=== PATIENT | male | born 1960 | race African-American/Black ===

== ENCOUNTER 2017-04-19 23:05 | Emergency (ER) | payer OTHER | END 2017-04-20 00:04 | disposition home or self-care (01) | LOC: ER 23:05 | DX: J02.9 Acute pharyngitis, unspecified (principal); H92.01 Otalgia, right ear; R13.10 Dysphagia, unspecified | CPT/HCPCS: 99283 ==

== ENCOUNTER 2018-11-25 19:57 | Inpatient (IN) | payer OTHER ==
[~2018-11-25] VITALS: Ht 182.9 cm; Wt 108.4 kg
[~2018-11-25 19:57] MED LIST: AMOX500C PO
[2018-11-25] MEDS ORDERED: diphenhydrAMINE 50 MG/ML VIAL ONE (20:01)
[2018-11-25] MEDS ORDERED: EPINEPHrine 1 MG/ML VIAL ONE (20:01)
[2018-11-25] MEDS ORDERED: FAMOTIDINE 20 MG/2 ML VIAL ONE (20:01)
[2018-11-25] MEDS ORDERED: methylPREDNISolone SOD SUCC PF 125 MG/2 ML VIAL. ONE (20:10)
[2018-11-25] MEDS ORDERED: EPINEPHrine 1 MG/ML VIAL IM PRN ×2 (20:10→22:45)
[2018-11-25] MEDS ORDERED: methylPREDNISolone SOD SUCC PF 125 MG/2 ML VIAL. IV ONE (20:11)
[2018-11-25] MEDS ORDERED: FAMOTIDINE 20 MG/2 ML VIAL IVP ONE (20:11)
[2018-11-25] MEDS ORDERED: diphenhydrAMINE 50 MG/ML VIAL IVP ONE (20:11)
[2018-11-25] MEDS ORDERED: ETOMIDATE 20 MG/10 ML VIAL. IV ONE (20:19)
[2018-11-25] MEDS ORDERED: IV NORMAL SALINE 1000ML BAG 1,000 ML IV ONE (20:19)
[2018-11-25] MEDS ORDERED: PROPOFOL 50 ML IV ONE ×2 (20:21→21:13)
[2018-11-25] MEDS ORDERED: MIDAZOLAM HCL/PF 5 MG/5 ML VIAL. IV ONE ×2 (20:24→21:32)
[2018-11-25] MEDS ORDERED: PROPOFOL 10 MG/ML (20ML) VIAL. IV ONE ×2 (20:25→21:12)
[2018-11-25] MEDS: PROPOFOL 100 ML IV PRN ×3 (20:26→23:58)
[2018-11-25] MEDS ORDERED: ROCURONIUM 50 MG/5 ML VIAL. IV ONE (20:29)
[2018-11-25 20:42] LABS: BASO % 1 % (0-3); EOS # 0.2 x10^3/uL (0.0-0.7); EOS % 2 % (0-3); HEMATOCRIT 49.3 % (39.0-53.0); HEMOGLOBIN 16.4 g/dL (13.0-17.5); LYMPH # 2.7 x10^3/uL (1.0-4.8); LYMPH % 35 % (24-48); MEAN CORPUSCULAR HEMOGLOBIN 27 pg (25-35); MEAN CORPUSCULAR HGB CONC 33 g/dL (31-37); MEAN CORPUSCULAR VOLUME 83 fL (79-100); MONO # 0.9 x10^3/uL (0.0-1.1); MONO % 12 % (0-9); NEUT # 3.8 x10^3/uL (1.8-7.7); NEUT % 50 % (31-73); PLATELET COUNT 258 x10^3/uL (140-400); RED BLOOD COUNT 5.98 x10^6/uL (4.30-5.70); WHITE BLOOD COUNT 7.5 x10^3/uL (4.0-11.0)
[2018-11-25] MEDS ORDERED: fentaNYL PF VIAL 100 MCG/2 ML VIAL IV PRN (20:45)
[2018-11-25 20:56] LABS: BASE EXCESS ABG -7 mmol/L (-3-3); HCO3 ABG 21 mmol/L (21-28); PCO2 ABG 49 mmHg (35-46); PO2 ABG 133 mmHg (65-108); SAT O2 ABG 98 % (92-99)
--- NOTE | 2018-11-25 20:56 | PHYS DOC ---
Past Medical History Past Medical History: Hypertension Past Surgical History: Other Additional Past Surgical Histo: RUE Alcohol Use: Occasionally Drug Use: None Intubation Procedure Intub Indication: Respiratory failure Consent: Unable to give consent due to emergent nature. Medications Used: see nursing note Procedure: The patient was placed in the appropriate position. Intubation was performed [CORD VISUALIZATION METHOD] [ET TUBE SIZE] endotracheal tube. [ET SE CURE]. Initial confirmation of placement included bilateral breath sounds, tube fogging, adequate chest rise, adequate pulse oximetry reading. A chest x-ray to verify correct placement of the tube showed appropriate tube position. The patient tolerated the procedure well. Complications: none. Critical Care Time Critical care time was [] minutes exclusive of procedures. Adult General Chief Complaint Chief Complaint: SHORTNESS OF BREATH HPI HPI 58-year-old male presents to the emergency department with complaints of throat swelling, difficulty swallowing. Onset was roughly 2 hours prior to his arrival. Patient states he woke up from a nap and had difficulty swallowing as well as some shortness of breath. Patient states he takes lisinopril. He's never had a reaction like this before. He has no facial swelling however is talking as if he has a hot potato in his mouth. Patient denies any fever, chest pain, nausea, vomiting. Nothing makes his symptoms worse, nothing makes them better. Saturations on arrival, 97% the patient was without acute distress. Review of Systems Review of Systems Constitutional: Denies fever or chills [] HENT: Difficulty swallowing Respiratory: Shortness of breath Cardiovascular: No additional information not addressed in HPI [] GI: Denies abdominal pain, nausea, vomiting, bloody stools or diarrhea [] Musculoskeletal: Denies back pain or joint pain [] Integument: Denies rash or skin lesions [] Neurologic: Denies headache, focal weakness or sensory changes [] All other systems were reviewed and found to be within normal limits, except as documented in this note. Current Medications Current Medications Current Medications Medications (Trade) Dose Ordered Sig/Logan Start Time Stop Time Status Last Admin Dose Admin Diphenhydramine HCl (Benadryl) 50 mg 1X ONCE 11/25/18 20:11 11/25/18 22:30 DC 11/25/18 20:11 50 MG Epinephrine HCl (Adrenalin) 0.3 mg PRN Q5MIN PRN 11/25/18 20:10 11/25/18 23:15 DC 11/25/18 20:10 0.3 MG Etomidate (Amidate) 20 mg 1X ONCE 11/25/18 20:19 11/25/18 22:28 DC 11/25/18 20:19 20 MG Famotidine (Pepcid Vial) 20 mg 1X ONCE 11/25/18 20:11 11/25/18 22:28 DC 11/25/18 20:11 20 MG Fentanyl Citrate (Fentanyl 2ml Vial) 50 mcg PRN Q1HR PRN 11/25/18 20:45 11/25/18 21:15 50 MCG Methylprednisolone Sodium Succinate (SOLU-Medrol 125MG VIAL) 125 mg 1X ONCE 11/25/18 20:11 11/25/18 22:30 DC 11/25/18 20:11 125 MG Midazolam HCl (Versed) 5 mg 1X ONCE 11/25/18 20:24 11/25/18 22:30 DC 11/25/18 20:24 5 MG Propofol (Diprivan) 100 mg 1X ONCE 11/25/18 20:25 11/25/18 22:30 DC 11/25/18 20:25 100 MG Rocuronium [place] (Zemuron) 50 mg 1X ONCE 11/25/18 20:29 11/25/18 22:32 DC 11/25/18 20:29 50 MG Sodium Chloride 1,000 ml @ 1,000 mls/hr 1X ONCE 11/25/18 20:19 11/25/18 22:38 DC 11/25/18 20:19 1,000 MLS/HR Allergies Allergies Allergies Coded Allergies Type Severity Reaction Last Updated Verified No Known Drug Allergies 11/25/18 No Physical Exam Physical Exam Constitutional: Well developed, well nourished, mild distress, non-toxic appearance. [] HENT: Normocephalic, atraumatic, bilateral external ears normal, oropharynx moist, uvula very large size sitting in the back of his throat he has some post erior pharynx swelling as well, no oral exudates, nose normal. [] Eyes: PERRLA, EOMI, conjunctiva normal, no discharge. [] Neck: Normal range of motion, no tenderness, supple, no stridor. [] Cardiovascular:Heart rate regular rhythm, no murmur [] Lungs & Thorax: Bilateral breath sounds clear to auscultation [] Abdomen: Bowel sounds normal, soft, no tenderness, no masses, no pulsatile masses. [] Skin: Warm, dry, no erythema, no rash. [] Extremities: No tenderness, no edema. [] Neurologic: Alert and oriented X 3, no focal deficits noted. [] Psychologic: Affect normal, judgement normal, mood normal. [] Current Patient Data Vital Signs Vital Signs Date Time Temp Pulse Resp B/P (MAP) Pulse Ox O2 Delivery O2 Flow Rate FiO2 11/25/18 20:50 100 185/86 (119) 100 Ventilator 11/25/18 19:57 97.6 20 97.6 Lab Values Laboratory Tests Test 11/25/18 20:03 11/25/18 20:48 White Blood Count 7.5 x10^3/uL (4.0-11.0) Red Blood Count 5.98 x10^6/uL (4.30-5.70) H Hemoglobin 16.4 g/dL (13.0-17.5) Hematocrit 49.3 % (39.0-53.0) Mean Corpuscular Volume 83 fL (79-100) Mean Corpuscular Hemoglobin 27 pg (25-35) Mean Corpuscular Hemoglobin Concent 33 g/dL (31-37) Red Cell Distribution Width 15.0 % (11.5-14.5) H Platelet Count 258 x10^3/uL (140-400) Neutrophils (%) (Auto) 50 % (31-73) Lymphocytes (%) (Auto) 35 % (24-48) Monocytes (%) (Auto) 12 % (0-9) H Eosinophils (%) (Auto) 2 % (0-3) Basophils (%) (Auto) 1 % (0-3) Neutrophils # (Auto) 3.8 x10^3/uL (1.8-7.7) Lymphocytes # (Auto) 2.7 x10^3/uL (1.0-4.8) Monocytes # (Auto) 0.9 x10^3/uL (0.0-1.1) Eosinophils # (Auto) 0.2 x10^3/uL (0.0-0.7) Basophils # (Auto) 0.0 x10^3/uL (0.0-0.2) O2 Saturation 98 % (92-99) Arterial Blood pH 7.24 (7.35-7.45) L Arterial Blood pCO2 at Patient Temp 49 mmHg (35-46) H Arterial Blood pO2 at Patient Temp 133 mmHg (65-108) H Arterial Blood HCO3 21 mmol/L (21-28) Arterial Blood Base Excess -7 mmol/L (-3-3) L FiO2 50 Laboratory Tests 11/25/18 20:03 EKG EKG EKG reviewed normal sinus rhythm appreciated, no evidence of acute ST or T wave change, nonurgently EKG he[] Interpretation Time: Interpretation time 2004 Radiology/Procedures Radiology/Procedures [facility] [address] [place] [address] IMAGING REPORT Signed PATIENT: JANKI SANDRA AACCOUNT: [id number] : 1960 LOCATION: [address] [place] [address] AGE: 58 SEX: M EXAM STATUS: ADM IN ORD. PHYSICIAN: PAULINE PICKERING MD REASON: post intubation PROCEDURE: PORTABLE CHEST 1V AP chest x-ray HISTORY: Status post intubation. FINDINGS: Nasogastric tube extends to the abdomen. Endotracheal tube tip 6 m above the dia. Borderline cardiomegaly. Elevation of the right diaphragm versus a large eventration with mild passive atelectasis of the right middle and lower lobes. There are bilateral perihilar and lower lobe opacities which could be atelectasis versus pulmonary edema given mild fissural thickening present which could indicate edema. IMPRESSION: Lines and tubes as described above. Borderline cardiomegaly. Perihilar and lower lobe opacities could represent atelectasis or mild pulmonary edema. AP abdomen x-ray HISTORY: Orogastric tube verification after intubation. FINDINGS: The left lateral abdomen and flank are outside the [id number]. Heterogeneous opacities lung bases. Nasogastric tube tip left upper quadrant general radiographic region gastric body. No dilated bowel loops. Mild volume of stool within the right-sided colon. Bones unremarkable. IMPRESSION: Orogastric intubation. Electronically signed by: Waqar Salinas MD (11/25/2018 11:22 PM) [facility] DICTATED and SIGNED BY: WAQAR SALINAS MD DATE: 11/25/18 2266 [] Course & Med Decision Making Course & Med Decision Making Pertinent Labs and Imaging studies reviewed. (See chart for details) []58-year-old male presents to the emergency department with complaints of throa t swelling, difficulty swallowing. Onset was roughly 2 hours prior to his arrival. Patient states he woke up from a nap and had difficulty swallowing as well as some shortness of breath. Patient states he takes lisinopril. He's never had a reaction like this before. He has no facial swelling however is talking as if he has a hot potato in his mouth. Patient denies any fever, chest pain, nausea, vomiting. Nothing makes his symptoms worse, nothing makes them better. Saturations on arrival, 97% the patient was without acute distress. Patient was evaluated in the emergency department with concerns for posterior edema, uvula swelling, compromise. Patient was provided with Solu-Medrol, 125 mg, Pepcid, 20 mg, Benadryl, 50 mg. As well, patient received 0.3 mg epinephrine IM. Given continued concern of swelling and airway compromise, patient was electively intubated. Please see intubation procedure note. Tube was secured 24th the teeth. Chest x-ray was obtained revealing evidence of pulmonary edema, placement of tube appropriate. Orogastric tube in place. Lasix 40mg IV x 1 Propofol/Versed used for sedation Discussed findings with patient's significant other at bedside and plans for admission to the ICU. Discussed admission with Dr. Lopez. Pulmonary consultation from ER. Patient stable after airway protected Dragon Disclaimer Dragon Disclaimer This electronic medical record was generated, in whole or in part, using a voice recognition dictation system. Intubation Procedure Intub Indication: Respiratory failure Consent: Verbal consent, discussed with patient prior to intubation Medications Used: see nursing note Procedure: The patient was placed in the appropriate position. Intubation was performed endotracheal tube 7.5, use of glidescope. Initial confirmation of placement included bilateral breath sounds, tube fogging, adequate chest rise, adequate pulse oximetry reading. A chest x-ray to verify correct placement of the tube showed appropriate tube position. The patient tolerated the procedure well. Complications: none. Critical Care Time Critical care time was 40 minutes exclusive of procedures. Departure Departure Impression: Primary Impression: Angio-edema Additional Impressions: Uvular edema Pulmonary edema Disposition: ADMITTED INPATIENT Admitting Physician: Mayela Lopez Condition: GUARDED Referrals: MAYELA LOPEZ MD (PCP) Problem Qualifiers Primary Impression: Angio-edema Encounter type: initial encounter Qualified Codes: T78.3XXA - Angioneurotic edema, initial encounter Additional Impressions: Pulmonary edema Chronicity: acute Qualified Codes: J81.0 - Acute pulmonary edema PAULINE PICKERING MD Nov 25, 2018 20:56
[2018-11-25] MEDS ORDERED: CHLORHEXIDINE 0.12% 15 ML MOUTHWASH. MM SCH (21:00)
[2018-11-25] MEDS ORDERED: FUROSEMIDE 40 MG/4 ML VIAL. IVP ONE (21:00)
[2018-11-25] MEDS ORDERED: ONDANSETRON PF 4 MG/2 ML VIAL. IV PRN (21:15)
[2018-11-25] MEDS ORDERED: MIDAZOLAM 100mg/100ml NS BAG 100 ML IV PRN (21:15)
[2018-11-25] MEDS: fentaNYL PF VIAL 100 MCG/2 ML VIAL IV PRN (21:15)
[2018-11-25 21:36] LABS: CALCIUM 8.3 mg/dL (8.5-10.1); GFR 92.5; POTASSIUM 3.5 mmol/L (3.5-5.1)
[2018-11-25 21:43] LABS: ALBUMIN 3.4 g/dL (3.4-5.0); TOTAL BILIRUBIN 0.4 mg/dL (0.2-1.0); TOTAL PROTEIN 6.7 g/dL (6.4-8.2)
[2018-11-25 21:45] VITALS: BP 170/85
[2018-11-25 22:00] VITALS: BP 160/79
--- NOTE | 2018-11-25 22:00 | NUR ---
Pt arrived on unit at 2150 accompanied by ED RN, RT, and medic student. Pt intubated and being ventilated via BVM while en route to ICU, ventilator initiated after arrival on unit. CHG bath completed on admission, report received from ED RN, drip rates and plan of care verified. Pt accompanied by several family members and friends who were oriented to ICU policies. Dr. Lopez contacted and orders received. Will continue to monitor.
[2018-11-25 22:15] VITALS: BP 148/76
[2018-11-25 22:26] LABS: FIO2 ABG 50
[2018-11-25 22:30] VITALS: BP 136/70
[2018-11-25] MEDS ORDERED: SUCCINYLCHOLINE 200 MG/10 ML VIAL. IV ONE (22:30)
[2018-11-25 22:45] VITALS: BP 146/74
[2018-11-25] MEDS ORDERED: ACETAMINOPHEN 325 MG TABLET. PO PRN (22:45)
[2018-11-25 23:00] VITALS: BP 138/73
--- NOTE | 2018-11-25 23:24 | RAD ---
AP chest x-ray HISTORY: Status post intubation. FINDINGS: Nasogastric tube extends to the abdomen. Endotracheal tube tip 6 m above the dia. Borderline cardiomegaly. Elevation of the right diaphragm versus a large eventration with mild passive atelectasis of the right middle and lower lobes. There are bilateral perihilar and lower lobe opacities which could be atelectasis versus pulmonary edema given mild fissural thickening present which could indicate edema. IMPRESSION: Lines and tubes as described above. Borderline cardiomegaly. Perihilar and lower lobe opacities could represent atelectasis or mild pulmonary edema. AP abdomen x-ray HISTORY: Orogastric tube verification after intubation. FINDINGS: The left lateral abdomen and flank are outside the [id number]. Heterogeneous opacities lung bases. Nasogastric tube tip left upper quadrant general radiographic region gastric body. No dilated bowel loops. Mild volume of stool within the right-sided colon. Bones unremarkable. IMPRESSION: Orogastric intubation. Electronically signed by: Abdulaziz Salinas MD (11/25/2018 11:22 PM) [facility]
--- NOTE | 2018-11-25 23:24 | RAD ---
AP chest x-ray HISTORY: Status post intubation. FINDINGS: Nasogastric tube extends to the abdomen. Endotracheal tube tip 6 m above the dia. Borderline cardiomegaly. Elevation of the right diaphragm versus a large eventration with mild passive atelectasis of the right middle and lower lobes. There are bilateral perihilar and lower lobe opacities which could be atelectasis versus pulmonary edema given mild fissural thickening present which could indicate edema. IMPRESSION: Lines and tubes as described above. Borderline cardiomegaly. Perihilar and lower lobe opacities could represent atelectasis or mild pulmonary edema. AP abdomen x-ray HISTORY: Orogastric tube verification after intubation. FINDINGS: The left lateral abdomen and flank are outside the [id number]. Heterogeneous opacities lung bases. Nasogastric tube tip left upper quadrant general radiographic region gastric body. No dilated bowel loops. Mild volume of stool within the right-sided colon. Bones unremarkable. IMPRESSION: Orogastric intubation. Electronically signed by: Abdulaziz Salinas MD (11/25/2018 11:22 PM) [facility]
[2018-11-25] MEDS: diphenhydrAMINE 50 MG/ML VIAL IV SCH (23:54)
[2018-11-26] VITALS (24 sets, daily range): BP systolic 108–184; BP diastolic 48–89
[2018-11-26] MEDS: PROPOFOL 100 ML IV PRN ×8 (02:28→21:52)
[2018-11-26] MEDS: diphenhydrAMINE 50 MG/ML VIAL IV SCH ×5 (03:52→19:52)
[2018-11-26] MEDS ORDERED: methylPREDNISolone SOD SUCC PF 125 MG/2 ML VIAL. IV SCH (06:00)
[2018-11-26] MEDS: HEPARIN for SUB-Q USE 5,000 UNIT/ML VIAL. SQ SCH ×3 (06:12→21:50)
[2018-11-26] MEDS: IPRATRPIUM/ALBUTEROL 0.5/2.5MG 3 ML NEBU. NEB SCH ×4 (07:08→19:42)
[2018-11-26 07:12] LABS: BASO % 0 % (0-3); EOS % 0 % (0-3); HEMATOCRIT 48.1 % (39.0-53.0); HEMOGLOBIN 16.1 g/dL (13.0-17.5); LYMPH # 0.9 x10^3/uL (1.0-4.8); LYMPH % 11 % (24-48); MEAN CORPUSCULAR HEMOGLOBIN 28 pg (25-35); MEAN CORPUSCULAR HGB CONC 34 g/dL (31-37); MEAN CORPUSCULAR VOLUME 83 fL (79-100); MONO # 0.1 x10^3/uL (0.0-1.1); MONO % 1 % (0-9); NEUT # 6.8 x10^3/uL (1.8-7.7); NEUT % 87 % (31-73); PLATELET COUNT 248 x10^3/uL (140-400); RED BLOOD COUNT 5.83 x10^6/uL (4.30-5.70); RED CELL DISTRIBUTION WIDTH 14.7 % (11.5-14.5); WHITE BLOOD COUNT 7.8 x10^3/uL (4.0-11.0)
[2018-11-26 07:29] LABS: BASE EXCESS ABG -1 mmol/L (-3-3); HCO3 ABG 24 mmol/L (21-28); PCO2 ABG 43 mmHg (35-46); PO2 ABG 85 mmHg (65-108); SAT O2 ABG 96 % (92-99)
[2018-11-26 07:39] LABS: ALBUMIN 3.8 g/dL (3.4-5.0); CALCIUM 9.1 mg/dL (8.5-10.1); CREATININE 1.2 mg/dL (0.7-1.3); TOTAL BILIRUBIN 0.4 mg/dL (0.2-1.0); TOTAL PROTEIN 7.6 g/dL (6.4-8.2)
[2018-11-26 07:40] LABS: FIO2 ABG 40
--- NOTE | 2018-11-26 07:41 | EKG ---
[facility] [address] [place] [address] Test Date: 2018-11-25 Test Time: 20:05:04 Pat Name: JANKI SANDRA Department: Room: 104 1 Gender: M [employer] Rep[employer]r: : 1960 Requested By: MAYELA ALLRED Order Number: [id number] Reading MD: Joesph Dior MD Measurements Intervals [place] Rate: 85 P: 46 MA: 162 QRS: 12 QRSD: 88 T: 44 QT: 372 QTc: 448 Interpretive Statements SINUS RHYTHM NON-SPECIFIC ST/T CHANGES Electronically Signed On 12-01-2018 15:40:52 CDT by Joesph Dior MD
[2018-11-26] MEDS ORDERED: methylPREDNISolone SOD SUCC PF 125 MG/2 ML VIAL. IV ONE (07:45)
[2018-11-26 08:07] LABS: % ATYL 1 % (0-0); % BANDS 7 % (0-9); % LYMPHS 10 % (24-48); % MONOS 2 % (0-10); % SEGS 80 % (35-66); PLT ESTIMATE ADEQUATE (ADEQUATE)
[2018-11-26] MEDS ORDERED: CHLORHEXIDINE 0.12% 15 ML MOUTHWASH. MM SCH (09:00)
[2018-11-26] MEDS ORDERED: IV DEXTROSE 5 %-0.45 % NACL 1,000 ML IV SCH (11:00)
--- NOTE | 2018-11-26 11:07 | PDOC ---
Provider Note Provider Note H&P dictated #[id number] MAYELA ALLRED MD Nov 26, 2018 11:07
[2018-11-26] MEDS: INSULIN LISPRO 300 UNITS/3 ML VIAL. SQ SCH ×2 (11:15→17:04)
--- NOTE | 2018-11-26 11:39 | PDOC ---
PULMONARY PROGRESS NOTES Vitals Vital Signs Date Time Temp Pulse Resp B/P (MAP) Pulse Ox O2 Delivery O2 Flow Rate FiO2 11/26/18 11:10 96 Ventilator 11/26/18 11:09 102 18 155/89 (111) 11/26/18 07:43 98.8 98.8 Labs Laboratory Tests Test 11/25/18 20:03 11/25/18 20:48 11/25/18 21:05 11/26/18 04:19 White Blood Count 7.5 x10^3/uL (4.0-11.0) 7.8 x10^3/uL (4.0-11.0) Red Blood Count 5.98 x10^6/uL (4.30-5.70) 5.83 x10^6/uL (4.30-5.70) Hemoglobin 16.4 g/dL (13.0-17.5) 16.1 g/dL (13.0-17.5) Hematocrit 49.3 % (39.0-53.0) 48.1 % (39.0-53.0) Mean Corpuscular Volume 83 fL (79-100) 83 fL (79-100) Mean Corpuscular Hemoglobin 27 pg (25-35) 28 pg (25-35) Mean Corpuscular Hemoglobin Concent 33 g/dL (31-37) 34 g/dL (31-37) Red Cell Distribution Width 15.0 % (11.5-14.5) 14.7 % (11.5-14.5) Platelet Count 258 x10^3/uL (140-400) 248 x10^3/uL (140-400) Neutrophils (%) (Auto) 50 % (31-73) 87 % (31-73) Lymphocytes (%) (Auto) 35 % (24-48) 11 % (24-48) Monocytes (%) (Auto) 12 % (0-9) 1 % (0-9) Eosinophils (%) (Auto) 2 % (0-3) 0 % (0-3) Basophils (%) (Auto) 1 % (0-3) 0 % (0-3) Neutrophils # (Auto) 3.8 x10^3/uL (1.8-7.7) 6.8 x10^3/uL (1.8-7.7) Lymphocytes # (Auto) 2.7 x10^3/uL (1.0-4.8) 0.9 x10^3/uL (1.0-4.8) Monocytes # (Auto) 0.9 x10^3/uL (0.0-1.1) 0.1 x10^3/uL (0.0-1.1) Eosinophils # (Auto) 0.2 x10^3/uL (0.0-0.7) 0.0 x10^3/uL (0.0-0.7) Basophils # (Auto) 0.0 x10^3/uL (0.0-0.2) 0.0 x10^3/uL (0.0-0.2) O2 Saturation 98 % (92-99) Arterial Blood pH 7.24 (7.35-7.45) Arterial Blood pCO2 at Patient Temp 49 mmHg (35-46) Arterial Blood pO2 at Patient Temp 133 mmHg (65-108) Arterial Blood HCO3 21 mmol/L (21-28) Arterial Blood Base Excess -7 mmol/L (-3-3) FiO2 50 Sodium Level 141 mmol/L (136-145) 139 mmol/L (136-145) Potassium Level 3.5 mmol/L (3.5-5.1) 4.0 mmol/L (3.5-5.1) Chloride Level 105 mmol/L (98-107) 102 mmol/L (98-107) Carbon Dioxide Level 25 mmol/L (21-32) 24 mmol/L (21-32) Anion Gap 11 (6-14) 13 (6-14) Blood Urea Nitrogen 17 mg/dL (8-26) 17 mg/dL (8-26) Creatinine 1.0 mg/dL (0.7-1.3) 1.2 mg/dL (0.7-1.3) Estimated GFR (Cockcroft-Gault) 92.5 75.0 BUN/Creatinine Ratio 17 (6-20) 14 (6-20) Glucose Level 175 mg/dL (70-99) 198 mg/dL (70-99) Calcium Level 8.3 mg/dL (8.5-10.1) 9.1 mg/dL (8.5-10.1) Total Bilirubin 0.4 mg/dL (0.2-1.0) 0.4 mg/dL (0.2-1.0) Aspartate Amino Transf (AST/SGOT) 68 U/L (15-37) 54 U/L (15-37) Alanine Aminotransferase (ALT/SGPT) 68 U/L (16-63) 80 U/L (16-63) Alkaline Phosphatase 71 U/L (46-116) 75 U/L (46-116) Total Protein 6.7 g/dL (6.4-8.2) 7.6 g/dL (6.4-8.2) Albumin 3.4 g/dL (3.4-5.0) 3.8 g/dL (3.4-5.0) Albumin/Globulin Ratio 1.0 (1.0-1.7) 1.0 (1.0-1.7) Segmented Neutrophils % 80 % (35-66) Band Neutrophils % 7 % (0-9) Lymphocytes % 10 % (24-48) Atypical Lymphocytes % (Manual) 1 % (0-0) Monocytes % 2 % (0-10) Platelet Estimate Adequate (ADEQUATE) Test 11/26/18 07:20 O2 Saturation 96 % (92-99) Arterial Blood pH 7.37 (7.35-7.45) Arterial Blood pCO2 at Patient Temp 43 mmHg (35-46) Arterial Blood pO2 at Patient Temp 85 mmHg (65-108) Arterial Blood HCO3 24 mmol/L (21-28) Arterial Blood Base Excess -1 mmol/L (-3-3) FiO2 40 Laboratory Tests Test 11/25/18 20:03 11/25/18 20:48 11/25/18 21:05 11/26/18 04:19 White Blood Count 7.5 x10^3/uL (4.0-11.0) 7.8 x10^3/uL (4.0-11.0) Red Blood Count 5.98 x10^6/uL (4.30-5.70) 5.83 x10^6/uL (4.30-5.70) Hemoglobin 16.4 g/dL (13.0-17.5) 16.1 g/dL (13.0-17.5) Hematocrit 49.3 % (39.0-53.0) 48.1 % (39.0-53.0) Mean Corpuscular Volume 83 fL (79-100) 83 fL (79-100) Mean Corpuscular Hemoglobin 27 pg (25-35) 28 pg (25-35) Mean Corpuscular Hemoglobin Concent 33 g/dL (31-37) 34 g/dL (31-37) Red Cell Distribution Width 15.0 % (11.5-14.5) 14.7 % (11.5-14.5) Platelet Count 258 x10^3/uL (140-400) 248 x10^3/uL (140-400) Neutrophils (%) (Auto) 50 % (31-73) 87 % (31-73) Lymphocytes (%) (Auto) 35 % (24-48) 11 % (24-48) Monocytes (%) (Auto) 12 % (0-9) 1 % (0-9) Eosinophils (%) (Auto) 2 % (0-3) 0 % (0-3) Basophils (%) (Auto) 1 % (0-3) 0 % (0-3) Neutrophils # (Auto) 3.8 x10^3/uL (1.8-7.7) 6.8 x10^3/uL (1.8-7.7) Lymphocytes # (Auto) 2.7 x10^3/uL (1.0-4.8) 0.9 x10^3/uL (1.0-4.8) Monocytes # (Auto) 0.9 x10^3/uL (0.0-1.1) 0.1 x10^3/uL (0.0-1.1) Eosinophils # (Auto) 0.2 x10^3/uL (0.0-0.7) 0.0 x10^3/uL (0.0-0.7) Basophils # (Auto) 0.0 x10^3/uL (0.0-0.2) 0.0 x10^3/uL (0.0-0.2) O2 Saturation 98 % (92-99) Arterial Blood pH 7.24 (7.35-7.45) Arterial Blood pCO2 at Patient Temp 49 mmHg (35-46) Arterial Blood pO2 at Patient Temp 133 mmHg (65-108) Arterial Blood HCO3 21 mmol/L (21-28) Arterial Blood Base Excess -7 mmol/L (-3-3) FiO2 50 Sodium Level 141 mmol/L (136-145) 139 mmol/L (136-145) Potassium Level 3.5 mmol/L (3.5-5.1) 4.0 mmol/L (3.5-5.1) Chloride Level 105 mmol/L (98-107) 102 mmol/L (98-107) Carbon Dioxide Level 25 mmol/L (21-32) 24 mmol/L (21-32) Anion Gap 11 (6-14) 13 (6-14) Blood Urea Nitrogen 17 mg/dL (8-26) 17 mg/dL (8-26) Creatinine 1.0 mg/dL (0.7-1.3) 1.2 mg/dL (0.7-1.3) Estimated GFR (Cockcroft-Gault) 92.5 75.0 BUN/Creatinine Ratio 17 (6-20) 14 (6-20) Glucose Level 175 mg/dL (70-99) 198 mg/dL (70-99) Calcium Level 8.3 mg/dL (8.5-10.1) 9.1 mg/dL (8.5-10.1) Total Bilirubin 0.4 mg/dL (0.2-1.0) 0.4 mg/dL (0.2-1.0) Aspartate Amino Transf (AST/SGOT) 68 U/L (15-37) 54 U/L (15-37) Alanine Aminotransferase (ALT/SGPT) 68 U/L (16-63) 80 U/L (16-63) Alkaline Phosphatase 71 U/L (46-116) 75 U/L (46-116) Total Protein 6.7 g/dL (6.4-8.2) 7.6 g/dL (6.4-8.2) Albumin 3.4 g/dL (3.4-5.0) 3.8 g/dL (3.4-5.0) Albumin/Globulin Ratio 1.0 (1.0-1.7) 1.0 (1.0-1.7) Segmented Neutrophils % 80 % (35-66) Band Neutrophils % 7 % (0-9) Lymphocytes % 10 % (24-48) Atypical Lymphocytes % (Manual) 1 % (0-0) Monocytes % 2 % (0-10) Platelet Estimate Adequate (ADEQUATE) Test 11/26/18 07:20 O2 Saturation 96 % (92-99) Arterial Blood pH 7.37 (7.35-7.45) Arterial Blood pCO2 at Patient Temp 43 mmHg (35-46) Arterial Blood pO2 at Patient Temp 85 mmHg (65-108) Arterial Blood HCO3 24 mmol/L (21-28) Arterial Blood Base Excess -1 mmol/L (-3-3) FiO2 40 Medications Active Scripts Medications Dose Route/Sig Max Daily Dose Days Date Category Amoxicillin 500 Mg Capsule 2 Cap PO BID 04/19/17 Rx Impression . NOTE DICTATED RESP FAILURE SEC TO ANGIOEDEMA POSSIBLE EXTUBATION WITHIN 23-48 HOURS THANKS GAVIN CASTRO MD Nov 26, 2018 11:39
--- NOTE | 2018-11-26 11:46 | HP ---
ADMIT DATE: 11/25/2018 HISTORY OF PRESENT ILLNESS: This 58-year-old male who has a history of hypertension and hyperlipidemia, who woke up from a nap yesterday and became quite short of breath and had difficulty swallowing as well as he had some shortness of breath. The patient takes lisinopril and he is also on Lipitor 20 mg daily, he is on lisinopril 10 mg daily. In the Emergency Room, the patient was noted to have angioedema and his breathing got worse emergently and was intubated and was given IV steroids and admitted to the Intensive Care Unit. REVIEW OF SYSTEMS: At present time, the patient is sedated and unable to do systems review. The patient was also given IV Lasix in the Emergency Room. I have discussed with the family and I looked at his medication bottles. They do not have any Lipitor at this time. Even the lisinopril bottle that the family has brought is from 05/2017 and still has most of the tablets in the bottle. I am not sure what he took the night before yesterday. Family does not have that information. Unable to obtain any information from the patient, unable to do systems review. PAST MEDICAL HISTORY: The patient has history of hypertension and hyperlipidemia. He has a history of diverticulosis and internal hemorrhoids diagnosed in a colonoscopy in 11/2010. He also has allergic rhinitis. PAST SURGICAL HISTORY: He had a muscle tear in 2010 and was repaired and also had lipoma removal. FAMILY HISTORY: Father had pancreatic cancer. Maternal aunt had cancer of the breast. Maternal uncle had carcinoma of lung. Paternal aunt had coronary artery disease. Mother had diabetes mellitus. SOCIAL HISTORY: The patient is a former smoker. No history of alcoholism or drug abuse. MEDICATIONS: Reviewed, not sure what he is actually taking. OBJECTIVE: VITAL SIGNS: Stable. On admission, his blood pressure was 214/105, temperature 97.6, pulse 85 per minute, and respirations 20 per minute. Currently, the blood pressure is 134/62 mmHg. GENERAL: The patient is sedated on mechanical ventilation, eyes closed. HEENT: Partial exam unremarkable. SKIN: Warm and dry. There is no cyanosis. The patient is orally intubated. NECK: Supple. JVP normal. No thyromegaly. Trachea midline. Swelling of the tongue and lips is improving. No redness noted. CARDIOVASCULAR: S1, S2 regular. LUNGS: Decreased breath sounds at bases, clear. ABDOMEN: Soft, nontender, no guarding, no rigidity. Bowel sounds present. EXTREMITIES: No edema. CENTRAL NERVOUS SYSTEM: Sedated. LABORATORY FINDINGS: Sodium was 141, potassium 3.5 yesterday. Sodium is 139, potassium 4 today, glucose 175, 198, AST 68, and ALT 54. ABG was pH 7.24, pCO2 of 49 and pO2 of 133 and follow up ABGs: pH 7.37, pCO2 of 43 and pO2 of 85. WBC count 7.5, hemoglobin 16.4, polys 50, eosinophils are 2, monocytes 12 on admission. BUN is 17 and creatinine 1.2 today. IMPRESSION: 1. Acute respiratory failure. The patient is intubated. 2. Acute angioedema, etiology not clear. The patient is supposed to be on lisinopril 10 mg daily and Lipitor 20 mg daily at bedtime and he has also been prescribed Singulair and Flonase previously for allergies. I am not sure what he has taken or currently taking. 3. Hypertension. 4. Hyperlipidemia. 5. Noncompliance. 6. History of diverticulosis. PLAN: Condition and treatment were extensively discussed with the patient and the patient's family. The patient is sedated at this time. Consultation has been obtained with Dr. Winchester and we will see when he can be taken off the sedation and when he can be extubated. We will continue Solu-Medrol 100 mg IV q. 6 hours for now. Check labs in a.m. The patient will need an EpiPen on discharge and likely follow up with the rail setter. For details, please refer to the orders. The patient has been admitted to Intensive Care Unit. MAYELA ALLRED MD DR: BENJI/barbara JOB#: [id number] / [id number]
[2018-11-26] MEDS: CETIRIZINE HCL 10 MG TABLET. PO SCH (12:00)
[2018-11-26] MEDS ORDERED: methylPREDNISolone SOD SUCC PF 40 MG/ML VIAL. IV SCH (12:00)
[2018-11-26] MEDS ORDERED: methylPREDNISolone SOD SUCC PF 125 MG/2 ML VIAL. ONE (12:10)
--- NOTE | 2018-11-26 12:14 | CONS ---
DATE OF CONSULTATION: 11/26/2018 ATTENDING PHYSICIAN: Dr. Lopez. REASON FOR CONSULTATION: The patient is seen in pulmonary consultation at the request of Dr. Lopez for acute respiratory failure requiring mechanical ventilation. HISTORY OF PRESENT ILLNESS: The patient is a 58-year-old that presented to the Emergency Room with a sudden onset of throat swelling, difficulty swallowing. Two hours prior to his arrival, the patient started to experience some difficulty with the tongue swelling and swallowing. Apparently, he takes lisinopril for hypertension. He has not had a reaction like that in the past. He presented to the Emergency Room, was intubated. He is currently in the intensive care unit on mechanical ventilation. His arterial blood gas revealed a pH of 7.37, PaCO2 of 43, pO2 of 85. White count was normal. Electrolytes were noted. BUN and creatinine were normal. Chest x-ray was reviewed. There is borderline cardiomegaly with perihilar infiltrates suggestive of atelectasis and mild edema. PAST MEDICAL HISTORY: Otherwise remarkable for hyperlipidemia, hypertension. He does not smoke. PAST SURGICAL HISTORY: No recent major surgeries. ALLERGIES: LISINOPRIL AND ALICIA INHIBITORS. FAMILY HISTORY: Diabetes and cancer. REVIEW OF SYSTEMS: Unobtainable secondary to the patient's condition. CURRENT MEDICATIONS: List was reviewed. PHYSICAL EXAMINATION: GENERAL: The patient was supported with mechanical ventilation, sedated. VITAL SIGNS: Stable. O2 saturation was greater than 92%. HEENT: Eyes, the sclerae were nonicteric. NECK: Jugular venous distention was not elevated. No lymphadenopathy. CHEST: Full expansion. LUNGS: Clear. No wheezes. CARDIOVASCULAR: Regular rate and rhythm with S1, S2. No S3. ABDOMEN: Soft, nontender, nondistended. EXTREMITIES: No clubbing, cyanosis or edema. NEUROLOGIC: The patient was sedated. LABORATORY DATA: Reviewed. White count was normal. Hemoglobin and hematocrit were noted. Electrolytes were noted. Arterial blood gas, as indicated above. IMPRESSION: 1. Acute respiratory failure secondary to angioedema. 2. ALICIA inhibitor related angioedema. 3. Abnormal x-ray revealing acute pulmonary edema. 4. Hypertension. PLAN: 1. We will continue current support. The patient's tongue continues to be swollen. 2. Possible spontaneous trial in the a.m. with subsequent extubation. 3. Continue current meds. 4. DVT and GI prophylaxis. The above was discussed with sister and a friend at the bedside. GAVIN CASTRO MD DR: Carolee JOB#: [id number] / [id number]
[2018-11-26] MEDS: methylPREDNISolone SOD SUCC PF 125 MG/2 ML VIAL. IV SCH ×2 (13:16→17:55)
[2018-11-26] MEDS: hydrALAZINE 20 MG/ML VIAL. IVP PRN (13:18)
[2018-11-26] MEDS: fentaNYL PF VIAL 100 MCG/2 ML VIAL IV PRN ×2 (14:51→17:55)
[2018-11-26] MEDS ORDERED: MIDAZOLAM HCL/PF 5 MG/5 ML VIAL. ONE (16:00)
--- NOTE | 2018-11-26 16:05 | NUR ---
SS following for discharge planning. SS reviewed pt chart. Pt is from home and is currently on the vent. SS will continue to follow for discharge planning.
--- NOTE | 2018-11-26 18:35 | NUR ---
Patient resting comfortably on vent , RASS +2,RASS+3 with propofol for sedation. Fentanyl IVP administered for pain management. Tongue swollen, VSS. Family at bedside. Will continue to monitor patient.
[2018-11-26] MEDS: IV NORMAL SALINE 1000ML BAG 1,000 ML IV SCH (19:52)
[2018-11-26] MEDS: MONTELUKAST SODIUM 10 MG TABLET. PO SCH (20:29)
[2018-11-26] MEDS: FAMOTIDINE 20 MG/2 ML VIAL IVP SCH (20:56)
[2018-11-27] VITALS (24 sets, daily range): BP systolic 119–184; BP diastolic 47–77
[2018-11-27] MEDS: diphenhydrAMINE 50 MG/ML VIAL IV SCH ×7 (00:34→23:40)
[2018-11-27] MEDS: methylPREDNISolone SOD SUCC PF 125 MG/2 ML VIAL. IV SCH ×5 (00:36→23:39)
[2018-11-27] MEDS: PROPOFOL 100 ML IV PRN ×10 (00:37→23:40)
[2018-11-27 05:04] LABS: BASO % 0 % (0-3); EOS % 0 % (0-3); HEMATOCRIT 47.8 % (39.0-53.0); HEMOGLOBIN 15.7 g/dL (13.0-17.5); LYMPH # 1.4 x10^3/uL (1.0-4.8); LYMPH % 7 % (24-48); MEAN CORPUSCULAR HEMOGLOBIN 27 pg (25-35); MEAN CORPUSCULAR HGB CONC 33 g/dL (31-37); MEAN CORPUSCULAR VOLUME 83 fL (79-100); MONO # 0.7 x10^3/uL (0.0-1.1); MONO % 4 % (0-9); NEUT # 16.9 x10^3/uL (1.8-7.7); NEUT % 89 % (31-73); PLATELET COUNT 248 x10^3/uL (140-400); RED BLOOD COUNT 5.77 x10^6/uL (4.30-5.70); RED CELL DISTRIBUTION WIDTH 14.6 % (11.5-14.5)
[2018-11-27] MEDS: HEPARIN for SUB-Q USE 5,000 UNIT/ML VIAL. SQ SCH ×3 (06:02→21:50)
[2018-11-27 06:17] LABS: ALBUMIN 3.4 g/dL (3.4-5.0); ALBUMIN/GLOBULIN RATIO 0.9 (1.0-1.7); CALCIUM 8.4 mg/dL (8.5-10.1); CREATININE 1.2 mg/dL (0.7-1.3); POTASSIUM 3.8 mmol/L (3.5-5.1); TOTAL BILIRUBIN 0.3 mg/dL (0.2-1.0)
[2018-11-27] MEDS: CETIRIZINE HCL 10 MG TABLET. PO SCH (08:16)
[2018-11-27] MEDS: FAMOTIDINE 20 MG/2 ML VIAL IVP SCH ×2 (08:17→20:37)
[2018-11-27] MEDS: INSULIN LISPRO 300 UNITS/3 ML VIAL. SQ SCH ×3 (08:19→16:56)
[2018-11-27] MEDS: IV NORMAL SALINE 1000ML BAG 1,000 ML IV SCH (08:19)
--- NOTE | 2018-11-27 08:42 | RAD ---
Examination: PORTABLE CHEST 1V History: Respiratory failure Comparison/Correlation: 11/25/2018 chest x-ray exam Findings: Portable semiupright frontal view of the chest was obtained. Enteric tube is identified. Endotracheal tube terminates 5.5 cm from the dia. Heart size is normal. Left basilar atelectasis is evident. No pneumothorax. Right lung field is unremarkable. Elevation right hemidiaphragm is noted. Impression: Left basilar atelectasis. Decreased left basilar retrocardiac aeration in the interval. Electronically signed by: Александр Stratton MD (11/27/2018 8:40 AM) [facility]
--- NOTE | 2018-11-27 09:34 | PDOC ---
IM PROGRESS NOTES- Subjective Subjective Patient is more responsive but he is on mechanical ventilation and unable to respond well. Unable to do full systems review. He will be sedated again until he is extubated. Objective Vitals/I&O Vital Signs Date Time Temp Pulse Resp B/P (MAP) Pulse Ox O2 Delivery O2 Flow Rate FiO2 11/27/18 08:00 95 Ventilator 11/27/18 07:00 98.9 97 18 145/54 (84) 98.9 I & O 11/26/18 11/26/18 11/27/18 15:00 23:00 07:00 Intake Total 55 ml 988 ml 1263 ml Output Total 770 ml 480 ml 875 ml Balance -715 ml 508 ml 388 ml Physical Exam Physical Exam General appearance - sleepy,well appearing, and in no distress and opens eyes. Mental Status - sleepy Head - normal He has some swelling of the lips and tongue. Chest -) sounds at bases Heart - S1 and S2 normal Abdomen - soft, non tender, non distended, Neurological -sleepy. Extremities - no pedal edema Skin - warm and dry Labs Laboratory Tests Test 11/26/18 16:51 11/26/18 21:02 11/27/18 04:30 11/27/18 08:10 Glucose (Fingerstick) 234 mg/dL (70-99) H 208 mg/dL (70-99) H 213 mg/dL (70-99) H White Blood Count 19.0 x10^3/uL (4.0-11.0) H Red Blood Count 5.77 x10^6/uL (4.30-5.70) H Hemoglobin 15.7 g/dL (13.0-17.5) Hematocrit 47.8 % (39.0-53.0) Mean Corpuscular Volume 83 fL (79-100) Mean Corpuscular Hemoglobin 27 pg (25-35) Mean Corpuscular Hemoglobin Concent 33 g/dL (31-37) Red Cell Distribution Width 14.6 % (11.5-14.5) H Platelet Count 248 x10^3/uL (140-400) Neutrophils (%) (Auto) 89 % (31-73) H Lymphocytes (%) (Auto) 7 % (24-48) L Monocytes (%) (Auto) 4 % (0-9) Eosinophils (%) (Auto) 0 % (0-3) Basophils (%) (Auto) 0 % (0-3) Neutrophils # (Auto) 16.9 x10^3/uL (1.8-7.7) H Lymphocytes # (Auto) 1.4 x10^3/uL (1.0-4.8) Monocytes # (Auto) 0.7 x10^3/uL (0.0-1.1) Eosinophils # (Auto) 0.0 x10^3/uL (0.0-0.7) Basophils # (Auto) 0.0 x10^3/uL (0.0-0.2) Sodium Level 138 mmol/L (136-145) Potassium Level 3.8 mmol/L (3.5-5.1) Chloride Level 103 mmol/L (98-107) Carbon Dioxide Level 23 mmol/L (21-32) Anion Gap 12 (6-14) Blood Urea Nitrogen 24 mg/dL (8-26) Creatinine 1.2 mg/dL (0.7-1.3) Estimated GFR (Cockcroft-Gault) 75.0 BUN/Creatinine Ratio 20 (6-20) Glucose Level 239 mg/dL (70-99) H Calcium Level 8.4 mg/dL (8.5-10.1) L Total Bilirubin 0.3 mg/dL (0.2-1.0) Aspartate Amino Transferase (AST) 17 U/L (15-37) Alanine Aminotransferase (ALT) 51 U/L (16-63) Alkaline Phosphatase 66 U/L (46-116) Total Protein 7.0 g/dL (6.4-8.2) Albumin 3.4 g/dL (3.4-5.0) Albumin/Globulin Ratio 0.9 (1.0-1.7) L Laboratory Tests 11/27/18 04:30 Laboratory Tests 11/27/18 04:30 Meds Current Medications Medications (Trade) Dose Ordered Sig/Logan Route PRN Reason Start Time Stop Time Status Last Admin Dose Admin Cetirizine HCl (ZyrTEC) 10 mg DAILY PO 11/26/18 12:00 11/27/18 08:16 Dextrose/Sodium Chloride 1,000 ml @ 75 mls/hr [id number] IV 11/26/18 11:00 11/26/18 19:34 DC 11/26/18 11:15 Insulin Human Lispro (HumaLOG) 0-8 UNITS BIDBFRMEAL SQ 11/26/18 11:30 11/27/18 09:04 DC 11/27/18 08:19 Methylprednisolone Sodium Succinate (SOLU-Medrol 125MG VIAL) 100 mg Q6HRS IV 11/26/18 12:15 11/27/18 06:01 Famotidine (Pepcid Vial) 20 mg BID IVP 11/26/18 21:00 11/27/18 08:17 Sodium Chloride 1,000 ml @ 75 mls/hr [id number] IV 11/26/18 21:00 11/27/18 09:24 DC 11/27/18 08:19 Assessment Assessment 1. Acute respiratory failure. The patient is intubated. 2. Acute angioedema, etiology not clear. The patient is supposed to be on lisinopril 10 mg daily and Lipitor 20 mg daily at bedtime and he has also been prescribed Singulair and Flonase previously for allergies. I am not sure what he has taken or currently taking. 3. Hypertension. 4. Hyperlipidemia. 5. Noncompliance. 6. History of diverticulosis. 7. Prediabetes PLAN: Condition and treatment were extensively discussed with the patient and the patient's family. The patient is sedated at this time. Consultation has been obtained with Dr. Winchester and we will see when he can be taken off the sedation and when he can be extubated. We will continue Solu-Medrol 100 mg IV q. 6 hours for now. Check labs in a.m. The patient will need an EpiPen on discharge and likely follow up with the seafood packer. For details, please refer to the orders. The patient has been admitted to Intensive Care Unit. Angioedema- patient still has some swelling. Continue IV Solu-Medrol. Add potassium chloride to the IV fluids. Hyperglycemia- increase sliding scale to 3 times a day. Patient also has prediabetes. Add metformin. Acute respiratory failure- and tinea mechanical ventilation. Continue to keep him nothing by mouth except for meds. Extubate today or tomorrow when it is okay with Dr. Winchester. Condition treatment options discussed with the family. Plan Plan For more details regarding further plans, please refer to the orders. MAYELA ALLRED MD Nov 27, 2018 09:34
[2018-11-27 09:50] LABS: BASE EXCESS ABG 0 mmol/L (-3-3); HCO3 ABG 25 mmol/L (21-28); PCO2 ABG 44 mmHg (35-46); PO2 ABG 83 mmHg (65-108); SAT O2 ABG 97 % (92-99)
[2018-11-27 09:52] LABS: FIO2 ABG 40
--- NOTE | 2018-11-27 10:53 | PDOC ---
PULMONARY PROGRESS NOTES Subjective PT SEDATED ON VENT Vitals Vital Signs Date Time Temp Pulse Resp B/P (MAP) Pulse Ox O2 Delivery O2 Flow Rate FiO2 11/27/18 08:00 95 Ventilator 11/27/18 07:00 98.9 97 18 145/54 (84) 98.9 Lungs: Clear Cardiovascular: S1, S2 Abdomen: Soft Skin: Warm Labs Laboratory Tests Test 11/25/18 20:03 11/25/18 20:48 11/25/18 21:05 11/26/18 04:19 White Blood Count 7.5 x10^3/uL (4.0-11.0) 7.8 x10^3/uL (4.0-11.0) Red Blood Count 5.98 x10^6/uL (4.30-5.70) 5.83 x10^6/uL (4.30-5.70) Hemoglobin 16.4 g/dL (13.0-17.5) 16.1 g/dL (13.0-17.5) Hematocrit 49.3 % (39.0-53.0) 48.1 % (39.0-53.0) Mean Corpuscular Volume 83 fL (79-100) 83 fL (79-100) Mean Corpuscular Hemoglobin 27 pg (25-35) 28 pg (25-35) Mean Corpuscular Hemoglobin Concent 33 g/dL (31-37) 34 g/dL (31-37) Red Cell Distribution Width 15.0 % (11.5-14.5) 14.7 % (11.5-14.5) Platelet Count 258 x10^3/uL (140-400) 248 x10^3/uL (140-400) Neutrophils (%) (Auto) 50 % (31-73) 87 % (31-73) Lymphocytes (%) (Auto) 35 % (24-48) 11 % (24-48) Monocytes (%) (Auto) 12 % (0-9) 1 % (0-9) Eosinophils (%) (Auto) 2 % (0-3) 0 % (0-3) Basophils (%) (Auto) 1 % (0-3) 0 % (0-3) Neutrophils # (Auto) 3.8 x10^3/uL (1.8-7.7) 6.8 x10^3/uL (1.8-7.7) Lymphocytes # (Auto) 2.7 x10^3/uL (1.0-4.8) 0.9 x10^3/uL (1.0-4.8) Monocytes # (Auto) 0.9 x10^3/uL (0.0-1.1) 0.1 x10^3/uL (0.0-1.1) Eosinophils # (Auto) 0.2 x10^3/uL (0.0-0.7) 0.0 x10^3/uL (0.0-0.7) Basophils # (Auto) 0.0 x10^3/uL (0.0-0.2) 0.0 x10^3/uL (0.0-0.2) O2 Saturation 98 % (92-99) Arterial Blood pH 7.24 (7.35-7.45) Arterial Blood pCO2 at Patient Temp 49 mmHg (35-46) Arterial Blood pO2 at Patient Temp 133 mmHg (65-108) Arterial Blood HCO3 21 mmol/L (21-28) Arterial Blood Base Excess -7 mmol/L (-3-3) FiO2 50 Sodium Level 141 mmol/L (136-145) 139 mmol/L (136-145) Potassium Level 3.5 mmol/L (3.5-5.1) 4.0 mmol/L (3.5-5.1) Chloride Level 105 mmol/L (98-107) 102 mmol/L (98-107) Carbon Dioxide Level 25 mmol/L (21-32) 24 mmol/L (21-32) Anion Gap 11 (6-14) 13 (6-14) Blood Urea Nitrogen 17 mg/dL (8-26) 17 mg/dL (8-26) Creatinine 1.0 mg/dL (0.7-1.3) 1.2 mg/dL (0.7-1.3) Estimated GFR (Cockcroft-Gault) 92.5 75.0 BUN/Creatinine Ratio 17 (6-20) 14 (6-20) Glucose Level 175 mg/dL (70-99) 198 mg/dL (70-99) Calcium Level 8.3 mg/dL (8.5-10.1) 9.1 mg/dL (8.5-10.1) Total Bilirubin 0.4 mg/dL (0.2-1.0) 0.4 mg/dL (0.2-1.0) Aspartate Amino Transf (AST/SGOT) 68 U/L (15-37) 54 U/L (15-37) Alanine Aminotransferase (ALT/SGPT) 68 U/L (16-63) 80 U/L (16-63) Alkaline Phosphatase 71 U/L (46-116) 75 U/L (46-116) Total Protein 6.7 g/dL (6.4-8.2) 7.6 g/dL (6.4-8.2) Albumin 3.4 g/dL (3.4-5.0) 3.8 g/dL (3.4-5.0) Albumin/Globulin Ratio 1.0 (1.0-1.7) 1.0 (1.0-1.7) Segmented Neutrophils % 80 % (35-66) Band Neutrophils % 7 % (0-9) Lymphocytes % 10 % (24-48) Atypical Lymphocytes % (Manual) 1 % (0-0) Monocytes % 2 % (0-10) Platelet Estimate Adequate (ADEQUATE) Hepatitis A IgM Antibody Nonreactive (Nonreactive) Hepatitis B Surface Antigen Nonreactive (Nonreactive) Hepatitis B Core IgM Antibody Nonreactive (Nonreactive) Hepatitis C IgG Antibody Nonreactive (Nonreactive) Test 11/26/18 07:20 11/26/18 16:51 11/26/18 21:02 11/27/18 04:30 O2 Saturation 96 % (92-99) Arterial Blood pH 7.37 (7.35-7.45) Arterial Blood pCO2 at Patient Temp 43 mmHg (35-46) Arterial Blood pO2 at Patient Temp 85 mmHg (65-108) Arterial Blood HCO3 24 mmol/L (21-28) Arterial Blood Base Excess -1 mmol/L (-3-3) FiO2 40 Glucose (Fingerstick) 234 mg/dL (70-99) 208 mg/dL (70-99) White Blood Count 19.0 x10^3/uL (4.0-11.0) Red Blood Count 5.77 x10^6/uL (4.30-5.70) Hemoglobin 15.7 g/dL (13.0-17.5) Hematocrit 47.8 % (39.0-53.0) Mean Corpuscular Volume 83 fL (79-100) Mean Corpuscular Hemoglobin 27 pg (25-35) Mean Corpuscular Hemoglobin Concent 33 g/dL (31-37) Red Cell Distribution Width 14.6 % (11.5-14.5) Platelet Count 248 x10^3/uL (140-400) Neutrophils (%) (Auto) 89 % (31-73) Lymphocytes (%) (Auto) 7 % (24-48) Monocytes (%) (Auto) 4 % (0-9) Eosinophils (%) (Auto) 0 % (0-3) Basophils (%) (Auto) 0 % (0-3) Neutrophils # (Auto) 16.9 x10^3/uL (1.8-7.7) Lymphocytes # (Auto) 1.4 x10^3/uL (1.0-4.8) Monocytes # (Auto) 0.7 x10^3/uL (0.0-1.1) Eosinophils # (Auto) 0.0 x10^3/uL (0.0-0.7) Basophils # (Auto) 0.0 x10^3/uL (0.0-0.2) Sodium Level 138 mmol/L (136-145) Potassium Level 3.8 mmol/L (3.5-5.1) Chloride Level 103 mmol/L (98-107) Carbon Dioxide Level 23 mmol/L (21-32) Anion Gap 12 (6-14) Blood Urea Nitrogen 24 mg/dL (8-26) Creatinine 1.2 mg/dL (0.7-1.3) Estimated GFR (Cockcroft-Gault) 75.0 BUN/Creatinine Ratio 20 (6-20) Glucose Level 239 mg/dL (70-99) Calcium Level 8.4 mg/dL (8.5-10.1) Total Bilirubin 0.3 mg/dL (0.2-1.0) Aspartate Amino Transf (AST/SGOT) 17 U/L (15-37) Alanine Aminotransferase (ALT/SGPT) 51 U/L (16-63) Alkaline Phosphatase 66 U/L (46-116) Total Protein 7.0 g/dL (6.4-8.2) Albumin 3.4 g/dL (3.4-5.0) Albumin/Globulin Ratio 0.9 (1.0-1.7) Test 11/27/18 08:10 11/27/18 09:45 Glucose (Fingerstick) 213 mg/dL (70-99) O2 Saturation 97 % (92-99) Arterial Blood pH 7.38 (7.35-7.45) Arterial Blood pCO2 at Patient Temp 44 mmHg (35-46) Arterial Blood pO2 at Patient Temp 83 mmHg (65-108) Arterial Blood HCO3 25 mmol/L (21-28) Arterial Blood Base Excess 0 mmol/L (-3-3) FiO2 40 Laboratory Tests Test 11/26/18 16:51 11/26/18 21:02 11/27/18 04:30 11/27/18 08:10 Glucose (Fingerstick) 234 mg/dL (70-99) 208 mg/dL (70-99) 213 mg/dL (70-99) White Blood Count 19.0 x10^3/uL (4.0-11.0) Red Blood Count 5.77 x10^6/uL (4.30-5.70) Hemoglobin 15.7 g/dL (13.0-17.5) Hematocrit 47.8 % (39.0-53.0) Mean Corpuscular Volume 83 fL (79-100) Mean Corpuscular Hemoglobin 27 pg (25-35) Mean Corpuscular Hemoglobin Concent 33 g/dL (31-37) Red Cell Distribution Width 14.6 % (11.5-14.5) Platelet Count 248 x10^3/uL (140-400) Neutrophils (%) (Auto) 89 % (31-73) Lymphocytes (%) (Auto) 7 % (24-48) Monocytes (%) (Auto) 4 % (0-9) Eosinophils (%) (Auto) 0 % (0-3) Basophils (%) (Auto) 0 % (0-3) Neutrophils # (Auto) 16.9 x10^3/uL (1.8-7.7) Lymphocytes # (Auto) 1.4 x10^3/uL (1.0-4.8) Monocytes # (Auto) 0.7 x10^3/uL (0.0-1.1) Eosinophils # (Auto) 0.0 x10^3/uL (0.0-0.7) Basophils # (Auto) 0.0 x10^3/uL (0.0-0.2) Sodium Level 138 mmol/L (136-145) Potassium Level 3.8 mmol/L (3.5-5.1) Chloride Level 103 mmol/L (98-107) Carbon Dioxide Level 23 mmol/L (21-32) Anion Gap 12 (6-14) Blood Urea Nitrogen 24 mg/dL (8-26) Creatinine 1.2 mg/dL (0.7-1.3) Estimated GFR (Cockcroft-Gault) 75.0 BUN/Creatinine Ratio 20 (6-20) Glucose Level 239 mg/dL (70-99) Calcium Level 8.4 mg/dL (8.5-10.1) Total Bilirubin 0.3 mg/dL (0.2-1.0) Aspartate Amino Transf (AST/SGOT) 17 U/L (15-37) Alanine Aminotransferase (ALT/SGPT) 51 U/L (16-63) Alkaline Phosphatase 66 U/L (46-116) Total Protein 7.0 g/dL (6.4-8.2) Albumin 3.4 g/dL (3.4-5.0) Albumin/Globulin Ratio 0.9 (1.0-1.7) Test 11/27/18 09:45 O2 Saturation 97 % (92-99) Arterial Blood pH 7.38 (7.35-7.45) Arterial Blood pCO2 at Patient Temp 44 mmHg (35-46) Arterial Blood pO2 at Patient Temp 83 mmHg (65-108) Arterial Blood HCO3 25 mmol/L (21-28) Arterial Blood Base Excess 0 mmol/L (-3-3) FiO2 40 Medications Active Scripts Medications Dose Route/Sig Max Daily Dose Days Date Category Amoxicillin 500 Mg Capsule 2 Cap PO BID 04/19/17 Rx Impression . IMPRESSION: 1. Acute respiratory failure secondary to angioedema. 2. ALICIA inhibitor related angioedema. 3. Abnormal x-ray revealing acute pulmonary edema. 4. Hypertension. Impression: Left basilar atelectasis. Decreased left basilar retrocardiac aeration in the interval. Plan . DEFLATED CUFF NOT MUCH LEAKGE WILL NEED TO REMAIN INTUBATED 1. We will continue current support. The patient's tongue continues to be swollen. 2. D/W FAMILY 3. Continue current meds. 4. DVT and GI prophylaxis. GAVIN CASTRO MD Nov 27, 2018 10:53
[2018-11-27] MEDS: metFORMIN 500 MG TABLET PO SCH ×2 (12:18→18:00)
[2018-11-27] MEDS: IPRATRPIUM/ALBUTEROL 0.5/2.5MG 3 ML NEBU. NEB SCH ×2 (16:11→19:28)
[2018-11-27] MEDS: hydrALAZINE 20 MG/ML VIAL. IVP PRN (18:05)
[2018-11-27] MEDS: MONTELUKAST SODIUM 10 MG TABLET. PO SCH (20:37)
[2018-11-28] VITALS (24 sets, daily range): BP systolic 128–185; BP diastolic 51–102
[2018-11-28 00:07] LABS: HEMOGLOBIN A1C 6.4 % (4.8-5.6)
[2018-11-28] MEDS: PROPOFOL 100 ML IV PRN ×7 (03:24→21:08)
[2018-11-28] MEDS: diphenhydrAMINE 50 MG/ML VIAL IV SCH ×5 (03:33→21:07)
[2018-11-28 04:38] LABS: BASO % 0 % (0-3); EOS % 0 % (0-3); HEMATOCRIT 44.9 % (39.0-53.0); HEMOGLOBIN 14.8 g/dL (13.0-17.5); LYMPH # 1.3 x10^3/uL (1.0-4.8); LYMPH % 7 % (24-48); MEAN CORPUSCULAR HEMOGLOBIN 27 pg (25-35); MEAN CORPUSCULAR HGB CONC 33 g/dL (31-37); MEAN CORPUSCULAR VOLUME 83 fL (79-100); MONO # 0.7 x10^3/uL (0.0-1.1); MONO % 4 % (0-9); NEUT # 15.8 x10^3/uL (1.8-7.7); NEUT % 89 % (31-73); PLATELET COUNT 231 x10^3/uL (140-400); WHITE BLOOD COUNT 17.8 x10^3/uL (4.0-11.0)
[2018-11-28 05:07] LABS: ALBUMIN/GLOBULIN RATIO 0.9 (1.0-1.7); GFR 92.5; POTASSIUM 4.3 mmol/L (3.5-5.1); TOTAL BILIRUBIN 0.4 mg/dL (0.2-1.0); TOTAL PROTEIN 6.5 g/dL (6.4-8.2)
[2018-11-28] MEDS: methylPREDNISolone SOD SUCC PF 125 MG/2 ML VIAL. IV SCH ×3 (06:25→17:29)
[2018-11-28] MEDS: HEPARIN for SUB-Q USE 5,000 UNIT/ML VIAL. SQ SCH ×3 (06:25→21:13)
--- NOTE | 2018-11-28 06:41 | PDOC ---
PULMONARY PROGRESS NOTES Subjective PT SEDATED ON VENT, on propofol, minimal ett secretion Vitals Vital Signs Date Time Temp Pulse Resp B/P (MAP) Pulse Ox O2 Delivery O2 Flow Rate FiO2 11/28/18 06:00 88 18 165/74 (104) 97 Ventilator 11/28/18 04:00 98.9 98.9 Comments ros as mentioned as above discussed w rn, other sys otherwise neg sedated on vent HEENT: Other (nc at perrl nose clear orally intubated neck no lad no thyromegaly) Lungs: Clear Cardiovascular: S1, S2 Abdomen: Soft, Non-tender, Other (no mass) Extremities: No Edema Skin: Warm Labs Laboratory Tests Test 11/26/18 07:20 11/26/18 16:51 11/26/18 21:02 11/27/18 04:30 O2 Saturation 96 % (92-99) Arterial Blood pH 7.37 (7.35-7.45) Arterial Blood pCO2 at Patient Temp 43 mmHg (35-46) Arterial Blood pO2 at Patient Temp 85 mmHg (65-108) Arterial Blood HCO3 24 mmol/L (21-28) Arterial Blood Base Excess -1 mmol/L (-3-3) FiO2 40 Glucose (Fingerstick) 234 mg/dL (70-99) 208 mg/dL (70-99) White Blood Count 19.0 x10^3/uL (4.0-11.0) Red Blood Count 5.77 x10^6/uL (4.30-5.70) Hemoglobin 15.7 g/dL (13.0-17.5) Hematocrit 47.8 % (39.0-53.0) Mean Corpuscular Volume 83 fL (79-100) Mean Corpuscular Hemoglobin 27 pg (25-35) Mean Corpuscular Hemoglobin Concent 33 g/dL (31-37) Red Cell Distribution Width 14.6 % (11.5-14.5) Platelet Count 248 x10^3/uL (140-400) Neutrophils (%) (Auto) 89 % (31-73) Lymphocytes (%) (Auto) 7 % (24-48) Monocytes (%) (Auto) 4 % (0-9) Eosinophils (%) (Auto) 0 % (0-3) Basophils (%) (Auto) 0 % (0-3) Neutrophils # (Auto) 16.9 x10^3/uL (1.8-7.7) Lymphocytes # (Auto) 1.4 x10^3/uL (1.0-4.8) Monocytes # (Auto) 0.7 x10^3/uL (0.0-1.1) Eosinophils # (Auto) 0.0 x10^3/uL (0.0-0.7) Basophils # (Auto) 0.0 x10^3/uL (0.0-0.2) Sodium Level 138 mmol/L (136-145) Potassium Level 3.8 mmol/L (3.5-5.1) Chloride Level 103 mmol/L (98-107) Carbon Dioxide Level 23 mmol/L (21-32) Anion Gap 12 (6-14) Blood Urea Nitrogen 24 mg/dL (8-26) Creatinine 1.2 mg/dL (0.7-1.3) Estimated GFR (Cockcroft-Gault) 75.0 BUN/Creatinine Ratio 20 (6-20) Glucose Level 239 mg/dL (70-99) Hemoglobin A1c 6.4 % (4.8-5.6) Calcium Level 8.4 mg/dL (8.5-10.1) Total Bilirubin 0.3 mg/dL (0.2-1.0) Aspartate Amino Transf (AST/SGOT) 17 U/L (15-37) Alanine Aminotransferase (ALT/SGPT) 51 U/L (16-63) Alkaline Phosphatase 66 U/L (46-116) Total Protein 7.0 g/dL (6.4-8.2) Albumin 3.4 g/dL (3.4-5.0) Albumin/Globulin Ratio 0.9 (1.0-1.7) Test 11/27/18 08:10 11/27/18 09:45 11/27/18 12:20 11/27/18 16:39 Glucose (Fingerstick) 213 mg/dL (70-99) 239 mg/dL (70-99) 215 mg/dL (70-99) O2 Saturation 97 % (92-99) Arterial Blood pH 7.38 (7.35-7.45) Arterial Blood pCO2 at Patient Temp 44 mmHg (35-46) Arterial Blood pO2 at Patient Temp 83 mmHg (65-108) Arterial Blood HCO3 25 mmol/L (21-28) Arterial Blood Base Excess 0 mmol/L (-3-3) FiO2 40 Test 11/28/18 04:00 White Blood Count 17.8 x10^3/uL (4.0-11.0) Red Blood Count 5.40 x10^6/uL (4.30-5.70) Hemoglobin 14.8 g/dL (13.0-17.5) Hematocrit 44.9 % (39.0-53.0) Mean Corpuscular Volume 83 fL (79-100) Mean Corpuscular Hemoglobin 27 pg (25-35) Mean Corpuscular Hemoglobin Concent 33 g/dL (31-37) Red Cell Distribution Width 15.0 % (11.5-14.5) Platelet Count 231 x10^3/uL (140-400) Neutrophils (%) (Auto) 89 % (31-73) Lymphocytes (%) (Auto) 7 % (24-48) Monocytes (%) (Auto) 4 % (0-9) Eosinophils (%) (Auto) 0 % (0-3) Basophils (%) (Auto) 0 % (0-3) Neutrophils # (Auto) 15.8 x10^3/uL (1.8-7.7) Lymphocytes # (Auto) 1.3 x10^3/uL (1.0-4.8) Monocytes # (Auto) 0.7 x10^3/uL (0.0-1.1) Eosinophils # (Auto) 0.0 x10^3/uL (0.0-0.7) Basophils # (Auto) 0.0 x10^3/uL (0.0-0.2) Sodium Level 140 mmol/L (136-145) Potassium Level 4.3 mmol/L (3.5-5.1) Chloride Level 105 mmol/L (98-107) Carbon Dioxide Level 25 mmol/L (21-32) Anion Gap 10 (6-14) Blood Urea Nitrogen 21 mg/dL (8-26) Creatinine 1.0 mg/dL (0.7-1.3) Estimated GFR (Cockcroft-Gault) 92.5 BUN/Creatinine Ratio 21 (6-20) Glucose Level 266 mg/dL (70-99) Calcium Level 8.0 mg/dL (8.5-10.1) Total Bilirubin 0.4 mg/dL (0.2-1.0) Aspartate Amino Transf (AST/SGOT) 19 U/L (15-37) Alanine Aminotransferase (ALT/SGPT) 39 U/L (16-63) Alkaline Phosphatase 59 U/L (46-116) Total Protein 6.5 g/dL (6.4-8.2) Albumin 3.0 g/dL (3.4-5.0) Albumin/Globulin Ratio 0.9 (1.0-1.7) Laboratory Tests Test 11/27/18 08:10 11/27/18 09:45 11/27/18 12:20 11/27/18 16:39 Glucose (Fingerstick) 213 mg/dL (70-99) 239 mg/dL (70-99) 215 mg/dL (70-99) O2 Saturation 97 % (92-99) Arterial Blood pH 7.38 (7.35-7.45) Arterial Blood pCO2 at Patient Temp 44 mmHg (35-46) Arterial Blood pO2 at Patient Temp 83 mmHg (65-108) Arterial Blood HCO3 25 mmol/L (21-28) Arterial Blood Base Excess 0 mmol/L (-3-3) FiO2 40 Test 11/28/18 04:00 White Blood Count 17.8 x10^3/uL (4.0-11.0) Red Blood Count 5.40 x10^6/uL (4.30-5.70) Hemoglobin 14.8 g/dL (13.0-17.5) Hematocrit 44.9 % (39.0-53.0) Mean Corpuscular Volume 83 fL (79-100) Mean Corpuscular Hemoglobin 27 pg (25-35) Mean Corpuscular Hemoglobin Concent 33 g/dL (31-37) Red Cell Distribution Width 15.0 % (11.5-14.5) Platelet Count 231 x10^3/uL (140-400) Neutrophils (%) (Auto) 89 % (31-73) Lymphocytes (%) (Auto) 7 % (24-48) Monocytes (%) (Auto) 4 % (0-9) Eosinophils (%) (Auto) 0 % (0-3) Basophils (%) (Auto) 0 % (0-3) Neutrophils # (Auto) 15.8 x10^3/uL (1.8-7.7) Lymphocytes # (Auto) 1.3 x10^3/uL (1.0-4.8) Monocytes # (Auto) 0.7 x10^3/uL (0.0-1.1) Eosinophils # (Auto) 0.0 x10^3/uL (0.0-0.7) Basophils # (Auto) 0.0 x10^3/uL (0.0-0.2) Sodium Level 140 mmol/L (136-145) Potassium Level 4.3 mmol/L (3.5-5.1) Chloride Level 105 mmol/L (98-107) Carbon Dioxide Level 25 mmol/L (21-32) Anion Gap 10 (6-14) Blood Urea Nitrogen 21 mg/dL (8-26) Creatinine 1.0 mg/dL (0.7-1.3) Estimated GFR (Cockcroft-Gault) 92.5 BUN/Creatinine Ratio 21 (6-20) Glucose Level 266 mg/dL (70-99) Calcium Level 8.0 mg/dL (8.5-10.1) Total Bilirubin 0.4 mg/dL (0.2-1.0) Aspartate Amino Transf (AST/SGOT) 19 U/L (15-37) Alanine Aminotransferase (ALT/SGPT) 39 U/L (16-63) Alkaline Phosphatase 59 U/L (46-116) Total Protein 6.5 g/dL (6.4-8.2) Albumin 3.0 g/dL (3.4-5.0) Albumin/Globulin Ratio 0.9 (1.0-1.7) Medications Active Scripts Medications Dose Route/Sig Max Daily Dose Days Date Category Amoxicillin 500 Mg Capsule 2 Cap PO BID 04/19/17 Rx Comments cxr reviewed l atelectasis ett ok Impression . IMPRESSION: 1. Acute respiratory failure secondary to angioedema. 2. ALICIA inhibitor related angioedema. 3. Abnormal x-ray revealing acute pulmonary edema. 4. Hypertension. Plan . 1. cont vent support, setting reviewed, will do upper airway test, if ok, will do sbt 2. elevate hob 3. Continue current meds. 4. DVT and GI prophylaxis. discussed w HALLEY Blackwell MD Nov 28, 2018 06:41
[2018-11-28] MEDS: IPRATRPIUM/ALBUTEROL 0.5/2.5MG 3 ML NEBU. NEB SCH ×4 (07:30→20:35)
[2018-11-28 07:47] LABS: BASE EXCESS ABG 1 mmol/L (-3-3); HCO3 ABG 26 mmol/L (21-28); PCO2 ABG 44 mmHg (35-46); PO2 ABG 105 mmHg (65-108); SAT O2 ABG 98 % (92-99)
[2018-11-28 07:49] LABS: FIO2 ABG 40
[2018-11-28] MEDS: CETIRIZINE HCL 10 MG TABLET. PO SCH (08:30)
[2018-11-28] MEDS: metFORMIN 500 MG TABLET PO SCH ×2 (08:30→17:29)
[2018-11-28] MEDS: FAMOTIDINE 20 MG/2 ML VIAL IVP SCH ×2 (08:30→21:07)
[2018-11-28] MEDS: INSULIN LISPRO 300 UNITS/3 ML VIAL. SQ SCH ×3 (08:36→17:28)
[2018-11-28] MEDS: hydrALAZINE 20 MG/ML VIAL. IVP PRN (08:40)
--- NOTE | 2018-11-28 10:38 | RAD ---
Exam performed: One view chest HISTORY: Respiratory failure. DATE OF SERVICE: 11/28/2018. COMPARISON: Single view chest from 11/27/2018. Single AP upright portable view chest findings: Endotracheal tube and feeding tube are unchanged. Heart size and mediastinal silhouette is stable. Ongoing linear opacity medial right lung base. No pleural effusion or pneumothorax seen IMPRESSION: No interval change. Electronically signed by: Vivienne Mccallum MD (11/28/2018 10:35 AM) [facility]
[2018-11-28] MEDS: fentaNYL PF VIAL 100 MCG/2 ML VIAL IV PRN (12:03)
--- NOTE | 2018-11-28 12:30 | NUR ---
Upper airway test completed by Ruben BARBOSA, no airleak heard around deflated cuff.
--- NOTE | 2018-11-28 12:46 | PDOC ---
PROGRESS NOTES Subjective Subjective seen in ICU ,pt on vent ,awake Objective Objective Vital Signs Date Time Temp Pulse Resp B/P (MAP) Pulse Ox O2 Delivery O2 Flow Rate FiO2 11/28/18 12:03 19 97 11/28/18 11:06 Ventilator 11/28/18 08:40 92 173/71 11/28/18 04:00 98.9 98.9 Intake and Output 11/28/18 07:00 Intake Total 3300 ml Output Total 2135 ml Balance 1165 ml Intake IV Total 2668 ml Tube Feeding 232 ml Other 400 ml Output Urine Total 2135 ml Physical Exam Abdomen: Soft Heart: Regular rate, Normal S1, Normal S2 Extremities: No clubbing General: Alert HEENT: Atraumatic Lungs: Clear to auscultation Neck: Supple Skin: No breakdown Diagnosis Problem List Problems Medical Problems: (1) Angio-edema Status: Acute (2) Dyspnea Status: Acute (3) Pulmonary edema Status: Acute (4) Trouble swallowing Status: Acute (5) Uvular edema Status: Acute Assessment Assessment 1. Acute respiratory failure. The patient is intubated. 2. Acute angioedema, may be drug related ,Lisinopril 3. Hypertension. 4. Hyperlipidemia. 5. Noncompliance. 6. History of diverticulosis. 7. Prediabetes PLAN: went weaning today ? may be extubated later today iv solumedrol. labs reviewed. spoke with family at bed side. wbc 17 due to steroids . Plan Plan of Care Problems Medical Problems: (1) Angio-edema Status: Acute (2) Dyspnea Status: Acute (3) Pulmonary edema Status: Acute (4) Trouble swallowing Status: Acute (5) Uvular edema Status: Acute Comment Review of Relevant I have reviewed the following items lenora (where applicable) has been applied. Labs Laboratory Tests Test 11/27/18 16:39 11/28/18 04:00 11/28/18 07:40 11/28/18 08:34 Glucose (Fingerstick) 215 mg/dL (70-99) 256 mg/dL (70-99) White Blood Count 17.8 x10^3/uL (4.0-11.0) Red Blood Count 5.40 x10^6/uL (4.30-5.70) Hemoglobin 14.8 g/dL (13.0-17.5) Hematocrit 44.9 % (39.0-53.0) Mean Corpuscular Volume 83 fL (79-100) Mean Corpuscular Hemoglobin 27 pg (25-35) Mean Corpuscular Hemoglobin Concent 33 g/dL (31-37) Red Cell Distribution Width 15.0 % (11.5-14.5) Platelet Count 231 x10^3/uL (140-400) Neutrophils (%) (Auto) 89 % (31-73) Lymphocytes (%) (Auto) 7 % (24-48) Monocytes (%) (Auto) 4 % (0-9) Eosinophils (%) (Auto) 0 % (0-3) Basophils (%) (Auto) 0 % (0-3) Neutrophils # (Auto) 15.8 x10^3/uL (1.8-7.7) Lymphocytes # (Auto) 1.3 x10^3/uL (1.0-4.8) Monocytes # (Auto) 0.7 x10^3/uL (0.0-1.1) Eosinophils # (Auto) 0.0 x10^3/uL (0.0-0.7) Basophils # (Auto) 0.0 x10^3/uL (0.0-0.2) Sodium Level 140 mmol/L (136-145) Potassium Level 4.3 mmol/L (3.5-5.1) Chloride Level 105 mmol/L (98-107) Carbon Dioxide Level 25 mmol/L (21-32) Anion Gap 10 (6-14) Blood Urea Nitrogen 21 mg/dL (8-26) Creatinine 1.0 mg/dL (0.7-1.3) Estimated GFR (Cockcroft-Gault) 92.5 BUN/Creatinine Ratio 21 (6-20) Glucose Level 266 mg/dL (70-99) Calcium Level 8.0 mg/dL (8.5-10.1) Total Bilirubin 0.4 mg/dL (0.2-1.0) Aspartate Amino Transf (AST/SGOT) 19 U/L (15-37) Alanine Aminotransferase (ALT/SGPT) 39 U/L (16-63) Alkaline Phosphatase 59 U/L (46-116) Total Protein 6.5 g/dL (6.4-8.2) Albumin 3.0 g/dL (3.4-5.0) Albumin/Globulin Ratio 0.9 (1.0-1.7) O2 Saturation 98 % (92-99) Arterial Blood pH 7.40 (7.35-7.45) Arterial Blood pCO2 at Patient Temp 44 mmHg (35-46) Arterial Blood pO2 at Patient Temp 105 mmHg (65-108) Arterial Blood HCO3 26 mmol/L (21-28) Arterial Blood Base Excess 1 mmol/L (-3-3) FiO2 40 Test 11/28/18 11:58 Glucose (Fingerstick) 219 mg/dL (70-99) Medications Current Medications Albuterol/ Ipratropium (Duoneb) 3 ml RTQID NEB Last administered on 11/28/18at 11:06; Start 11/27/18 at 16:00 Vitals/I & O Vital Sign - Last 24 Hours 11/27/18 11/27/18 11/27/18 11/27/18 13:00 13:10 14:00 15:00 Pulse 108 110 110 Resp 19 22 20 B/P (MAP) 155/58 (90) 165/77 (106) 155/62 (93) Pulse Ox 96 96 96 96 O2 Delivery Ventilator Ventilator Ventilator Ventilator 11/27/18 11/27/18 11/27/18 11/27/18 16:00 16:00 16:12 17:00 Temp 99.6 99.6 Pulse 112 115 Resp 20 22 B/P (MAP) 156/61 (92) 146/62 (90) Pulse Ox 96 95 97 O2 Delivery Mechanical Ventilator Ventilator Ventilator Ventilator 11/27/18 11/27/18 11/27/18 11/27/18 18:00 18:05 18:06 19:00 Pulse 116 113 114 Resp 22 22 B/P (MAP) 184/67 (106) 184/67 175/61 (99) Pulse Ox 96 95 96 O2 Delivery Ventilator Ventilator Ventilator 11/27/18 11/27/18 11/27/18 11/27/18 19:28 20:00 20:00 20:43 Temp 100.0 100.0 Pulse 121 Resp 22 B/P (MAP) 176/77 (110) Pulse Ox 96 96 96 O2 Delivery Ventilator Mechanical Ventilator Ventilator Ventilator 11/27/18 11/27/18 11/27/18 11/27/18 21:00 22:00 23:00 23:35 Pulse 115 107 106 Resp 23 23 20 B/P (MAP) 183/77 (112) 158/69 (98) 161/64 (96) Pulse Ox 96 96 96 96 O2 Delivery Ventilator Ventilator Ventilator Ventilator 11/28/18 11/28/18 11/28/18 11/28/18 00:00 00:00 01:00 02:00 Temp 99.4 99.4 Pulse 102 96 96 Resp 18 18 18 B/P (MAP) 166/69 (101) 149/51 (83) 143/65 (91) Pulse Ox 96 96 96 O2 Delivery Mechanical Ventilator Ventilator Ventilator Ventilator 11/28/18 11/28/18 11/28/18 11/28/18 02:40 03:00 04:00 04:00 Temp 98.9 98.9 Pulse 94 93 Resp 18 18 B/P (MAP) 156/71 (99) 150/66 (94) Pulse Ox 97 96 97 O2 Delivery Ventilator Ventilator Mechanical Ventilator Ventilator 11/28/18 11/28/18 11/28/18 11/28/18 05:00 05:20 06:00 07:31 Pulse 90 88 Resp 18 18 B/P (MAP) 149/64 (92) 165/74 (104) Pulse Ox 97 97 97 97 O2 Delivery Ventilator Ventilator Ventilator Ventilator 11/28/18 11/28/18 11/28/18 08:40 11:06 12:03 Pulse 92 Resp 19 B/P (MAP) 173/71 Pulse Ox 97 97 O2 Delivery Ventilator Intake and Output 11/27/18 11/27/18 11/28/18 15:00 23:00 07:00 Intake Total 613 ml 813 ml 1874 ml Output Total 635 ml 815 ml 685 ml Balance -22 ml -2 ml 1189 ml IGLESIA HENDRIX MD Nov 28, 2018 12:46
[2018-11-28] MEDS ORDERED: SODIUM BICARBONATE VIAL 150 MEQ in IV DEXTROSE 5% 1,000 ML IV SCH (15:00)
[2018-11-28] MEDS: MONTELUKAST SODIUM 10 MG TABLET. PO SCH (21:08)
[2018-11-29] VITALS (24 sets, daily range): BP systolic 132–189; BP diastolic 60–93
[2018-11-29] MEDS: PROPOFOL 100 ML IV PRN ×8 (00:14→21:54)
[2018-11-29] MEDS: methylPREDNISolone SOD SUCC PF 125 MG/2 ML VIAL. IV SCH ×4 (00:14→20:32)
[2018-11-29] MEDS: diphenhydrAMINE 50 MG/ML VIAL IV SCH ×6 (00:15→20:32)
--- NOTE | 2018-11-29 06:07 | PDOC ---
PULMONARY PROGRESS NOTES Subjective PT SEDATED ON VENT, on propofol, minimal ett secretion, didnt pass upper airway test yesterday Vitals Vital Signs Date Time Temp Pulse Resp B/P (MAP) Pulse Ox O2 Delivery O2 Flow Rate FiO2 11/29/18 05:00 71 18 148/68 (94) 97 Ventilator 11/29/18 04:00 98.6 98.6 Comments ros as mentioned as above discussed w rn, other sys otherwise neg sedated on vent HEENT: Other (nc at perrl nose clear orally intubated neck no lad no thyromegaly) Lungs: Clear Cardiovascular: S1, S2 Abdomen: Soft, Non-tender, Other (no mass) Extremities: No Edema Skin: Warm Labs Laboratory Tests Test 11/27/18 08:10 11/27/18 09:45 11/27/18 12:20 11/27/18 16:39 Glucose (Fingerstick) 213 mg/dL (70-99) 239 mg/dL (70-99) 215 mg/dL (70-99) O2 Saturation 97 % (92-99) Arterial Blood pH 7.38 (7.35-7.45) Arterial Blood pCO2 at Patient Temp 44 mmHg (35-46) Arterial Blood pO2 at Patient Temp 83 mmHg (65-108) Arterial Blood HCO3 25 mmol/L (21-28) Arterial Blood Base Excess 0 mmol/L (-3-3) FiO2 40 Test 11/28/18 04:00 11/28/18 07:40 11/28/18 08:34 11/28/18 11:58 White Blood Count 17.8 x10^3/uL (4.0-11.0) Red Blood Count 5.40 x10^6/uL (4.30-5.70) Hemoglobin 14.8 g/dL (13.0-17.5) Hematocrit 44.9 % (39.0-53.0) Mean Corpuscular Volume 83 fL (79-100) Mean Corpuscular Hemoglobin 27 pg (25-35) Mean Corpuscular Hemoglobin Concent 33 g/dL (31-37) Red Cell Distribution Width 15.0 % (11.5-14.5) Platelet Count 231 x10^3/uL (140-400) Neutrophils (%) (Auto) 89 % (31-73) Lymphocytes (%) (Auto) 7 % (24-48) Monocytes (%) (Auto) 4 % (0-9) Eosinophils (%) (Auto) 0 % (0-3) Basophils (%) (Auto) 0 % (0-3) Neutrophils # (Auto) 15.8 x10^3/uL (1.8-7.7) Lymphocytes # (Auto) 1.3 x10^3/uL (1.0-4.8) Monocytes # (Auto) 0.7 x10^3/uL (0.0-1.1) Eosinophils # (Auto) 0.0 x10^3/uL (0.0-0.7) Basophils # (Auto) 0.0 x10^3/uL (0.0-0.2) Sodium Level 140 mmol/L (136-145) Potassium Level 4.3 mmol/L (3.5-5.1) Chloride Level 105 mmol/L (98-107) Carbon Dioxide Level 25 mmol/L (21-32) Anion Gap 10 (6-14) Blood Urea Nitrogen 21 mg/dL (8-26) Creatinine 1.0 mg/dL (0.7-1.3) Estimated GFR (Cockcroft-Gault) 92.5 BUN/Creatinine Ratio 21 (6-20) Glucose Level 266 mg/dL (70-99) Calcium Level 8.0 mg/dL (8.5-10.1) Total Bilirubin 0.4 mg/dL (0.2-1.0) Aspartate Amino Transf (AST/SGOT) 19 U/L (15-37) Alanine Aminotransferase (ALT/SGPT) 39 U/L (16-63) Alkaline Phosphatase 59 U/L (46-116) Total Protein 6.5 g/dL (6.4-8.2) Albumin 3.0 g/dL (3.4-5.0) Albumin/Globulin Ratio 0.9 (1.0-1.7) O2 Saturation 98 % (92-99) Arterial Blood pH 7.40 (7.35-7.45) Arterial Blood pCO2 at Patient Temp 44 mmHg (35-46) Arterial Blood pO2 at Patient Temp 105 mmHg (65-108) Arterial Blood HCO3 26 mmol/L (21-28) Arterial Blood Base Excess 1 mmol/L (-3-3) FiO2 40 Glucose (Fingerstick) 256 mg/dL (70-99) 219 mg/dL (70-99) Test 11/28/18 17:27 Glucose (Fingerstick) 198 mg/dL (70-99) Laboratory Tests Test 11/28/18 07:40 11/28/18 08:34 11/28/18 11:58 11/28/18 17:27 O2 Saturation 98 % (92-99) Arterial Blood pH 7.40 (7.35-7.45) Arterial Blood pCO2 at Patient Temp 44 mmHg (35-46) Arterial Blood pO2 at Patient Temp 105 mmHg (65-108) Arterial Blood HCO3 26 mmol/L (21-28) Arterial Blood Base Excess 1 mmol/L (-3-3) FiO2 40 Glucose (Fingerstick) 256 mg/dL (70-99) 219 mg/dL (70-99) 198 mg/dL (70-99) Medications Active Scripts Medications Dose Route/Sig Max Daily Dose Days Date Category Amoxicillin 500 Mg Capsule 2 Cap PO BID 04/19/17 Rx Comments cxr reviewed inter opacities ett ok Impression . IMPRESSION: 1. Acute respiratory failure secondary to angioedema. 2. ALICIA inhibitor related angioedema. 3. Abnormal x-ray 4. Hypertension. Plan . 1. cont vent support, setting reviewed, will do upper airway test, if ok, will do sbt, I>>>O, will dc iv fluid, lasix 20 mg iv now 2. elevate hob 3. Continue current meds. 4. DVT and GI prophylaxis. 5. on propofol, check TG discussed w HALLEY Blackwell MD Nov 29, 2018 06:07
[2018-11-29] MEDS: HEPARIN for SUB-Q USE 5,000 UNIT/ML VIAL. SQ SCH ×3 (06:14→20:33)
[2018-11-29] MEDS ORDERED: FUROSEMIDE 20 MG/2 ML VIAL. IVP ONE (06:30)
--- NOTE | 2018-11-29 07:00 | RAD ---
Indication:Respiratory failure. TECHNIQUE:Portable AP chest X-ray COMPARISON: 11/28/2018 FINDINGS: Stable position of ET tube and NG tube. Heart is normal in size. Mild interstitial opacities. No focal consolidation. No pneumothorax or pleural effusion. Visualized bony thorax within normal limits. IMPRESSION: Mild interstitial opacities bilaterally may be secondary to atypical/viral infection or interstitial pulmonary edema. Electronically signed by: Jv Lopez DO (11/29/2018 6:57 AM) [id number]
[2018-11-29] MEDS: IPRATRPIUM/ALBUTEROL 0.5/2.5MG 3 ML NEBU. NEB SCH ×4 (07:31→20:19)
[2018-11-29 08:17] LABS: BASE EXCESS ABG 5 mmol/L (-3-3); HCO3 ABG 30 mmol/L (21-28); PCO2 ABG 44 mmHg (35-46); PO2 ABG 86 mmHg (65-108); SAT O2 ABG 97 % (92-99)
[2018-11-29] MEDS: CETIRIZINE HCL 10 MG TABLET. PO SCH (09:00)
[2018-11-29] MEDS: INSULIN LISPRO 300 UNITS/3 ML VIAL. SQ SCH ×3 (11:30→19:36)
[2018-11-29 12:07] LABS: FIO2 ABG 40
--- NOTE | 2018-11-29 12:31 | PDOC ---
PROGRESS NOTES Subjective Subjective seen in icu ,on vent Objective Objective Vital Signs Date Time Temp Pulse Resp B/P (MAP) Pulse Ox O2 Delivery O2 Flow Rate FiO2 11/29/18 10:00 74 18 161/76 (104) 96 Ventilator 11/29/18 08:00 98.7 98.7 Intake and Output 11/29/18 06:59 Intake Total 7088.7 ml Output Total 2750 ml Balance 4338.7 ml Intake Oral 0 ml IV Total 4068.7 ml Tube Feeding 1595 ml Other 1425 ml Output Urine Total 2750 ml Gastric Drainage Total 0 ml Physical Exam Physical Exam inyubated orally Abdomen: Soft Heart: Regular rate, Normal S1, Normal S2 Extremities: No clubbing General: Alert HEENT: Atraumatic Lungs: Clear to auscultation Neck: Supple Skin: No breakdown Diagnosis Problem List Problems Medical Problems: (1) Angio-edema Status: Acute (2) Dyspnea Status: Acute (3) Pulmonary edema Status: Acute (4) Trouble swallowing Status: Acute (5) Uvular edema Status: Acute Assessment Assessment 1. Acute respiratory failure. The patient is intubated. 2. Acute angio edema, may be drug related ,Lisinopril 3. Hypertension. 4. Hyperlipidemia. 5. Noncompliance. 6. History of diverticulosis. 7. Prediabetes PLAN: sliding scale went weaning today ? may be extubated later today or tomorrow iv solumedrol. labs reviewed. spoke with family at bed side. wbc 17 due to steroids GI and DVt prevention . Plan Plan of Care Problems Medical Problems: (1) Angio-edema Status: Acute (2) Dyspnea Status: Acute (3) Pulmonary edema Status: Acute (4) Trouble swallowing Status: Acute (5) Uvular edema Status: Acute Comment Review of Relevant I have reviewed the following items lenora (where applicable) has been applied. Labs Laboratory Tests Test 11/28/18 17:27 11/29/18 06:55 11/29/18 07:30 Glucose (Fingerstick) 198 mg/dL (70-99) Triglycerides Level 913 mg/dL (0-150) O2 Saturation 97 % (92-99) Arterial Blood pH 7.45 (7.35-7.45) Arterial Blood pCO2 at Patient Temp 44 mmHg (35-46) Arterial Blood pO2 at Patient Temp 86 mmHg (65-108) Arterial Blood HCO3 30 mmol/L (21-28) Arterial Blood Base Excess 5 mmol/L (-3-3) FiO2 40 Medications Current Medications Furosemide (Lasix) 20 mg 1X ONCE IVP Last administered on 11/29/18at 06:52; Start 11/29/18 at 06:30; Stop 11/29/18 at 06:31; Status DC Sodium Bicarbonate 150 meq/Dextrose 1,150 ml @ 125 mls/hr Q9H12M IV ; Start 11/28/18 at 15:00; Status Cancel Vitals/I & O Vital Sign - Last 24 Hours 11/28/18 11/28/18 11/28/18 11/28/18 12:33 13:00 13:53 14:00 Pulse 96 98 Resp 18 18 19 B/P (MAP) 144/70 (94) 141/66 (91) Pulse Ox 96 97 96 97 O2 Delivery Ventilator Ventilator Ventilator Ventilator 11/28/18 11/28/18 11/28/18 11/28/18 15:00 15:24 16:00 16:00 Temp 99.1 99.1 Pulse 100 92 Resp 21 17 B/P (MAP) 171/84 (113) 134/61 (85) Pulse Ox 96 98 97 O2 Delivery Ventilator Ventilator Mechanical Ventilator Ventilator 11/28/18 11/28/18 11/28/18 11/28/18 17:00 17:42 18:00 19:00 Pulse 89 97 91 Resp 18 21 18 B/P (MAP) 128/60 (82) 154/64 (94) 147/67 (93) Pulse Ox 96 96 98 96 O2 Delivery Ventilator Ventilator Ventilator Ventilator 11/28/18 11/28/18 11/28/18 11/28/18 20:00 20:00 20:35 21:00 Temp 99.2 99.2 Pulse 91 87 Resp 18 18 B/P (MAP) 158/69 (98) 147/62 (90) Pulse Ox 96 96 96 O2 Delivery Mechanical Ventilator Ventilator Ventilator Ventilator 11/28/18 11/28/18 11/28/18 11/29/18 21:42 22:00 23:00 00:00 Temp 98.8 98.8 Pulse 81 80 80 Resp 18 18 18 B/P (MAP) 145/66 (92) 151/69 (96) 157/75 (102) Pulse Ox 96 97 97 97 O2 Delivery Ventilator Ventilator Ventilator Ventilator 11/29/18 11/29/18 11/29/18 11/29/18 00:00 00:04 01:00 02:00 Pulse 73 73 Resp 18 18 B/P (MAP) 153/67 (95) 153/64 (93) Pulse Ox 96 97 97 O2 Delivery Mechanical Ventilator Ventilator Ventilator Ventilator 11/29/18 11/29/18 11/29/18 11/29/18 02:12 03:00 04:00 04:00 Temp 98.6 98.6 Pulse 71 70 Resp 18 18 B/P (MAP) 156/70 (98) 162/86 (111) Pulse Ox 97 97 96 O2 Delivery Ventilator Ventilator Ventilator Mechanical Ventilator 11/29/18 11/29/18 11/29/18 11/29/18 04:19 05:00 06:00 06:55 Pulse 71 75 Resp 18 18 18 B/P (MAP) 148/68 (94) 164/73 (103) Pulse Ox 97 97 97 97 O2 Delivery Ventilator Ventilator Ventilator Ventilator 11/29/18 11/29/18 11/29/18 11/29/18 07:00 07:32 08:00 08:00 Temp 98.7 98.7 Pulse 70 86 Resp 18 18 B/P (MAP) 159/74 (102) 185/93 (123) Pulse Ox 99 96 96 O2 Delivery Ventilator Ventilator Ventilator Mechanical Ventilator 11/29/18 11/29/18 09:00 10:00 Pulse 80 74 Resp 18 18 B/P (MAP) 189/80 (116) 161/76 (104) Pulse Ox 95 96 O2 Delivery Ventilator Ventilator Intake and Output 11/28/18 11/28/18 11/29/18 14:59 22:59 06:59 Intake Total 200 ml 4377 ml 2511.7 ml Output Total 1050 ml 850 ml 850 ml Balance -850 ml 3527 ml 1661.7 ml IGLESIA HENDRIX MD Nov 29, 2018 12:31
[2018-11-29] MEDS ORDERED: hydrALAZINE 20 MG/ML VIAL. IVP PRN (12:45)
[2018-11-29] MEDS: FAMOTIDINE 20 MG/2 ML VIAL IVP SCH ×2 (14:53→20:32)
[2018-11-29] MEDS: metFORMIN 500 MG TABLET PO SCH ×2 (14:54→19:19)
[2018-11-29] MEDS: MONTELUKAST SODIUM 10 MG TABLET. PO SCH (20:32)
[2018-11-30] VITALS (24 sets, daily range): BP systolic 119–180; BP diastolic 57–87
[2018-11-30] MEDS: diphenhydrAMINE 50 MG/ML VIAL IV SCH ×7 (00:02→23:50)
[2018-11-30] MEDS: PROPOFOL 100 ML IV PRN ×8 (00:02→23:50)
[2018-11-30 04:39] LABS: BASO % 0 % (0-3); EOS % 0 % (0-3); HEMOGLOBIN 14.6 g/dL (13.0-17.5); LYMPH # 1.4 x10^3/uL (1.0-4.8); LYMPH % 11 % (24-48); MEAN CORPUSCULAR HEMOGLOBIN 27 pg (25-35); MEAN CORPUSCULAR HGB CONC 33 g/dL (31-37); MEAN CORPUSCULAR VOLUME 82 fL (79-100); MONO % 8 % (0-9); NEUT # 10.6 x10^3/uL (1.8-7.7); NEUT % 81 % (31-73); PLATELET COUNT 221 x10^3/uL (140-400); RED BLOOD COUNT 5.34 x10^6/uL (4.30-5.70); RED CELL DISTRIBUTION WIDTH 14.5 % (11.5-14.5); WHITE BLOOD COUNT 13.1 x10^3/uL (4.0-11.0)
[2018-11-30 05:03] LABS: ALBUMIN 2.7 g/dL (3.4-5.0); ALBUMIN/GLOBULIN RATIO 0.8 (1.0-1.7); CALCIUM 7.9 mg/dL (8.5-10.1); GFR 92.5; POTASSIUM 4.3 mmol/L (3.5-5.1); TOTAL BILIRUBIN 0.5 mg/dL (0.2-1.0); TOTAL PROTEIN 6.1 g/dL (6.4-8.2)
[2018-11-30] MEDS: HEPARIN for SUB-Q USE 5,000 UNIT/ML VIAL. SQ SCH ×3 (05:34→22:10)
[2018-11-30] MEDS: methylPREDNISolone SOD SUCC PF 125 MG/2 ML VIAL. IV SCH ×3 (05:35→22:09)
[2018-11-30] MEDS: IPRATRPIUM/ALBUTEROL 0.5/2.5MG 3 ML NEBU. NEB SCH ×4 (07:22→19:15)
[2018-11-30 07:40] LABS: BASE EXCESS ABG 7 mmol/L (-3-3); HCO3 ABG 32 mmol/L (21-28); PCO2 ABG 50 mmHg (35-46); PO2 ABG 81 mmHg (65-108); SAT O2 ABG 96 % (92-99)
[2018-11-30 07:43] LABS: FIO2 ABG 40
--- NOTE | 2018-11-30 09:04 | PDOC ---
IM PROGRESS NOTES- Subjective Subjective Patient is more responsive but he is on mechanical ventilation and unable to respond well. Unable to do full systems review. He will be sedated again until he is extubated. Objective Vitals/I&O Vital Signs Date Time Temp Pulse Resp B/P (MAP) Pulse Ox O2 Delivery O2 Flow Rate FiO2 11/30/18 08:00 Mechanical Ventilator 11/30/18 08:00 71 18 142/70 (94) 96 11/30/18 07:00 98.2 98.2 I & O 11/29/18 11/29/18 11/30/18 15:00 23:00 07:00 Intake Total 0 ml 960 ml 2050 ml Output Total 2750 ml 1050 ml 1085 ml Balance -2750 ml -90 ml 965 ml Physical Exam Physical Exam General appearance - alert,and in no distress and opens eyes. Mental Status - alert Head - normal He has some swelling of the lower lip and tongue. Chest -sounds at bases Heart - S1 and S2 normal Abdomen - soft, non tender, non distended, Neurological -sleepy. Extremities - no pedal edema Skin - warm and dry Labs Laboratory Tests Test 11/29/18 12:39 11/29/18 19:28 11/30/18 04:15 11/30/18 07:20 Glucose (Fingerstick) 260 mg/dL (70-99) H 279 mg/dL (70-99) H White Blood Count 13.1 x10^3/uL (4.0-11.0) H Red Blood Count 5.34 x10^6/uL (4.30-5.70) Hemoglobin 14.6 g/dL (13.0-17.5) Hematocrit 44.0 % (39.0-53.0) Mean Corpuscular Volume 82 fL (79-100) Mean Corpuscular Hemoglobin 27 pg (25-35) Mean Corpuscular Hemoglobin Concent 33 g/dL (31-37) Red Cell Distribution Width 14.5 % (11.5-14.5) Platelet Count 221 x10^3/uL (140-400) Neutrophils (%) (Auto) 81 % (31-73) H Lymphocytes (%) (Auto) 11 % (24-48) L Monocytes (%) (Auto) 8 % (0-9) Eosinophils (%) (Auto) 0 % (0-3) Basophils (%) (Auto) 0 % (0-3) Neutrophils # (Auto) 10.6 x10^3/uL (1.8-7.7) H Lymphocytes # (Auto) 1.4 x10^3/uL (1.0-4.8) Monocytes # (Auto) 1.0 x10^3/uL (0.0-1.1) Eosinophils # (Auto) 0.0 x10^3/uL (0.0-0.7) Basophils # (Auto) 0.0 x10^3/uL (0.0-0.2) Sodium Level 141 mmol/L (136-145) Potassium Level 4.3 mmol/L (3.5-5.1) Chloride Level 103 mmol/L (98-107) Carbon Dioxide Level 26 mmol/L (21-32) Anion Gap 12 (6-14) Blood Urea Nitrogen 28 mg/dL (8-26) H Creatinine 1.0 mg/dL (0.7-1.3) Estimated GFR (Cockcroft-Gault) 92.5 BUN/Creatinine Ratio 28 (6-20) H Glucose Level 297 mg/dL (70-99) H Calcium Level 7.9 mg/dL (8.5-10.1) L Total Bilirubin 0.5 mg/dL (0.2-1.0) Aspartate Amino Transferase (AST) 76 U/L (15-37) H Alanine Aminotransferase (ALT) 125 U/L (16-63) H Alkaline Phosphatase 55 U/L (46-116) Total Protein 6.1 g/dL (6.4-8.2) L Albumin 2.7 g/dL (3.4-5.0) L Albumin/Globulin Ratio 0.8 (1.0-1.7) L O2 Saturation 96 % (92-99) Arterial Blood pH 7.43 (7.35-7.45) Arterial Blood pCO2 at Patient Temp 50 mmHg (35-46) H Arterial Blood pO2 at Patient Temp 81 mmHg (65-108) Arterial Blood HCO3 32 mmol/L (21-28) H Arterial Blood Base Excess 7 mmol/L (-3-3) H FiO2 40 Laboratory Tests 11/30/18 04:15 Laboratory Tests 11/30/18 04:15 Meds Current Medications Medications (Trade) Dose Ordered Sig/Logan Route PRN Reason Start Time Stop Time Status Last Admin Dose Admin Methylprednisolone Sodium Succinate (SOLU-Medrol 125MG VIAL) 100 mg Q8HRS IV 11/29/18 12:30 11/30/18 05:35 Assessment Assessment 1. Acute respiratory failure. The patient is intubated. 2. Acute angioedema, etiology not clear. The patient is supposed to be on lisinopril 10 mg daily and Lipitor 20 mg daily at bedtime and he has also been prescribed Singulair and Flonase previously for allergies. I am not sure what he has taken or currently taking. 3. Hypertension. 4. Hyperlipidemia. 5. Noncompliance. 6. History of diverticulosis. 7. Prediabetes PLAN: Condition and treatment were extensively discussed with the patient and the patient's family. The patient is sedated at this time. Consultation has been obtained with Dr. Winchester and we will see when he can be taken off the sedation and when he can be extubated. We will continue Solu-Medrol 100 mg IV q. 6 hours for now. Check labs in a.m. The patient will need an EpiPen on discharge and likely follow up with the job press feeder. For details, please refer to the orders. The patient has been admitted to Intensive Care Unit. Angioedema- patient still has some swelling. Solu-Medrol decreased to 100 mg IV every 8 hours. Add potassium chloride to the IV fluids. Hyperglycemia- On sliding scale 4 times a day. Patient also has prediabetes. Add metformin. Hemoglobin A1c 6.4. Blood sugars are not controlled. Add Lantus 10 units subcutaneous daily. Acute respiratory failure- On mechanical ventilation. Continue to keep him nothing by mouth except for meds. Extubate today or tomorrow when it is okay with Dr. Winchester. Condition treatment options discussed with the family and patient. Plan Plan For more details regarding further plans, please refer to the orders. MAYELA ALLRED MD Nov 30, 2018 09:04
--- NOTE | 2018-11-30 09:11 | PDOC ---
PULMONARY PROGRESS NOTES Subjective PT SEDATED ON VENT, Vitals Vital Signs Date Time Temp Pulse Resp B/P (MAP) Pulse Ox O2 Delivery O2 Flow Rate FiO2 11/30/18 08:00 Mechanical Ventilator 11/30/18 08:00 71 18 142/70 (94) 96 11/30/18 07:00 98.2 98.2 HEENT: Other (not much airflow with cuff down) Lungs: Clear Cardiovascular: S1, S2 Abdomen: Soft, Non-tender, Other (no mass) Extremities: No Edema Skin: Warm Labs Laboratory Tests Test 11/28/18 11:58 11/28/18 17:27 11/29/18 06:55 11/29/18 07:30 Glucose (Fingerstick) 219 mg/dL (70-99) 198 mg/dL (70-99) Triglycerides Level 913 mg/dL (0-150) O2 Saturation 97 % (92-99) Arterial Blood pH 7.45 (7.35-7.45) Arterial Blood pCO2 at Patient Temp 44 mmHg (35-46) Arterial Blood pO2 at Patient Temp 86 mmHg (65-108) Arterial Blood HCO3 30 mmol/L (21-28) Arterial Blood Base Excess 5 mmol/L (-3-3) FiO2 40 Test 11/29/18 12:39 11/29/18 19:28 11/30/18 04:15 11/30/18 07:20 Glucose (Fingerstick) 260 mg/dL (70-99) 279 mg/dL (70-99) White Blood Count 13.1 x10^3/uL (4.0-11.0) Red Blood Count 5.34 x10^6/uL (4.30-5.70) Hemoglobin 14.6 g/dL (13.0-17.5) Hematocrit 44.0 % (39.0-53.0) Mean Corpuscular Volume 82 fL (79-100) Mean Corpuscular Hemoglobin 27 pg (25-35) Mean Corpuscular Hemoglobin Concent 33 g/dL (31-37) Red Cell Distribution Width 14.5 % (11.5-14.5) Platelet Count 221 x10^3/uL (140-400) Neutrophils (%) (Auto) 81 % (31-73) Lymphocytes (%) (Auto) 11 % (24-48) Monocytes (%) (Auto) 8 % (0-9) Eosinophils (%) (Auto) 0 % (0-3) Basophils (%) (Auto) 0 % (0-3) Neutrophils # (Auto) 10.6 x10^3/uL (1.8-7.7) Lymphocytes # (Auto) 1.4 x10^3/uL (1.0-4.8) Monocytes # (Auto) 1.0 x10^3/uL (0.0-1.1) Eosinophils # (Auto) 0.0 x10^3/uL (0.0-0.7) Basophils # (Auto) 0.0 x10^3/uL (0.0-0.2) Sodium Level 141 mmol/L (136-145) Potassium Level 4.3 mmol/L (3.5-5.1) Chloride Level 103 mmol/L (98-107) Carbon Dioxide Level 26 mmol/L (21-32) Anion Gap 12 (6-14) Blood Urea Nitrogen 28 mg/dL (8-26) Creatinine 1.0 mg/dL (0.7-1.3) Estimated GFR (Cockcroft-Gault) 92.5 BUN/Creatinine Ratio 28 (6-20) Glucose Level 297 mg/dL (70-99) Calcium Level 7.9 mg/dL (8.5-10.1) Total Bilirubin 0.5 mg/dL (0.2-1.0) Aspartate Amino Transf (AST/SGOT) 76 U/L (15-37) Alanine Aminotransferase (ALT/SGPT) 125 U/L (16-63) Alkaline Phosphatase 55 U/L (46-116) Total Protein 6.1 g/dL (6.4-8.2) Albumin 2.7 g/dL (3.4-5.0) Albumin/Globulin Ratio 0.8 (1.0-1.7) O2 Saturation 96 % (92-99) Arterial Blood pH 7.43 (7.35-7.45) Arterial Blood pCO2 at Patient Temp 50 mmHg (35-46) Arterial Blood pO2 at Patient Temp 81 mmHg (65-108) Arterial Blood HCO3 32 mmol/L (21-28) Arterial Blood Base Excess 7 mmol/L (-3-3) FiO2 40 Laboratory Tests Test 11/29/18 12:39 11/29/18 19:28 11/30/18 04:15 11/30/18 07:20 Glucose (Fingerstick) 260 mg/dL (70-99) 279 mg/dL (70-99) White Blood Count 13.1 x10^3/uL (4.0-11.0) Red Blood Count 5.34 x10^6/uL (4.30-5.70) Hemoglobin 14.6 g/dL (13.0-17.5) Hematocrit 44.0 % (39.0-53.0) Mean Corpuscular Volume 82 fL (79-100) Mean Corpuscular Hemoglobin 27 pg (25-35) Mean Corpuscular Hemoglobin Concent 33 g/dL (31-37) Red Cell Distribution Width 14.5 % (11.5-14.5) Platelet Count 221 x10^3/uL (140-400) Neutrophils (%) (Auto) 81 % (31-73) Lymphocytes (%) (Auto) 11 % (24-48) Monocytes (%) (Auto) 8 % (0-9) Eosinophils (%) (Auto) 0 % (0-3) Basophils (%) (Auto) 0 % (0-3) Neutrophils # (Auto) 10.6 x10^3/uL (1.8-7.7) Lymphocytes # (Auto) 1.4 x10^3/uL (1.0-4.8) Monocytes # (Auto) 1.0 x10^3/uL (0.0-1.1) Eosinophils # (Auto) 0.0 x10^3/uL (0.0-0.7) Basophils # (Auto) 0.0 x10^3/uL (0.0-0.2) Sodium Level 141 mmol/L (136-145) Potassium Level 4.3 mmol/L (3.5-5.1) Chloride Level 103 mmol/L (98-107) Carbon Dioxide Level 26 mmol/L (21-32) Anion Gap 12 (6-14) Blood Urea Nitrogen 28 mg/dL (8-26) Creatinine 1.0 mg/dL (0.7-1.3) Estimated GFR (Cockcroft-Gault) 92.5 BUN/Creatinine Ratio 28 (6-20) Glucose Level 297 mg/dL (70-99) Calcium Level 7.9 mg/dL (8.5-10.1) Total Bilirubin 0.5 mg/dL (0.2-1.0) Aspartate Amino Transf (AST/SGOT) 76 U/L (15-37) Alanine Aminotransferase (ALT/SGPT) 125 U/L (16-63) Alkaline Phosphatase 55 U/L (46-116) Total Protein 6.1 g/dL (6.4-8.2) Albumin 2.7 g/dL (3.4-5.0) Albumin/Globulin Ratio 0.8 (1.0-1.7) O2 Saturation 96 % (92-99) Arterial Blood pH 7.43 (7.35-7.45) Arterial Blood pCO2 at Patient Temp 50 mmHg (35-46) Arterial Blood pO2 at Patient Temp 81 mmHg (65-108) Arterial Blood HCO3 32 mmol/L (21-28) Arterial Blood Base Excess 7 mmol/L (-3-3) FiO2 40 Medications Active Scripts Medications Dose Route/Sig Max Daily Dose Days Date Category Amoxicillin 500 Mg Capsule 2 Cap PO BID 04/19/17 Rx Impression . IMPRESSION: 1. Acute respiratory failure secondary to angioedema. 2. ALICIA inhibitor related angioedema. 3. Abnormal x-ray 4. Hypertension. cxr FINDINGS: Stable position of ET tube and NG tube. Heart is normal in size. Mild interstitial opacities. No focal consolidation. No pneumothorax or pleural effusion. Visualized bony thorax within normal limits. IMPRESSION: Mild interstitial opacities bilaterally may be secondary to atypical/viral infection or interstitial pulmonary edema. Plan . not ready for trial not much airlfow with cuff down d/w family at bedside will continue support tube feeding steroids luluate GAVIN CASTRO MD Nov 30, 2018 09:11
[2018-11-30] MEDS: metFORMIN 500 MG TABLET PO SCH ×2 (09:16→18:33)
[2018-11-30] MEDS: FAMOTIDINE 20 MG/2 ML VIAL IVP SCH ×2 (09:16→19:46)
[2018-11-30] MEDS: CETIRIZINE HCL 10 MG TABLET. PO SCH (09:16)
[2018-11-30] MEDS ORDERED: INSULIN GLARGINE SYRINGE. SQ SCH (10:00)
[2018-11-30] MEDS: INSULIN LISPRO 300 UNITS/3 ML VIAL. SQ SCH ×3 (13:49→23:49)
--- NOTE | 2018-11-30 16:10 | NUR ---
SS following up with discharge planning. Pt is currently on the vent. SS faxed demographics to [facility] for benefit check. SS was informed that for pt's [facility] plan there is a 30/08 rule. SS was notified that pt will need to be on the vent for 21 days and fail weaning trial and have a trach for 7 days prior to meeting LTAC requirements. Case management and pt's RN notified.
[2018-11-30] MEDS: MONTELUKAST SODIUM 10 MG TABLET. PO SCH (19:46)
[2018-11-30] MEDS: hydrALAZINE 20 MG/ML VIAL. IVP PRN (19:49)
[2018-12-01] VITALS (24 sets, daily range): BP systolic 111–208; BP diastolic 55–102
[2018-12-01] MEDS: PROPOFOL 100 ML IV PRN ×4 (02:32→10:53)
[2018-12-01] MEDS: diphenhydrAMINE 50 MG/ML VIAL IV SCH ×2 (03:31→08:05)
[2018-12-01 04:59] LABS: CALCIUM 7.9 mg/dL (8.5-10.1); CREATININE 1.1 mg/dL (0.7-1.3); GFR 82.9; POTASSIUM 4.5 mmol/L (3.5-5.1)
[2018-12-01] MEDS: metFORMIN 500 MG TABLET PO SCH ×2 (06:16→17:33)
[2018-12-01] MEDS: HEPARIN for SUB-Q USE 5,000 UNIT/ML VIAL. SQ SCH ×3 (06:16→21:24)
[2018-12-01] MEDS: methylPREDNISolone SOD SUCC PF 125 MG/2 ML VIAL. IV SCH ×2 (06:16→21:21)
[2018-12-01] MEDS: INSULIN LISPRO 300 UNITS/3 ML VIAL. SQ SCH ×3 (06:21→18:00)
[2018-12-01] MEDS: IPRATRPIUM/ALBUTEROL 0.5/2.5MG 3 ML NEBU. NEB SCH ×4 (07:22→19:47)
[2018-12-01 07:39] LABS: BASE EXCESS ABG 5 mmol/L (-3-3); HCO3 ABG 31 mmol/L (21-28); PCO2 ABG 49 mmHg (35-46); PO2 ABG 93 mmHg (65-108); SAT O2 ABG 97 % (92-99)
[2018-12-01 07:44] LABS: FIO2 ABG 40
--- NOTE | 2018-12-01 09:19 | PDOC ---
IM PROGRESS NOTES- Subjective Subjective Patient is more responsive but he is on mechanical ventilation and unable to respond well. Unable to do full systems review. He will be sedated again until he is extubated. Objective Vitals/I&O Vital Signs Date Time Temp Pulse Resp B/P (MAP) Pulse Ox O2 Delivery O2 Flow Rate FiO2 12/01/18 08:00 Mechanical Ventilator 12/01/18 08:00 99.5 80 18 122/69 (86) 95 99.5 I & O 11/30/18 11/30/18 12/01/18 15:00 23:00 07:00 Intake Total 400 ml 912 ml 3342 ml Output Total 1200 ml 1150 ml 1025 ml Balance -800 ml -238 ml 2317 ml Physical Exam Physical Exam General appearance - alert,and in no distress and opens eyes. Mental Status - alert Head - normal He has some swelling of the lower lip and tongue. Chest -sounds at bases Heart - S1 and S2 normal Abdomen - soft, non tender, non distended, Neurological -sleepy. Extremities - no pedal edema Skin - warm and dry Labs Laboratory Tests Test 11/30/18 13:47 11/30/18 18:37 11/30/18 23:48 12/01/18 04:20 Glucose (Fingerstick) 276 mg/dL (70-99) H 302 mg/dL (70-99) H 227 mg/dL (70-99) H Sodium Level 141 mmol/L (136-145) Potassium Level 4.5 mmol/L (3.5-5.1) Chloride Level 102 mmol/L (98-107) Carbon Dioxide Level 26 mmol/L (21-32) Anion Gap 13 (6-14) Blood Urea Nitrogen 32 mg/dL (8-26) H Creatinine 1.1 mg/dL (0.7-1.3) Estimated GFR (Cockcroft-Gault) 82.9 Glucose Level 292 mg/dL (70-99) H Calcium Level 7.9 mg/dL (8.5-10.1) L Test 12/01/18 06:18 12/01/18 07:00 Glucose (Fingerstick) 243 mg/dL (70-99) H O2 Saturation 97 % (92-99) Arterial Blood pH 7.41 (7.35-7.45) Arterial Blood pCO2 at Patient Temp 49 mmHg (35-46) H Arterial Blood pO2 at Patient Temp 93 mmHg (65-108) Arterial Blood HCO3 31 mmol/L (21-28) H Arterial Blood Base Excess 5 mmol/L (-3-3) H FiO2 40 Laboratory Tests 12/01/18 04:20 Meds Current Medications Medications (Trade) Dose Ordered Sig/Logan Route PRN Reason Start Time Stop Time Status Last Admin Dose Admin Insulin Human Lispro (HumaLOG) 0-10 UNITS Q6HRS SQ 11/30/18 12:00 12/01/18 06:21 Insulin Glargine (Lantus Syringe) 10 unit DAILY10 SQ 11/30/18 10:00 11/30/18 10:33 Assessment Assessment 1. Acute respiratory failure. The patient is intubated. 2. Acute angioedema, etiology not clear. The patient is supposed to be on lisinopril 10 mg daily and Lipitor 20 mg daily at bedtime and he has also been prescribed Singulair and Flonase previously for allergies. I am not sure what he has taken or currently taking. 3. Hypertension. 4. Hyperlipidemia. 5. Noncompliance. 6. History of diverticulosis. 7. Prediabetes PLAN: Condition and treatment were extensively discussed with the patient and the patient's family. The patient is sedated at this time. Consultation has been obtained with Dr. Winchester and we will see when he can be taken off the sedation and when he can be extubated. We will continue Solu-Medrol 100 mg IV q. 6 hours for now. Check labs in a.m. The patient will need an EpiPen on discharge and likely follow up with the manager laboratory. For details, please refer to the orders. The patient has been admitted to Intensive Care Unit. Angioedema- patient still has some swelling. Solu-Medrol decreased to 100 mg IV every 8 hours. Add potassium chloride to the IV fluids. Hyperglycemia- On sliding scale 4 times a day. Patient also has prediabetes. Add metformin. Hemoglobin A1c 6.4. Blood sugars are not controlled. Increase Lantus to 20 units subcutaneous daily. Acute respiratory failure- On mechanical ventilation. Continue to keep him nothing by mouth except for meds. Extubate today or tomorrow when it is okay with Dr. Winchester. Low grade fever- consult . Condition treatment options discussed with the family and patient. Plan Plan For more details regarding further plans, please refer to the orders. MAYELA ALLRED MD Dec 01, 2018 09:19
--- NOTE | 2018-12-01 09:33 | PDOC ---
PULMONARY PROGRESS NOTES Subjective PT SEDATED ON AC MODE Vitals Vital Signs Date Time Temp Pulse Resp B/P (MAP) Pulse Ox O2 Delivery O2 Flow Rate FiO2 12/01/18 08:00 Mechanical Ventilator 12/01/18 08:00 99.5 80 18 122/69 (86) 95 99.5 HEENT: Other (not much airflow with cuff down) Lungs: Clear Cardiovascular: S1, S2 Abdomen: Soft, Non-tender, Other (no mass) Extremities: No Edema Skin: Warm Labs Laboratory Tests Test 11/29/18 12:39 11/29/18 19:28 11/30/18 04:15 11/30/18 07:20 Glucose (Fingerstick) 260 mg/dL (70-99) 279 mg/dL (70-99) White Blood Count 13.1 x10^3/uL (4.0-11.0) Red Blood Count 5.34 x10^6/uL (4.30-5.70) Hemoglobin 14.6 g/dL (13.0-17.5) Hematocrit 44.0 % (39.0-53.0) Mean Corpuscular Volume 82 fL (79-100) Mean Corpuscular Hemoglobin 27 pg (25-35) Mean Corpuscular Hemoglobin Concent 33 g/dL (31-37) Red Cell Distribution Width 14.5 % (11.5-14.5) Platelet Count 221 x10^3/uL (140-400) Neutrophils (%) (Auto) 81 % (31-73) Lymphocytes (%) (Auto) 11 % (24-48) Monocytes (%) (Auto) 8 % (0-9) Eosinophils (%) (Auto) 0 % (0-3) Basophils (%) (Auto) 0 % (0-3) Neutrophils # (Auto) 10.6 x10^3/uL (1.8-7.7) Lymphocytes # (Auto) 1.4 x10^3/uL (1.0-4.8) Monocytes # (Auto) 1.0 x10^3/uL (0.0-1.1) Eosinophils # (Auto) 0.0 x10^3/uL (0.0-0.7) Basophils # (Auto) 0.0 x10^3/uL (0.0-0.2) Sodium Level 141 mmol/L (136-145) Potassium Level 4.3 mmol/L (3.5-5.1) Chloride Level 103 mmol/L (98-107) Carbon Dioxide Level 26 mmol/L (21-32) Anion Gap 12 (6-14) Blood Urea Nitrogen 28 mg/dL (8-26) Creatinine 1.0 mg/dL (0.7-1.3) Estimated GFR (Cockcroft-Gault) 92.5 BUN/Creatinine Ratio 28 (6-20) Glucose Level 297 mg/dL (70-99) Calcium Level 7.9 mg/dL (8.5-10.1) Total Bilirubin 0.5 mg/dL (0.2-1.0) Aspartate Amino Transf (AST/SGOT) 76 U/L (15-37) Alanine Aminotransferase (ALT/SGPT) 125 U/L (16-63) Alkaline Phosphatase 55 U/L (46-116) Total Protein 6.1 g/dL (6.4-8.2) Albumin 2.7 g/dL (3.4-5.0) Albumin/Globulin Ratio 0.8 (1.0-1.7) O2 Saturation 96 % (92-99) Arterial Blood pH 7.43 (7.35-7.45) Arterial Blood pCO2 at Patient Temp 50 mmHg (35-46) Arterial Blood pO2 at Patient Temp 81 mmHg (65-108) Arterial Blood HCO3 32 mmol/L (21-28) Arterial Blood Base Excess 7 mmol/L (-3-3) FiO2 40 Test 11/30/18 13:47 11/30/18 18:37 11/30/18 23:48 12/01/18 04:20 Glucose (Fingerstick) 276 mg/dL (70-99) 302 mg/dL (70-99) 227 mg/dL (70-99) Sodium Level 141 mmol/L (136-145) Potassium Level 4.5 mmol/L (3.5-5.1) Chloride Level 102 mmol/L (98-107) Carbon Dioxide Level 26 mmol/L (21-32) Anion Gap 13 (6-14) Blood Urea Nitrogen 32 mg/dL (8-26) Creatinine 1.1 mg/dL (0.7-1.3) Estimated GFR (Cockcroft-Gault) 82.9 Glucose Level 292 mg/dL (70-99) Calcium Level 7.9 mg/dL (8.5-10.1) Test 12/01/18 06:18 12/01/18 07:00 Glucose (Fingerstick) 243 mg/dL (70-99) O2 Saturation 97 % (92-99) Arterial Blood pH 7.41 (7.35-7.45) Arterial Blood pCO2 at Patient Temp 49 mmHg (35-46) Arterial Blood pO2 at Patient Temp 93 mmHg (65-108) Arterial Blood HCO3 31 mmol/L (21-28) Arterial Blood Base Excess 5 mmol/L (-3-3) FiO2 40 Laboratory Tests Test 11/30/18 13:47 11/30/18 18:37 11/30/18 23:48 12/01/18 04:20 Glucose (Fingerstick) 276 mg/dL (70-99) 302 mg/dL (70-99) 227 mg/dL (70-99) Sodium Level 141 mmol/L (136-145) Potassium Level 4.5 mmol/L (3.5-5.1) Chloride Level 102 mmol/L (98-107) Carbon Dioxide Level 26 mmol/L (21-32) Anion Gap 13 (6-14) Blood Urea Nitrogen 32 mg/dL (8-26) Creatinine 1.1 mg/dL (0.7-1.3) Estimated GFR (Cockcroft-Gault) 82.9 Glucose Level 292 mg/dL (70-99) Calcium Level 7.9 mg/dL (8.5-10.1) Test 12/01/18 06:18 12/01/18 07:00 Glucose (Fingerstick) 243 mg/dL (70-99) O2 Saturation 97 % (92-99) Arterial Blood pH 7.41 (7.35-7.45) Arterial Blood pCO2 at Patient Temp 49 mmHg (35-46) Arterial Blood pO2 at Patient Temp 93 mmHg (65-108) Arterial Blood HCO3 31 mmol/L (21-28) Arterial Blood Base Excess 5 mmol/L (-3-3) FiO2 40 Medications Active Scripts Medications Dose Route/Sig Max Daily Dose Days Date Category Amoxicillin 500 Mg Capsule 2 Cap PO BID 04/19/17 Rx Impression . IMPRESSION: 1. Acute respiratory failure secondary to angioedema. 2. ALICIA inhibitor related angioedema. 3. Abnormal x-ray SUSPECT ATELECTASIS DIFFICULT TO RULE OUT PNEUMONIA 4. Hypertension. CXR IMPRESSION: 1. Life support devices as above. 2. Unchanged low lung volumes and bibasilar atelectasis or infiltrates. Plan . DEFLATTED CUFF NOW AIR AROUND TUBE WILL TRIAL AND POSSIBLE D/C TUBE DECREASE STEROIDS D/C ANTIHISTAMINE d/w family at bedside D/W DR RUTHERFORD FROM ID CCT [id number] MIN FORMULATING A PLAN, REVIEWING DATA/CXRAYS/AND LABS GAVIN CASTRO MD Dec 01, 2018 09:33
--- NOTE | 2018-12-01 09:50 | RAD ---
Examination: KUB History: OG tube placement Comparison/Correlation: 11/25/2018 KUB exam Findings: Portal supine frontal view of the upper abdomen was obtained. Enteric tube terminates a few centimeters past the gastroesophageal junction. Bowel gas pattern is unremarkable. Impression: Enteric tube at the level just past the expected site of the gastroesophageal junction. Electronically signed by: Александр Stratton MD (12/01/2018 9:47 AM) [facility]
--- NOTE | 2018-12-01 09:53 | RAD ---
Examination: KUB History: OG tube advancement Comparison/Correlation: KUB exam performed earlier on the same day Findings: Frontal view of the upper abdomen was obtained. Enteric tube terminates at the lateral left mid abdomen within the expected site of the body of the stomach. Bowel gas pattern is unchanged with no significant distention of a small bowel loop suspected. Impression: Interval advancement of the OG tube. Electronically signed by: Александр Stratton MD (12/01/2018 9:50 AM) [facility]
[2018-12-01] MEDS: FAMOTIDINE 20 MG/2 ML VIAL IVP SCH ×2 (10:17→21:21)
[2018-12-01] MEDS: CETIRIZINE HCL 10 MG TABLET. PO SCH (10:18)
[2018-12-01] MEDS: INSULIN GLARGINE SYRINGE. SQ SCH (10:29)
--- NOTE | 2018-12-01 10:37 | RAD ---
CHEST AP ONLY Clinical Indication: Endotracheal tube placement. Comparison: AP chest, 2 days ago. Findings: Endotracheal tube tip is 6.1 cm superior to the dia. Enteric tube tip is in the proximal stomach. The cardiomediastinal silhouette is stable. Low lung volumes. Bibasilar airspace opacities are unchanged. Pulmonary vasculature is upper limits of normal. There is no pneumothorax. No pleural effusion is appreciated. No acute bone abnormality. IMPRESSION: 1. Life support devices as above. 2. Unchanged low lung volumes and bibasilar atelectasis or infiltrates. Electronically signed by: Ravi Sidhu MD (12/01/2018 10:34 AM) [id number]
--- NOTE | 2018-12-01 12:17 | PDOC ---
Infectious Disease Note Subjective: Subjective Vital Signs: Vital Signs Vital Signs Date Time Temp Pulse Resp B/P (MAP) Pulse Ox O2 Delivery O2 Flow Rate FiO2 12/01/18 11:11 97 Ventilator 12/01/18 10:00 70 18 125/64 (84) 12/01/18 08:00 99.5 99.5 Medications: Inpatient Meds: Current Medications Medications (Trade) Dose Ordered Sig/Logan Start Time Stop Time Status Last Admin Dose Admin Acetaminophen (Tylenol) 650 mg PRN Q4HRS PRN 11/25/18 22:45 Albuterol/ Ipratropium (Duoneb) 3 ml RTQID 11/27/18 16:00 12/01/18 11:15 3 ML Cetirizine HCl (ZyrTEC) 10 mg DAILY 11/26/18 12:00 12/01/18 10:18 10 MG Chlorhexidine Gluconate (Peridex) 15 ml BID 11/26/18 09:00 11/26/18 10:21 DC Dextrose/Sodium Chloride 1,000 ml @ 75 mls/hr [id number] 11/26/18 11:00 11/26/18 19:34 DC 11/26/18 11:15 75 MLS/HR Diphenhydramine HCl (Benadryl) 25 mg Q4HRS 11/26/18 00:00 12/01/18 08:05 25 MG Epinephrine HCl (Adrenalin) 0.3 mg PRN Q5MIN PRN 11/25/18 22:45 Etomidate (Amidate) 20 mg 1X ONCE 11/25/18 20:19 11/25/18 22:28 DC 11/25/18 20:19 20 MG Famotidine (Pepcid Vial) 20 mg BID 11/26/18 21:00 12/01/18 10:17 20 MG Fentanyl Citrate 30 ml @ 0 mls/hr CONT PRN 11/25/18 22:45 12/01/18 03:54 2.5 MLS/HR Fentanyl Citrate (Fentanyl 2ml Vial) 50 mcg PRN Q1HR PRN 11/25/18 20:45 11/28/18 12:03 50 MCG Furosemide (Lasix) 20 mg 1X ONCE 11/29/18 06:30 11/29/18 06:31 DC 11/29/18 06:52 20 MG Heparin Sodium (Porcine) (Heparin Sodium) 5,000 unit Q8HRS 11/26/18 06:00 12/01/18 06:16 5,000 UNIT Hydralazine HCl (Apresoline Inj) 10 mg PRN Q4HRS PRN 11/29/18 12:45 UNV Insulin Glargine (Lantus Syringe) 20 unit [id number] 12/01/18 10:00 12/01/18 10:29 20 UNIT Insulin Human Lispro (HumaLOG) 0-10 UNITS Q6HRS 11/30/18 12:00 12/01/18 06:21 4 UNITS Metformin HCl (Glucophage) 500 mg [id number] 11/27/18 10:00 12/01/18 06:16 500 MG Methylprednisolone Sodium Succinate (SOLU-Medrol 40MG VIAL) 100 mg Q6HRS 11/26/18 12:00 11/26/18 12:14 DC Methylprednisolone Sodium Succinate (SOLU-Medrol 125MG VIAL) 100 mg Q8HRS 11/29/18 12:30 12/01/18 06:16 100 MG Midazolam HCl (Versed) 5 mg STK-MED ONCE 11/26/18 16:00 11/27/18 09:06 DC Montelukast Sodium (Singulair) 10 mg QHS 11/26/18 21:00 11/30/18 19:46 10 MG Ondansetron HCl (Zofran) 4 mg PRN Q8HRS PRN 11/25/18 21:15 11/26/18 21:14 DC Potassium Chloride/Sodium Chloride 1,000 ml @ 75 mls/hr [id number] 11/27/18 09:30 11/29/18 06:09 DC 11/29/18 03:40 75 MLS/HR Propofol (Diprivan) 100 mg 1X ONCE 11/25/18 21:12 11/25/18 22:32 DC 11/25/18 21:12 100 MG Rocuronium [place] (Zemuron) 50 mg 1X ONCE 11/25/18 20:29 11/25/18 22:32 DC 11/25/18 20:29 50 MG Sodium Bicarbonate 150 meq/Dextrose 1,150 ml @ 125 mls/hr [id number] 11/28/18 15:00 Cancel Sodium Chloride 1,000 ml @ 75 mls/hr [id number] 11/26/18 21:00 11/27/18 09:24 DC 11/27/18 08:19 75 MLS/HR Succinylcholine Chloride (Anectine) 100 mg 1X ONCE 11/25/18 22:30 11/25/18 22:32 DC 11/25/18 20:20 100 MG Labs: Lab Laboratory Tests Test 11/30/18 13:47 11/30/18 18:37 11/30/18 23:48 12/01/18 04:20 Glucose (Fingerstick) 276 mg/dL (70-99) 302 mg/dL (70-99) 227 mg/dL (70-99) Sodium Level 141 mmol/L (136-145) Potassium Level 4.5 mmol/L (3.5-5.1) Chloride Level 102 mmol/L (98-107) Carbon Dioxide Level 26 mmol/L (21-32) Anion Gap 13 (6-14) Blood Urea Nitrogen 32 mg/dL (8-26) Creatinine 1.1 mg/dL (0.7-1.3) Estimated GFR (Cockcroft-Gault) 82.9 Glucose Level 292 mg/dL (70-99) Calcium Level 7.9 mg/dL (8.5-10.1) Test 12/01/18 06:18 12/01/18 07:00 12/01/18 10:25 Glucose (Fingerstick) 243 mg/dL (70-99) 234 mg/dL (70-99) O2 Saturation 97 % (92-99) Arterial Blood pH 7.41 (7.35-7.45) Arterial Blood pCO2 at Patient Temp 49 mmHg (35-46) Arterial Blood pO2 at Patient Temp 93 mmHg (65-108) Arterial Blood HCO3 31 mmol/L (21-28) Arterial Blood Base Excess 5 mmol/L (-3-3) FiO2 40 Objective: Assessment: pt seen and examined ID consult dictated Imp Leucocytosis multifactorial on steroids Low grade fever likely atelectasis Acute resp failure angioedema acute Pulm infiltrates improving on todays x ray Plan: Plan of Care monitor off antibiotics for now f/u labs and cults awaiting weaning trial Thank you KAJAL RUTHERFORD MD Dec 01, 2018 12:17
--- NOTE | 2018-12-01 12:33 | CONS ---
DATE OF CONSULTATION: 12/01/2018 REFERRING PHYSICIAN: Dr. Lopez. REASON FOR CONSULTATION: Low-grade fever, possible infection. HISTORY OF PRESENT ILLNESS: A 58-year-old male presented to the ER with sudden onset of throat swelling, difficulty swallowing when he woke up from sleep. The patient presented to the ER. He was noted to have angioedema with tongue and uvula swelling. His breathing got worse and he was emergently intubated requiring admission to ICU and IV steroids. The patient's white count was normal. Chest x-ray on admission showed heterogeneous opacities in the lung bases with a right hemidiaphragm elevation with passive atelectasis of right middle and lower lobes. Nasogastric tube. No dilated bowel loops. The patient has not been on any antibiotics. Yesterday, he had a fever of 99.6. This morning, he had 99.95. The patient is more alert. He is responding. He is awaiting a weaning trial with possible extubation. The patient had an NG tube, which was pulled out a little bit, which was readjusted. KUB showed interval advancement of the OG tube. Chest x-ray showed unchanged low lung volumes and bibasilar atelectasis or infiltrates. Per my evaluation, it shows improvement. The patient denies any fever prior to admission. Denied any oral sores, shortness of breath, or cough. Denies any sick contact prior to admission. PAST MEDICAL HISTORY: Hypertension, hyperlipidemia, diverticulosis, internal hemorrhoids, and allergic rhinitis. PAST SURGICAL HISTORY: Muscle tear in 2010 and lipoma removal. FAMILY HISTORY: As per HPI. SOCIAL HISTORY: Former smoker, no alcohol, no drug abuse. CURRENT MEDICATIONS: IV antibiotics: None. PO antibiotics: None. Other medications reviewed in medication list. PHYSICAL EXAMINATION: VITAL SIGNS: Temperature 99.5, T-max 99.6, pulse 70, respiratory rate 18, blood pressure 125/64, and oxygen saturation 97% on 40% FiO2. GENERAL: The patient is sedated on mechanical ventilation, opens eyes, answers a few questions. HEENT: Anicteric. OG tube in place. ETT in place. NECK: Supple. Trachea midline. LUNGS: Decreased breath sounds at the bases, otherwise clear. HEART: S1, S2 regular. ABDOMEN: Soft, nontender, nondistended. GENITOURINARY: Chow in place. EXTREMITIES: No edema. DERMATOLOGIC: Warm, dry. No generalized rash. NEUROLOGIC: Sleepy, but arousable. LABORATORY DATA: WBC 13.1, hemoglobin 14.6, hematocrit 44, platelets 221. Sodium 141, potassium 4.5, chloride 102, bicarb 26, BUN 32, creatinine 1.1, and glucose 292. Hepatitis profile negative. IMAGING: Chest x-ray shows slight improvement in bibasilar atelectasis per my review, unchanged low lung volume and ETT in place. OG tube in place. IMPRESSION: 1. Acute respiratory failure, status post intubation, awaiting weaning trial for extubation. 2. Acute angioedema, etiology unclear, supposed to be on lisinopril. 3. Low-grade fever, likely from atelectasis. Chest x-ray improved from yesterday. 4. Hypertension. 5. Hyperlipidemia. 6. History of diverticulosis. 7. Leukocytosis, the patient is on steroids. RECOMMENDATIONS: 1. Continue observation off antibiotics. 2. Maintain aspiration precaution. 3. The patient is awaiting weaning trial for extubation later today. 4. Discontinue Chow whenever possible. Thank you, Dr. Lopez, for consulting Infectious Disease to participate in this patient's care. We will follow along with you. Discussed with nursing staff. KAJAL RUTHERFORD MD DR: CURTIS/nts JOB#: [id number] / [id number]
[2018-12-01] MEDS: hydrALAZINE 20 MG/ML VIAL. IVP PRN (13:02)
--- NOTE | 2018-12-01 13:40 | NUR ---
Patient extubated at 1255 to 3L NC.
[2018-12-01] MEDS: MONTELUKAST SODIUM 10 MG TABLET. PO SCH (21:00)
[2018-12-02] VITALS (14 sets, daily range): BP systolic 150–184; BP diastolic 71–91
[2018-12-02] MEDS: INSULIN LISPRO 300 UNITS/3 ML VIAL. SQ SCH ×4 (00:20→17:09)
[2018-12-02] MEDS: hydrALAZINE 20 MG/ML VIAL. IVP PRN (04:25)
[2018-12-02 04:59] LABS: BASO % 0 % (0-3); EOS % 0 % (0-3); HEMOGLOBIN 15.4 g/dL (13.0-17.5); LYMPH # 1.7 x10^3/uL (1.0-4.8); LYMPH % 12 % (24-48); MEAN CORPUSCULAR HEMOGLOBIN 27 pg (25-35); MEAN CORPUSCULAR HGB CONC 33 g/dL (31-37); MEAN CORPUSCULAR VOLUME 83 fL (79-100); MONO # 1.1 x10^3/uL (0.0-1.1); MONO % 7 % (0-9); NEUT # 11.7 x10^3/uL (1.8-7.7); NEUT % 81 % (31-73); PLATELET COUNT 211 x10^3/uL (140-400); RED BLOOD COUNT 5.65 x10^6/uL (4.30-5.70); RED CELL DISTRIBUTION WIDTH 15.1 % (11.5-14.5); WHITE BLOOD COUNT 14.5 x10^3/uL (4.0-11.0)
[2018-12-02 05:13] LABS: ALBUMIN 2.9 g/dL (3.4-5.0); ALBUMIN/GLOBULIN RATIO 0.8 (1.0-1.7); CALCIUM 8.3 mg/dL (8.5-10.1); CREATININE 1.1 mg/dL (0.7-1.3); GFR 82.9; POTASSIUM 4.6 mmol/L (3.5-5.1); TOTAL BILIRUBIN 0.8 mg/dL (0.2-1.0); TOTAL PROTEIN 6.6 g/dL (6.4-8.2)
[2018-12-02] MEDS: HEPARIN for SUB-Q USE 5,000 UNIT/ML VIAL. SQ SCH ×3 (06:24→21:32)
--- NOTE | 2018-12-02 07:39 | PDOC ---
Infectious Disease Note Subjective: Subjective pt extubated yesterday no complaints no tongue swelling or soreness in the mouth no f/c/n/v/d/sob or cough somewhat weak awaiting swallow eval this am d/w rn ROS: ROS Negative otherwise. Vital Signs: Vital Signs Vital Signs Date Time Temp Pulse Resp B/P (MAP) Pulse Ox O2 Delivery O2 Flow Rate FiO2 12/02/18 06:00 84 26 158/71 (100) 93 Nasal Cannula 2.0 12/02/18 04:00 98.0 98.0 Physical Exam: PHYSICAL EXAM GENERAL: axoxo3 male in nad sitting in chair HEENT: Anicteric. no oral lesions,dentition good, tongue no swelling NECK: Supple. no jvd, no lad LUNGS: Decreased breath sounds at the bases mainly on RT, otherwise clear. HEART: S1, S2 regular. ABDOMEN: Soft, nontender, nondistended. GENITOURINARY: Chow in place. EXTREMITIES: No edema. DERMATOLOGIC: Warm, dry. No generalized rash. NEUROLOGIC: nonfocal grossly Medications: Inpatient Meds: Current Medications Medications (Trade) Dose Ordered Sig/Logan Start Time Stop Time Status Last Admin Dose Admin Acetaminophen (Tylenol) 650 mg PRN Q4HRS PRN 11/25/18 22:45 Albuterol/ Ipratropium (Duoneb) 3 ml RTQID 11/27/18 16:00 12/01/18 19:47 3 ML Cetirizine HCl (ZyrTEC) 10 mg DAILY 11/26/18 12:00 12/01/18 10:18 10 MG Chlorhexidine Gluconate (Peridex) 15 ml BID 11/26/18 09:00 11/26/18 10:21 DC Dextrose/Sodium Chloride 1,000 ml @ 75 mls/hr [id number] 11/26/18 11:00 11/26/18 19:34 DC 11/26/18 11:15 75 MLS/HR Diphenhydramine HCl (Benadryl) 25 mg Q4HRS 11/26/18 00:00 12/01/18 12:19 DC 12/01/18 08:05 25 MG Epinephrine HCl (Adrenalin) 0.3 mg PRN Q5MIN PRN 11/25/18 22:45 Etomidate (Amidate) 20 mg 1X ONCE 11/25/18 20:19 11/25/18 22:28 DC 11/25/18 20:19 20 MG Famotidine (Pepcid Vial) 20 mg BID 11/26/18 21:00 12/01/18 21:21 20 MG Fentanyl Citrate 30 ml @ 0 mls/hr CONT PRN 11/25/18 22:45 12/01/18 03:54 2.5 MLS/HR Fentanyl Citrate (Fentanyl 2ml Vial) 50 mcg PRN Q1HR PRN 11/25/18 20:45 11/28/18 12:03 50 MCG Furosemide (Lasix) 20 mg 1X ONCE 11/29/18 06:30 11/29/18 06:31 DC 11/29/18 06:52 20 MG Heparin Sodium (Porcine) (Heparin Sodium) 5,000 unit Q8HRS 11/26/18 06:00 12/02/18 06:24 5,000 UNIT Hydralazine HCl (Apresoline Inj) 10 mg PRN Q4HRS PRN 11/29/18 12:45 UNV Insulin Glargine (Lantus Syringe) 20 unit [id number] 12/01/18 10:00 12/01/18 10:29 20 UNIT Insulin Human Lispro (HumaLOG) 0-10 UNITS Q6HRS 11/30/18 12:00 12/02/18 00:20 2 UNITS Metformin HCl (Glucophage) 500 mg [id number] 11/27/18 10:00 12/01/18 06:16 500 MG Methylprednisolone Sodium Succinate (SOLU-Medrol 40MG VIAL) 100 mg Q6HRS 11/26/18 12:00 11/26/18 12:14 DC Methylprednisolone Sodium Succinate (SOLU-Medrol 125MG VIAL) 100 mg Q12HR 12/01/18 21:00 12/01/18 21:21 100 MG Midazolam HCl (Versed) 5 mg STK-MED ONCE 11/26/18 16:00 11/27/18 09:06 DC Montelukast Sodium (Singulair) 10 mg QHS 11/26/18 21:00 11/30/18 19:46 10 MG Ondansetron HCl (Zofran) 4 mg PRN Q8HRS PRN 11/25/18 21:15 11/26/18 21:14 DC Potassium Chloride/Sodium Chloride 1,000 ml @ 75 mls/hr [id number] 11/27/18 09:30 11/29/18 06:09 DC 11/29/18 03:40 75 MLS/HR Propofol (Diprivan) 100 mg 1X ONCE 11/25/18 21:12 11/25/18 22:32 DC 11/25/18 21:12 100 MG Rocuronium [place] (Zemuron) 50 mg 1X ONCE 11/25/18 20:29 11/25/18 22:32 DC 11/25/18 20:29 50 MG Sodium Bicarbonate 150 meq/Dextrose 1,150 ml @ 125 mls/hr [id number] 11/28/18 15:00 Cancel Sodium Chloride 1,000 ml @ 75 mls/hr [id number] 11/26/18 21:00 11/27/18 09:24 DC 11/27/18 08:19 75 MLS/HR Succinylcholine Chloride (Anectine) 100 mg 1X ONCE 11/25/18 22:30 11/25/18 22:32 DC 11/25/18 20:20 100 MG Labs: Lab Laboratory Tests Test 12/01/18 10:25 12/01/18 12:35 12/01/18 18:45 12/02/18 00:17 Glucose (Fingerstick) 234 mg/dL (70-99) 264 mg/dL (70-99) 155 mg/dL (70-99) 231 mg/dL (70-99) Test 12/02/18 04:35 12/02/18 06:19 White Blood Count 14.5 x10^3/uL (4.0-11.0) Red Blood Count 5.65 x10^6/uL (4.30-5.70) Hemoglobin 15.4 g/dL (13.0-17.5) Hematocrit 47.0 % (39.0-53.0) Mean Corpuscular Volume 83 fL (79-100) Mean Corpuscular Hemoglobin 27 pg (25-35) Mean Corpuscular Hemoglobin Concent 33 g/dL (31-37) Red Cell Distribution Width 15.1 % (11.5-14.5) Platelet Count 211 x10^3/uL (140-400) Neutrophils (%) (Auto) 81 % (31-73) Lymphocytes (%) (Auto) 12 % (24-48) Monocytes (%) (Auto) 7 % (0-9) Eosinophils (%) (Auto) 0 % (0-3) Basophils (%) (Auto) 0 % (0-3) Neutrophils # (Auto) 11.7 x10^3/uL (1.8-7.7) Lymphocytes # (Auto) 1.7 x10^3/uL (1.0-4.8) Monocytes # (Auto) 1.1 x10^3/uL (0.0-1.1) Eosinophils # (Auto) 0.0 x10^3/uL (0.0-0.7) Basophils # (Auto) 0.0 x10^3/uL (0.0-0.2) Sodium Level 145 mmol/L (136-145) Potassium Level 4.6 mmol/L (3.5-5.1) Chloride Level 106 mmol/L (98-107) Carbon Dioxide Level 31 mmol/L (21-32) Anion Gap 8 (6-14) Blood Urea Nitrogen 32 mg/dL (8-26) Creatinine 1.1 mg/dL (0.7-1.3) Estimated GFR (Cockcroft-Gault) 82.9 BUN/Creatinine Ratio 29 (6-20) Glucose Level 238 mg/dL (70-99) Calcium Level 8.3 mg/dL (8.5-10.1) Total Bilirubin 0.8 mg/dL (0.2-1.0) Aspartate Amino Transf (AST/SGOT) 63 U/L (15-37) Alanine Aminotransferase (ALT/SGPT) 230 U/L (16-63) Alkaline Phosphatase 60 U/L (46-116) Total Protein 6.6 g/dL (6.4-8.2) Albumin 2.9 g/dL (3.4-5.0) Albumin/Globulin Ratio 0.8 (1.0-1.7) Glucose (Fingerstick) 187 mg/dL (70-99) Objective: Assessment: 1. Acute respiratory failure, extubated 2. Acute angioedema, etiology unclear, supposed to be on lisinopril. 3. Low-grade fever, likely from atelectasis. now resolved 4. Pulm infiltrates , Chest x-ray improving 5. Hyperlipidemia/htn 6. History of diverticulosis. 7. Leukocytosis, on steroids. Plan: Plan of Care monitor off antibiotics for now f/u labs and cults PT and OT Discontinue Chow whenever possible. D/W KAJAL ERICKSON MD Dec 02, 2018 07:39
[2018-12-02] MEDS: IPRATRPIUM/ALBUTEROL 0.5/2.5MG 3 ML NEBU. NEB SCH ×4 (08:00→19:21)
--- NOTE | 2018-12-02 09:25 | PDOC ---
IM PROGRESS NOTES- Subjective Subjective Patient extubated yesterday. denies pain,dyspnea. Objective Vitals/I&O Vital Signs Date Time Temp Pulse Resp B/P (MAP) Pulse Ox O2 Delivery O2 Flow Rate FiO2 12/02/18 08:00 Nasal Cannula 2.0 12/02/18 06:00 84 26 158/71 (100) 93 12/02/18 04:00 98.0 98.0 I & O 12/01/18 12/01/18 12/02/18 15:00 23:00 07:00 Intake Total 489 ml Output Total 800 ml 1135 ml 1525 ml Balance -311 ml -1135 ml -1525 ml Physical Exam Physical Exam General appearance - alert,and in no distress and opens eyes. Afebrile Mental Status - alert Head - normal No swelling of the lower lip and tongue. Chest -decreased sounds at bases, extubated Heart - S1 and S2 normal Abdomen - soft, non tender, non distended, Neurological -alert,appropriate Extremities - no pedal edema Skin - warm and dry Labs Laboratory Tests Test 12/01/18 10:25 12/01/18 12:35 12/01/18 18:45 12/02/18 00:17 Glucose (Fingerstick) 234 mg/dL (70-99) H 264 mg/dL (70-99) H 155 mg/dL (70-99) H 231 mg/dL (70-99) H Test 12/02/18 04:35 12/02/18 06:19 White Blood Count 14.5 x10^3/uL (4.0-11.0) H Red Blood Count 5.65 x10^6/uL (4.30-5.70) Hemoglobin 15.4 g/dL (13.0-17.5) Hematocrit 47.0 % (39.0-53.0) Mean Corpuscular Volume 83 fL (79-100) Mean Corpuscular Hemoglobin 27 pg (25-35) Mean Corpuscular Hemoglobin Concent 33 g/dL (31-37) Red Cell Distribution Width 15.1 % (11.5-14.5) H Platelet Count 211 x10^3/uL (140-400) Neutrophils (%) (Auto) 81 % (31-73) H Lymphocytes (%) (Auto) 12 % (24-48) L Monocytes (%) (Auto) 7 % (0-9) Eosinophils (%) (Auto) 0 % (0-3) Basophils (%) (Auto) 0 % (0-3) Neutrophils # (Auto) 11.7 x10^3/uL (1.8-7.7) H Lymphocytes # (Auto) 1.7 x10^3/uL (1.0-4.8) Monocytes # (Auto) 1.1 x10^3/uL (0.0-1.1) Eosinophils # (Auto) 0.0 x10^3/uL (0.0-0.7) Basophils # (Auto) 0.0 x10^3/uL (0.0-0.2) Sodium Level 145 mmol/L (136-145) Potassium Level 4.6 mmol/L (3.5-5.1) Chloride Level 106 mmol/L (98-107) Carbon Dioxide Level 31 mmol/L (21-32) Anion Gap 8 (6-14) Blood Urea Nitrogen 32 mg/dL (8-26) H Creatinine 1.1 mg/dL (0.7-1.3) Estimated GFR (Cockcroft-Gault) 82.9 BUN/Creatinine Ratio 29 (6-20) H Glucose Level 238 mg/dL (70-99) H Calcium Level 8.3 mg/dL (8.5-10.1) L Total Bilirubin 0.8 mg/dL (0.2-1.0) Aspartate Amino Transferase (AST) 63 U/L (15-37) H Alanine Aminotransferase (ALT) 230 U/L (16-63) H Alkaline Phosphatase 60 U/L (46-116) Total Protein 6.6 g/dL (6.4-8.2) Albumin 2.9 g/dL (3.4-5.0) L Albumin/Globulin Ratio 0.8 (1.0-1.7) L Glucose (Fingerstick) 187 mg/dL (70-99) H Laboratory Tests 12/02/18 04:35 Laboratory Tests 12/02/18 04:35 Meds Current Medications Medications (Trade) Dose Ordered Sig/Logan Route PRN Reason Start Time Stop Time Status Last Admin Dose Admin Insulin Glargine (Lantus Syringe) 20 unit DAILY10 SQ 12/01/18 10:00 12/01/18 10:29 Methylprednisolone Sodium Succinate (SOLU-Medrol 125MG VIAL) 100 mg Q12HR IV 12/01/18 21:00 12/01/18 21:21 Assessment Assessment 1. Acute respiratory failure. The patient is intubated. 2. Acute angioedema, etiology not clear. The patient is supposed to be on lisinopril 10 mg daily and Lipitor 20 mg daily at bedtime and he has also been prescribed Singulair and Flonase previously for allergies. I am not sure what he has taken or currently taking. 3. Hypertension. 4. Hyperlipidemia. 5. Noncompliance. 6. History of diverticulosis. 7. Prediabetes PLAN: Condition and treatment were extensively discussed with the patient and the patient's family. The patient is sedated at this time. Consultation has been obtained with Dr. Winchester and we will see when he can be taken off the sedation and when he can be extubated. We will continue Solu-Medrol 100 mg IV q. 6 hours for now. Check labs in a.m. The patient will need an EpiPen on discharge and likely follow up with the criminal investigator. For details, please refer to the orders. The patient has been admitted to Intensive Care Unit. Angioedema- better Solu-Medrol decreased to 60 mg IV every 8 hours. Hyperglycemia- On sliding scale 4 times a day. Patient also has prediabetes. Add metformin. Hemoglobin A1c 6.4. Blood sugars are not controlled. Increase Lantus to 24 units subcutaneous daily. Acute respiratory failure- On mechanical ventilation. Continue to keep him nothing by mouth except for meds. Extubated yesterday.Advance diet if tolerated Low grade fever- consult . Improving. Elevated LFTs- consult Dr. Pearson. hypertension- start Amlodipine. Condition treatment options discussed with the patient. Plan Plan For more details regarding further plans, please refer to the orders. MAYELA ALLRED MD Dec 02, 2018 09:25
[2018-12-02] MEDS: FAMOTIDINE 20 MG/2 ML VIAL IVP SCH ×2 (09:32→21:16)
[2018-12-02] MEDS: CETIRIZINE HCL 10 MG TABLET. PO SCH ×2 (09:32→09:44)
[2018-12-02] MEDS: metFORMIN 500 MG TABLET PO SCH ×2 (09:32→17:08)
[2018-12-02] MEDS: methylPREDNISolone SOD SUCC PF 125 MG/2 ML VIAL. IV SCH ×2 (09:41→21:16)
--- NOTE | 2018-12-02 10:33 | NUR ---
SS following up with discharge planning. Pt extubated and currently on nasal cannula oxygen. PT/OT ordered. SS will await PT/OT evaluations and recommendations and will proceed accordingly.
--- NOTE | 2018-12-02 10:47 | PDOC2 ---
GI CONSULT Reason For Consult: Elevated LFTs HPI: HPI: 58 y/o male admitted 11/25 w/ resp failure and angioedema though related to lisinopril. Extubated yesterday. We are asked to see re: abnormal LFTs - AST and ALT were slightly elevated at 68 when admitted, then normalized, elevated AST 76 and ALT 125 on 11/30, and today AST 63 w/ ALT 230. Bili and Alk Phos have been normal. Viral hepatitis serologies were negative. Drowsy this morning - nurse reports some exertional dyspnea, has tolerated clear liquids w/ plans for [employer] OF [employer] eval. He denies reflux/heartburn, dysphagia, n/v, abd pain, diarrhea, constipation, hematochezia, melena, change in appetite, and weight loss. No previous EGD. H&P suggests colonoscopy in 2010 showed diverticulosis and internal hemorrhoids. Denies GB, liver, pancreas, and PUD history. No NSAIDs. PMH: PMH: HTN, HLD, allergic rhinitis, pre-DM lipoma removal, muscle tear repair FH: Family History: Cancer (pancreatic, brast, lung), CAD, DM Social History: Smoke: Quit ALCOHOL: none Drugs: None ROS: GEN: Denies fevers, chills, sweats HEENT: Denies blurred vision, sore throat CV: Denies chest pain RESP: +SOA GI: Per HPI : Denies hematuria, dysuria ENDO: Denies weight changes NEURO: Denies confusion, dizziness MSK: Denies weakness, joint pain/swelling SKIN: Denies jaundice, pruritus Vitals: Vitals: Vital Signs Date Time Temp Pulse Resp B/P (MAP) Pulse Ox O2 Delivery O2 Flow Rate FiO2 12/02/18 10:08 82 29 159/73 (101) 91 Nasal Cannula 2.0 12/02/18 08:00 98.5 98.5 Labs: Labs: Laboratory Tests Test 12/01/18 12:35 12/01/18 18:45 12/02/18 00:17 12/02/18 04:35 Glucose (Fingerstick) 264 mg/dL (70-99) 155 mg/dL (70-99) 231 mg/dL (70-99) White Blood Count 14.5 x10^3/uL (4.0-11.0) Red Blood Count 5.65 x10^6/uL (4.30-5.70) Hemoglobin 15.4 g/dL (13.0-17.5) Hematocrit 47.0 % (39.0-53.0) Mean Corpuscular Volume 83 fL (79-100) Mean Corpuscular Hemoglobin 27 pg (25-35) Mean Corpuscular Hemoglobin Concent 33 g/dL (31-37) Red Cell Distribution Width 15.1 % (11.5-14.5) Platelet Count 211 x10^3/uL (140-400) Neutrophils (%) (Auto) 81 % (31-73) Lymphocytes (%) (Auto) 12 % (24-48) Monocytes (%) (Auto) 7 % (0-9) Eosinophils (%) (Auto) 0 % (0-3) Basophils (%) (Auto) 0 % (0-3) Neutrophils # (Auto) 11.7 x10^3/uL (1.8-7.7) Lymphocytes # (Auto) 1.7 x10^3/uL (1.0-4.8) Monocytes # (Auto) 1.1 x10^3/uL (0.0-1.1) Eosinophils # (Auto) 0.0 x10^3/uL (0.0-0.7) Basophils # (Auto) 0.0 x10^3/uL (0.0-0.2) Sodium Level 145 mmol/L (136-145) Potassium Level 4.6 mmol/L (3.5-5.1) Chloride Level 106 mmol/L (98-107) Carbon Dioxide Level 31 mmol/L (21-32) Anion Gap 8 (6-14) Blood Urea Nitrogen 32 mg/dL (8-26) Creatinine 1.1 mg/dL (0.7-1.3) Estimated GFR (Cockcroft-Gault) 82.9 BUN/Creatinine Ratio 29 (6-20) Glucose Level 238 mg/dL (70-99) Calcium Level 8.3 mg/dL (8.5-10.1) Total Bilirubin 0.8 mg/dL (0.2-1.0) Aspartate Amino Transf (AST/SGOT) 63 U/L (15-37) Alanine Aminotransferase (ALT/SGPT) 230 U/L (16-63) Alkaline Phosphatase 60 U/L (46-116) Total Protein 6.6 g/dL (6.4-8.2) Albumin 2.9 g/dL (3.4-5.0) Albumin/Globulin Ratio 0.8 (1.0-1.7) Test 12/02/18 06:19 Glucose (Fingerstick) 187 mg/dL (70-99) Allergies: Coded Allergies: lisinopril (Verified Allergy, Severe, Swelling, 11/26/18) Medications: Current Medications Medications (Trade) Dose Ordered Sig/Logan Route PRN Reason Start Time Stop Time Status Last Admin Dose Admin Methylprednisolone Sodium Succinate (SOLU-Medrol 125MG VIAL) 100 mg Q12HR IV 12/01/18 21:00 12/02/18 09:41 Imaging: Imaging: CXR 12/01 IMPRESSION: 1. Life support devices as above. 2. Unchanged low lung volumes and bibasilar atelectasis or infiltrates. KUB 12/01 Impression: Interval advancement of the OG tube. PE: GEN: NAD - up in recliner HEENT: Atraumatic, PERRL LUNGS: NC 2L HEART: RRR ABD: NABS, S/ND/NT EXTREMITY: No edema SKIN: No rashes, no jaundice NEURO/PSYCH: A & O 3 A/P: A/P: Resp failure/angioedema Elevated AST and ALT CRC screen - UTD Diverticulosis, hemorrhoids -- Check abd US, follow LFTs. AJIT ELIZONDO Dec 02, 2018 10:46
--- NOTE | 2018-12-02 10:54 | PDOC ---
PULMONARY PROGRESS NOTES Subjective EXTUBATED 12/01 NOW SORE THROAT NO RESP DISTRESS Vitals Vital Signs Date Time Temp Pulse Resp B/P (MAP) Pulse Ox O2 Delivery O2 Flow Rate FiO2 12/02/18 10:08 82 29 159/73 (101) 91 Nasal Cannula 2.0 12/02/18 08:00 98.5 98.5 ROS: No Nausea, No Chest Pain, No Abdominal Pain General: Alert HEENT: Other (TOUNGE DECREASE SWELLING) Lungs: Clear Cardiovascular: S1, S2 Abdomen: Soft, Non-tender, Other (no mass) Extremities: No Edema Skin: Warm Labs Laboratory Tests Test 11/30/18 13:47 11/30/18 18:37 11/30/18 23:48 12/01/18 04:20 Glucose (Fingerstick) 276 mg/dL (70-99) 302 mg/dL (70-99) 227 mg/dL (70-99) Sodium Level 141 mmol/L (136-145) Potassium Level 4.5 mmol/L (3.5-5.1) Chloride Level 102 mmol/L (98-107) Carbon Dioxide Level 26 mmol/L (21-32) Anion Gap 13 (6-14) Blood Urea Nitrogen 32 mg/dL (8-26) Creatinine 1.1 mg/dL (0.7-1.3) Estimated GFR (Cockcroft-Gault) 82.9 Glucose Level 292 mg/dL (70-99) Calcium Level 7.9 mg/dL (8.5-10.1) Test 12/01/18 06:18 12/01/18 07:00 12/01/18 10:25 12/01/18 12:35 Glucose (Fingerstick) 243 mg/dL (70-99) 234 mg/dL (70-99) 264 mg/dL (70-99) O2 Saturation 97 % (92-99) Arterial Blood pH 7.41 (7.35-7.45) Arterial Blood pCO2 at Patient Temp 49 mmHg (35-46) Arterial Blood pO2 at Patient Temp 93 mmHg (65-108) Arterial Blood HCO3 31 mmol/L (21-28) Arterial Blood Base Excess 5 mmol/L (-3-3) FiO2 40 Test 12/01/18 18:45 12/02/18 00:17 12/02/18 04:35 12/02/18 06:19 Glucose (Fingerstick) 155 mg/dL (70-99) 231 mg/dL (70-99) 187 mg/dL (70-99) White Blood Count 14.5 x10^3/uL (4.0-11.0) Red Blood Count 5.65 x10^6/uL (4.30-5.70) Hemoglobin 15.4 g/dL (13.0-17.5) Hematocrit 47.0 % (39.0-53.0) Mean Corpuscular Volume 83 fL (79-100) Mean Corpuscular Hemoglobin 27 pg (25-35) Mean Corpuscular Hemoglobin Concent 33 g/dL (31-37) Red Cell Distribution Width 15.1 % (11.5-14.5) Platelet Count 211 x10^3/uL (140-400) Neutrophils (%) (Auto) 81 % (31-73) Lymphocytes (%) (Auto) 12 % (24-48) Monocytes (%) (Auto) 7 % (0-9) Eosinophils (%) (Auto) 0 % (0-3) Basophils (%) (Auto) 0 % (0-3) Neutrophils # (Auto) 11.7 x10^3/uL (1.8-7.7) Lymphocytes # (Auto) 1.7 x10^3/uL (1.0-4.8) Monocytes # (Auto) 1.1 x10^3/uL (0.0-1.1) Eosinophils # (Auto) 0.0 x10^3/uL (0.0-0.7) Basophils # (Auto) 0.0 x10^3/uL (0.0-0.2) Sodium Level 145 mmol/L (136-145) Potassium Level 4.6 mmol/L (3.5-5.1) Chloride Level 106 mmol/L (98-107) Carbon Dioxide Level 31 mmol/L (21-32) Anion Gap 8 (6-14) Blood Urea Nitrogen 32 mg/dL (8-26) Creatinine 1.1 mg/dL (0.7-1.3) Estimated GFR (Cockcroft-Gault) 82.9 BUN/Creatinine Ratio 29 (6-20) Glucose Level 238 mg/dL (70-99) Calcium Level 8.3 mg/dL (8.5-10.1) Total Bilirubin 0.8 mg/dL (0.2-1.0) Aspartate Amino Transf (AST/SGOT) 63 U/L (15-37) Alanine Aminotransferase (ALT/SGPT) 230 U/L (16-63) Alkaline Phosphatase 60 U/L (46-116) Total Protein 6.6 g/dL (6.4-8.2) Albumin 2.9 g/dL (3.4-5.0) Albumin/Globulin Ratio 0.8 (1.0-1.7) Laboratory Tests Test 12/01/18 12:35 12/01/18 18:45 12/02/18 00:17 12/02/18 04:35 Glucose (Fingerstick) 264 mg/dL (70-99) 155 mg/dL (70-99) 231 mg/dL (70-99) White Blood Count 14.5 x10^3/uL (4.0-11.0) Red Blood Count 5.65 x10^6/uL (4.30-5.70) Hemoglobin 15.4 g/dL (13.0-17.5) Hematocrit 47.0 % (39.0-53.0) Mean Corpuscular Volume 83 fL (79-100) Mean Corpuscular Hemoglobin 27 pg (25-35) Mean Corpuscular Hemoglobin Concent 33 g/dL (31-37) Red Cell Distribution Width 15.1 % (11.5-14.5) Platelet Count 211 x10^3/uL (140-400) Neutrophils (%) (Auto) 81 % (31-73) Lymphocytes (%) (Auto) 12 % (24-48) Monocytes (%) (Auto) 7 % (0-9) Eosinophils (%) (Auto) 0 % (0-3) Basophils (%) (Auto) 0 % (0-3) Neutrophils # (Auto) 11.7 x10^3/uL (1.8-7.7) Lymphocytes # (Auto) 1.7 x10^3/uL (1.0-4.8) Monocytes # (Auto) 1.1 x10^3/uL (0.0-1.1) Eosinophils # (Auto) 0.0 x10^3/uL (0.0-0.7) Basophils # (Auto) 0.0 x10^3/uL (0.0-0.2) Sodium Level 145 mmol/L (136-145) Potassium Level 4.6 mmol/L (3.5-5.1) Chloride Level 106 mmol/L (98-107) Carbon Dioxide Level 31 mmol/L (21-32) Anion Gap 8 (6-14) Blood Urea Nitrogen 32 mg/dL (8-26) Creatinine 1.1 mg/dL (0.7-1.3) Estimated GFR (Cockcroft-Gault) 82.9 BUN/Creatinine Ratio 29 (6-20) Glucose Level 238 mg/dL (70-99) Calcium Level 8.3 mg/dL (8.5-10.1) Total Bilirubin 0.8 mg/dL (0.2-1.0) Aspartate Amino Transf (AST/SGOT) 63 U/L (15-37) Alanine Aminotransferase (ALT/SGPT) 230 U/L (16-63) Alkaline Phosphatase 60 U/L (46-116) Total Protein 6.6 g/dL (6.4-8.2) Albumin 2.9 g/dL (3.4-5.0) Albumin/Globulin Ratio 0.8 (1.0-1.7) Test 12/02/18 06:19 Glucose (Fingerstick) 187 mg/dL (70-99) Medications Active Scripts Medications Dose Route/Sig Max Daily Dose Days Date Category Amoxicillin 500 Mg Capsule 2 Cap PO BID 04/19/17 Rx Impression . IMPRESSION: 1. Acute respiratory failure secondary to angioedema. RESOLVED 2. ALICIA inhibitor related angioedema. 3. Abnormal x-ray SUSPECT ATELECTASIS DIFFICULT TO RULE OUT PNEUMONIA 4. Hypertension. CXR IMPRESSION: 1. Life support devices as above. 2. Unchanged low lung volumes and bibasilar atelectasis or infiltrates. Plan . UP TO CHAIR PT OUT OF ICU DECREASE STEROIDS D/C ANTIHISTAMINE d/w family at bedside ANTI BX PER ID CCT 30 MIN FORMULATING A PLAN, REVIEWING DATA/CXRAYS/AND LABS GAVIN CASTRO MD Dec 02, 2018 10:54
[2018-12-02] MEDS: amLODIPine BESYLATE 5 MG TABLET PO SCH (11:21)
[2018-12-02] MEDS: INSULIN GLARGINE SYRINGE. SQ SCH (11:51)
--- NOTE | 2018-12-02 14:50 | NUR ---
[id number] Activated to bedside bathroom. Weak/unsteady on feet. Able to bear weight but supervision required. To chair w bedside swallow assist. Clear liquids introduced w/o adverse issues. Able to doze at intervals in chair. [place] in late am w completion of ordered study. No restrictions,BUT reminder needed to drink smaller quantities /slower. Lunch w diminished appetite after 600 ml clear liquids earlier. [place] RML. Discussed "preventative measures " to clear area.". Prompting to C/DB needed at this time.
--- NOTE | 2018-12-02 14:57 | NUR ---
1300 PT in room . Patient able to amb entire round w improved mobility/fluidity at end. Transported to 426 per WC after phone report. Angioedema cleared ,RA now . Reinforced need to C/DB independently. All clothes ,shoes and hospital items as well as cell phone/ice cream scooper w pt on transfer
[2018-12-02] MEDS: MONTELUKAST SODIUM 10 MG TABLET. PO SCH (21:16)
--- NOTE | 2018-12-03 00:09 | RAD ---
Ultrasound of the abdomen 12/02/2018 CLINICAL HISTORY: Elevated liver function tests. TECHNIQUE: A real-time ultrasound examination of the abdomen was performed. Multiple images were obtained. FINDINGS: Comparison is made to the patient's CT scan of the abdomen dated 08/16/2013. The gallbladder is well-distended. No gallstones are visualized. The gallbladder wall thickness is within normal limits. No pericholecystic fluid is seen. The common bile duct measures 6 mm in diameter which is within normal limits. The liver is normal in size measuring 17.1 cm in length. Increased echogenicity of the liver parenchyma is seen consistent with fatty infiltration. The spleen, visualized portions of pancreas and kidneys are within normal limits. The abdominal aorta tapers normally. The inferior vena cava is within normal limits. Food debris is seen within the stomach. No free fluid is noted. IMPRESSION: Fatty infiltration of the liver. Electronically signed by: Michele Patel MD (12/03/2018 12:06 AM) [facility]
[2018-12-03] MEDS: INSULIN LISPRO 300 UNITS/3 ML VIAL. SQ SCH ×4 (00:15→17:00)
[2018-12-03 03:00] VITALS: BP 162/91
[2018-12-03 05:07] LABS: BASO % 0 % (0-3); EOS % 0 % (0-3); HEMATOCRIT 49.3 % (39.0-53.0); HEMOGLOBIN 16.1 g/dL (13.0-17.5); LYMPH # 1.6 x10^3/uL (1.0-4.8); LYMPH % 11 % (24-48); MEAN CORPUSCULAR HEMOGLOBIN 27 pg (25-35); MEAN CORPUSCULAR HGB CONC 33 g/dL (31-37); MEAN CORPUSCULAR VOLUME 83 fL (79-100); MONO # 0.9 x10^3/uL (0.0-1.1); MONO % 6 % (0-9); NEUT # 12.3 x10^3/uL (1.8-7.7); NEUT % 83 % (31-73); PLATELET COUNT 210 x10^3/uL (140-400); RED BLOOD COUNT 5.94 x10^6/uL (4.30-5.70); RED CELL DISTRIBUTION WIDTH 15.1 % (11.5-14.5); WHITE BLOOD COUNT 14.8 x10^3/uL (4.0-11.0)
[2018-12-03 05:38] LABS: ALBUMIN 3.2 g/dL (3.4-5.0); ALBUMIN/GLOBULIN RATIO 0.9 (1.0-1.7); CALCIUM 8.8 mg/dL (8.5-10.1); GFR 92.5; POTASSIUM 4.5 mmol/L (3.5-5.1); TOTAL PROTEIN 6.8 g/dL (6.4-8.2)
[2018-12-03] MEDS: HEPARIN for SUB-Q USE 5,000 UNIT/ML VIAL. SQ SCH ×3 (06:28→22:14)
[2018-12-03 07:00] VITALS: BP 162/91
[2018-12-03] MEDS: IPRATRPIUM/ALBUTEROL 0.5/2.5MG 3 ML NEBU. NEB SCH ×4 (07:24→20:02)
[2018-12-03] MEDS: FAMOTIDINE 20 MG/2 ML VIAL IVP SCH (08:04)
[2018-12-03] MEDS: metFORMIN 500 MG TABLET PO SCH ×2 (08:05→17:30)
[2018-12-03] MEDS: amLODIPine BESYLATE 5 MG TABLET PO SCH (08:05)
[2018-12-03] MEDS: methylPREDNISolone SOD SUCC PF 125 MG/2 ML VIAL. IV SCH (08:05)
--- NOTE | 2018-12-03 08:51 | PDOC ---
Infectious Disease Note Subjective: Subjective Pt says feels ok some throat soreness but no dysphagia no tongue swelling or soreness in the mouth no f/c/n/v/d/sob or cough ROS: ROS Negative otherwise. Vital Signs: Vital Signs Vital Signs Date Time Temp Pulse Resp B/P (MAP) Pulse Ox O2 Delivery O2 Flow Rate FiO2 12/03/18 08:05 93 162/91 12/03/18 07:13 92 Room Air 12/03/18 07:00 97.6 20 97.6 12/02/18 11:22 2.0 Physical Exam: PHYSICAL EXAM GENERAL: axoxo3 male in nad sitting in chair HEENT: Anicteric. no oral lesions,dentition good, tongue no swelling NECK: Supple. no jvd, no lad LUNGS: Decreased breath sounds at the bases mainly on RT, otherwise clear. HEART: S1, S2 regular. ABDOMEN: Soft, nontender, nondistended. GENITOURINARY: Chow in place. EXTREMITIES: No edema. DERMATOLOGIC: Warm, dry. No generalized rash. NEUROLOGIC: nonfocal grossly Medications: Inpatient Meds: Current Medications Medications (Trade) Dose Ordered Sig/Logan Start Time Stop Time Status Last Admin Dose Admin Acetaminophen (Tylenol) 650 mg PRN Q4HRS PRN 11/25/18 22:45 Albuterol/ Ipratropium (Duoneb) 3 ml RTQID 11/27/18 16:00 12/03/18 07:24 3 ML Amlodipine Besylate (Norvasc) 5 mg DAILY 12/03/18 09:00 UNV Cetirizine HCl (ZyrTEC) 10 mg DAILY 11/26/18 12:00 12/02/18 09:44 10 MG Chlorhexidine Gluconate (Peridex) 15 ml BID 11/26/18 09:00 11/26/18 10:21 DC Dextrose/Sodium Chloride 1,000 ml @ 75 mls/hr [id number] 11/26/18 11:00 11/26/18 19:34 DC 11/26/18 11:15 75 MLS/HR Diphenhydramine HCl (Benadryl) 25 mg Q4HRS 11/26/18 00:00 12/01/18 12:19 DC 12/01/18 08:05 25 MG Epinephrine HCl (Adrenalin) 0.3 mg PRN Q5MIN PRN 11/25/18 22:45 Etomidate (Amidate) 20 mg 1X ONCE 11/25/18 20:19 11/25/18 22:28 DC 11/25/18 20:19 20 MG Famotidine (Pepcid Vial) 20 mg BID 11/26/18 21:00 12/03/18 08:04 20 MG Fentanyl Citrate 30 ml @ 0 mls/hr CONT PRN 11/25/18 22:45 12/02/18 13:44 DC 12/01/18 03:54 2.5 MLS/HR Fentanyl Citrate (Fentanyl 2ml Vial) 50 mcg PRN Q1HR PRN 11/25/18 20:45 12/02/18 13:45 DC 11/28/18 12:03 50 MCG Furosemide (Lasix) 20 mg 1X ONCE 11/29/18 06:30 11/29/18 06:31 DC 11/29/18 06:52 20 MG Heparin Sodium (Porcine) (Heparin Sodium) 5,000 unit Q8HRS 11/26/18 06:00 12/03/18 06:28 5,000 UNIT Hydralazine HCl (Apresoline Inj) 10 mg PRN Q4HRS PRN 11/29/18 12:45 UNV Insulin Glargine (Lantus Syringe) 20 unit [id number] 12/01/18 10:00 12/02/18 11:51 20 UNIT Insulin Human Lispro (HumaLOG) 0-10 UNITS Q6HRS 11/30/18 12:00 12/03/18 00:15 2 UNITS Metformin HCl (Glucophage) 500 mg [id number] 11/27/18 10:00 12/03/18 08:05 500 MG Methylprednisolone Sodium Succinate (SOLU-Medrol 40MG VIAL) 100 mg Q6HRS 11/26/18 12:00 11/26/18 12:14 DC Methylprednisolone Sodium Succinate (SOLU-Medrol 125MG VIAL) 100 mg Q12HR 12/01/18 21:00 12/03/18 08:05 100 MG Midazolam HCl (Versed) 5 mg STK-MED ONCE 11/26/18 16:00 11/27/18 09:06 DC Montelukast Sodium (Singulair) 10 mg QHS 11/26/18 21:00 12/02/18 21:16 10 MG Ondansetron HCl (Zofran) 4 mg PRN Q8HRS PRN 11/25/18 21:15 11/26/18 21:14 DC Potassium Chloride/Sodium Chloride 1,000 ml @ 75 mls/hr [id number] 11/27/18 09:30 11/29/18 06:09 DC 11/29/18 03:40 75 MLS/HR Propofol (Diprivan) 100 mg 1X ONCE 11/25/18 21:12 11/25/18 22:32 DC 11/25/18 21:12 100 MG Rocuronium [place] (Zemuron) 50 mg 1X ONCE 11/25/18 20:29 11/25/18 22:32 DC 11/25/18 20:29 50 MG Sodium Bicarbonate 150 meq/Dextrose 1,150 ml @ 125 mls/hr [id number] 11/28/18 15:00 Cancel Sodium Chloride 1,000 ml @ 75 mls/hr [id number] 11/26/18 21:00 11/27/18 09:24 DC 11/27/18 08:19 75 MLS/HR Succinylcholine Chloride (Anectine) 100 mg 1X ONCE 11/25/18 22:30 11/25/18 22:32 DC 11/25/18 20:20 100 MG Labs: Lab Laboratory Tests Test 12/02/18 11:46 12/02/18 16:41 12/02/18 20:51 12/03/18 00:09 Glucose (Fingerstick) 231 mg/dL (70-99) 184 mg/dL (70-99) 141 mg/dL (70-99) 229 mg/dL (70-99) Test 12/03/18 04:45 White Blood Count 14.8 x10^3/uL (4.0-11.0) Red Blood Count 5.94 x10^6/uL (4.30-5.70) Hemoglobin 16.1 g/dL (13.0-17.5) Hematocrit 49.3 % (39.0-53.0) Mean Corpuscular Volume 83 fL (79-100) Mean Corpuscular Hemoglobin 27 pg (25-35) Mean Corpuscular Hemoglobin Concent 33 g/dL (31-37) Red Cell Distribution Width 15.1 % (11.5-14.5) Platelet Count 210 x10^3/uL (140-400) Neutrophils (%) (Auto) 83 % (31-73) Lymphocytes (%) (Auto) 11 % (24-48) Monocytes (%) (Auto) 6 % (0-9) Eosinophils (%) (Auto) 0 % (0-3) Basophils (%) (Auto) 0 % (0-3) Neutrophils # (Auto) 12.3 x10^3/uL (1.8-7.7) Lymphocytes # (Auto) 1.6 x10^3/uL (1.0-4.8) Monocytes # (Auto) 0.9 x10^3/uL (0.0-1.1) Eosinophils # (Auto) 0.0 x10^3/uL (0.0-0.7) Basophils # (Auto) 0.0 x10^3/uL (0.0-0.2) Sodium Level 141 mmol/L (136-145) Potassium Level 4.5 mmol/L (3.5-5.1) Chloride Level 102 mmol/L (98-107) Carbon Dioxide Level 28 mmol/L (21-32) Anion Gap 11 (6-14) Blood Urea Nitrogen 35 mg/dL (8-26) Creatinine 1.0 mg/dL (0.7-1.3) Estimated GFR (Cockcroft-Gault) 92.5 BUN/Creatinine Ratio 35 (6-20) Glucose Level 224 mg/dL (70-99) Calcium Level 8.8 mg/dL (8.5-10.1) Total Bilirubin 1.0 mg/dL (0.2-1.0) Aspartate Amino Transf (AST/SGOT) 71 U/L (15-37) Alanine Aminotransferase (ALT/SGPT) 289 U/L (16-63) Alkaline Phosphatase 75 U/L (46-116) Total Protein 6.8 g/dL (6.4-8.2) Albumin 3.2 g/dL (3.4-5.0) Albumin/Globulin Ratio 0.9 (1.0-1.7) Objective: Assessment: 1. Acute respiratory failure, extubated 2. Acute angioedema, etiology unclear, supposed to be on lisinopril. 3. Low-grade fever, likely from atelectasis. now resolved 4. Hyperlipidemia/htn 5. History of diverticulosis. 6. Leukocytosis, on steroids. 7. Sore throat likely from recent intubation Plan: Plan of Care monitor off antibiotics supportive care D/W KAJAL ERICKSON MD Dec 03, 2018 08:51
[2018-12-03] MEDS ORDERED: amLODIPine BESYLATE 5 MG TABLET PO SCH (09:00)
--- NOTE | 2018-12-03 09:26 | PDOC ---
PULMONARY PROGRESS NOTES Subjective EXTUBATED 12/01 NOW SORE THROAT NO RESP DISTRESS Vitals Vital Signs Date Time Temp Pulse Resp B/P (MAP) Pulse Ox O2 Delivery O2 Flow Rate FiO2 12/03/18 08:05 93 162/91 12/03/18 07:13 92 Room Air 12/03/18 07:00 97.6 20 97.6 12/02/18 11:22 2.0 ROS: No Nausea, No Chest Pain, No Abdominal Pain General: Alert HEENT: Other (TOUNGE DECREASE SWELLING) Lungs: Clear Cardiovascular: S1, S2 Abdomen: Soft, Non-tender, Other (no mass) Extremities: No Edema Skin: Warm Labs Laboratory Tests Test 12/01/18 10:25 12/01/18 12:35 12/01/18 18:45 12/02/18 00:17 Glucose (Fingerstick) 234 mg/dL (70-99) 264 mg/dL (70-99) 155 mg/dL (70-99) 231 mg/dL (70-99) Test 12/02/18 04:35 12/02/18 06:19 12/02/18 11:46 12/02/18 16:41 White Blood Count 14.5 x10^3/uL (4.0-11.0) Red Blood Count 5.65 x10^6/uL (4.30-5.70) Hemoglobin 15.4 g/dL (13.0-17.5) Hematocrit 47.0 % (39.0-53.0) Mean Corpuscular Volume 83 fL (79-100) Mean Corpuscular Hemoglobin 27 pg (25-35) Mean Corpuscular Hemoglobin Concent 33 g/dL (31-37) Red Cell Distribution Width 15.1 % (11.5-14.5) Platelet Count 211 x10^3/uL (140-400) Neutrophils (%) (Auto) 81 % (31-73) Lymphocytes (%) (Auto) 12 % (24-48) Monocytes (%) (Auto) 7 % (0-9) Eosinophils (%) (Auto) 0 % (0-3) Basophils (%) (Auto) 0 % (0-3) Neutrophils # (Auto) 11.7 x10^3/uL (1.8-7.7) Lymphocytes # (Auto) 1.7 x10^3/uL (1.0-4.8) Monocytes # (Auto) 1.1 x10^3/uL (0.0-1.1) Eosinophils # (Auto) 0.0 x10^3/uL (0.0-0.7) Basophils # (Auto) 0.0 x10^3/uL (0.0-0.2) Sodium Level 145 mmol/L (136-145) Potassium Level 4.6 mmol/L (3.5-5.1) Chloride Level 106 mmol/L (98-107) Carbon Dioxide Level 31 mmol/L (21-32) Anion Gap 8 (6-14) Blood Urea Nitrogen 32 mg/dL (8-26) Creatinine 1.1 mg/dL (0.7-1.3) Estimated GFR (Cockcroft-Gault) 82.9 BUN/Creatinine Ratio 29 (6-20) Glucose Level 238 mg/dL (70-99) Calcium Level 8.3 mg/dL (8.5-10.1) Total Bilirubin 0.8 mg/dL (0.2-1.0) Aspartate Amino Transf (AST/SGOT) 63 U/L (15-37) Alanine Aminotransferase (ALT/SGPT) 230 U/L (16-63) Alkaline Phosphatase 60 U/L (46-116) Total Protein 6.6 g/dL (6.4-8.2) Albumin 2.9 g/dL (3.4-5.0) Albumin/Globulin Ratio 0.8 (1.0-1.7) Glucose (Fingerstick) 187 mg/dL (70-99) 231 mg/dL (70-99) 184 mg/dL (70-99) Test 12/02/18 20:51 12/03/18 00:09 12/03/18 04:45 Glucose (Fingerstick) 141 mg/dL (70-99) 229 mg/dL (70-99) White Blood Count 14.8 x10^3/uL (4.0-11.0) Red Blood Count 5.94 x10^6/uL (4.30-5.70) Hemoglobin 16.1 g/dL (13.0-17.5) Hematocrit 49.3 % (39.0-53.0) Mean Corpuscular Volume 83 fL (79-100) Mean Corpuscular Hemoglobin 27 pg (25-35) Mean Corpuscular Hemoglobin Concent 33 g/dL (31-37) Red Cell Distribution Width 15.1 % (11.5-14.5) Platelet Count 210 x10^3/uL (140-400) Neutrophils (%) (Auto) 83 % (31-73) Lymphocytes (%) (Auto) 11 % (24-48) Monocytes (%) (Auto) 6 % (0-9) Eosinophils (%) (Auto) 0 % (0-3) Basophils (%) (Auto) 0 % (0-3) Neutrophils # (Auto) 12.3 x10^3/uL (1.8-7.7) Lymphocytes # (Auto) 1.6 x10^3/uL (1.0-4.8) Monocytes # (Auto) 0.9 x10^3/uL (0.0-1.1) Eosinophils # (Auto) 0.0 x10^3/uL (0.0-0.7) Basophils # (Auto) 0.0 x10^3/uL (0.0-0.2) Sodium Level 141 mmol/L (136-145) Potassium Level 4.5 mmol/L (3.5-5.1) Chloride Level 102 mmol/L (98-107) Carbon Dioxide Level 28 mmol/L (21-32) Anion Gap 11 (6-14) Blood Urea Nitrogen 35 mg/dL (8-26) Creatinine 1.0 mg/dL (0.7-1.3) Estimated GFR (Cockcroft-Gault) 92.5 BUN/Creatinine Ratio 35 (6-20) Glucose Level 224 mg/dL (70-99) Calcium Level 8.8 mg/dL (8.5-10.1) Total Bilirubin 1.0 mg/dL (0.2-1.0) Aspartate Amino Transf (AST/SGOT) 71 U/L (15-37) Alanine Aminotransferase (ALT/SGPT) 289 U/L (16-63) Alkaline Phosphatase 75 U/L (46-116) Total Protein 6.8 g/dL (6.4-8.2) Albumin 3.2 g/dL (3.4-5.0) Albumin/Globulin Ratio 0.9 (1.0-1.7) Laboratory Tests Test 12/02/18 11:46 12/02/18 16:41 12/02/18 20:51 12/03/18 00:09 Glucose (Fingerstick) 231 mg/dL (70-99) 184 mg/dL (70-99) 141 mg/dL (70-99) 229 mg/dL (70-99) Test 12/03/18 04:45 White Blood Count 14.8 x10^3/uL (4.0-11.0) Red Blood Count 5.94 x10^6/uL (4.30-5.70) Hemoglobin 16.1 g/dL (13.0-17.5) Hematocrit 49.3 % (39.0-53.0) Mean Corpuscular Volume 83 fL (79-100) Mean Corpuscular Hemoglobin 27 pg (25-35) Mean Corpuscular Hemoglobin Concent 33 g/dL (31-37) Red Cell Distribution Width 15.1 % (11.5-14.5) Platelet Count 210 x10^3/uL (140-400) Neutrophils (%) (Auto) 83 % (31-73) Lymphocytes (%) (Auto) 11 % (24-48) Monocytes (%) (Auto) 6 % (0-9) Eosinophils (%) (Auto) 0 % (0-3) Basophils (%) (Auto) 0 % (0-3) Neutrophils # (Auto) 12.3 x10^3/uL (1.8-7.7) Lymphocytes # (Auto) 1.6 x10^3/uL (1.0-4.8) Monocytes # (Auto) 0.9 x10^3/uL (0.0-1.1) Eosinophils # (Auto) 0.0 x10^3/uL (0.0-0.7) Basophils # (Auto) 0.0 x10^3/uL (0.0-0.2) Sodium Level 141 mmol/L (136-145) Potassium Level 4.5 mmol/L (3.5-5.1) Chloride Level 102 mmol/L (98-107) Carbon Dioxide Level 28 mmol/L (21-32) Anion Gap 11 (6-14) Blood Urea Nitrogen 35 mg/dL (8-26) Creatinine 1.0 mg/dL (0.7-1.3) Estimated GFR (Cockcroft-Gault) 92.5 BUN/Creatinine Ratio 35 (6-20) Glucose Level 224 mg/dL (70-99) Calcium Level 8.8 mg/dL (8.5-10.1) Total Bilirubin 1.0 mg/dL (0.2-1.0) Aspartate Amino Transf (AST/SGOT) 71 U/L (15-37) Alanine Aminotransferase (ALT/SGPT) 289 U/L (16-63) Alkaline Phosphatase 75 U/L (46-116) Total Protein 6.8 g/dL (6.4-8.2) Albumin 3.2 g/dL (3.4-5.0) Albumin/Globulin Ratio 0.9 (1.0-1.7) Medications Active Scripts Medications Dose Route/Sig Max Daily Dose Days Date Category Amoxicillin 500 Mg Capsule 2 Cap PO BID 04/19/17 Rx Impression . IMPRESSION: 1. Acute respiratory failure secondary to angioedema. RESOLVED 2. ALICIA inhibitor related angioedema. 3. Abnormal x-ray SUSPECT ATELECTASIS DIFFICULT TO RULE OUT PNEUMONIA 4. Hypertension. CXR IMPRESSION: 1. Life support devices as above. 2. Unchanged low lung volumes and bibasilar atelectasis or infiltrates. Plan . SPOKE WITH DR BRIGIDA SANDRA D/C IN AM DECREASE STEROIDS D/C ANTIHISTAMINE d/w family at bedside ANTI BX PER GAVIN MILLER MD Dec 03, 2018 09:26
--- NOTE | 2018-12-03 09:32 | PDOC ---
Subjective: Subjective: Not much appetite, the food isn't appealing. No n/v, no abd pain. Stooling. Objective: Objective: Nurse says not eating. Vital Signs: Vital Signs Date Time Temp Pulse Resp B/P (MAP) Pulse Ox O2 Delivery O2 Flow Rate FiO2 12/03/18 08:05 93 162/91 12/03/18 07:13 92 Room Air 12/03/18 07:00 97.6 20 97.6 12/02/18 11:22 2.0 Labs: Laboratory Tests Test 12/02/18 11:46 12/02/18 16:41 12/02/18 20:51 12/03/18 00:09 Glucose (Fingerstick) 231 mg/dL 184 mg/dL 141 mg/dL 229 mg/dL Test 12/03/18 04:45 White Blood Count 14.8 x10^3/uL Red Blood Count 5.94 x10^6/uL Hemoglobin 16.1 g/dL Hematocrit 49.3 % Mean Corpuscular Volume 83 fL Mean Corpuscular Hemoglobin 27 pg Mean Corpuscular Hemoglobin Concent 33 g/dL Red Cell Distribution Width 15.1 % Platelet Count 210 x10^3/uL Neutrophils (%) (Auto) 83 % Lymphocytes (%) (Auto) 11 % Monocytes (%) (Auto) 6 % Eosinophils (%) (Auto) 0 % Basophils (%) (Auto) 0 % Neutrophils # (Auto) 12.3 x10^3/uL Lymphocytes # (Auto) 1.6 x10^3/uL Monocytes # (Auto) 0.9 x10^3/uL Eosinophils # (Auto) 0.0 x10^3/uL Basophils # (Auto) 0.0 x10^3/uL Sodium Level 141 mmol/L Potassium Level 4.5 mmol/L Chloride Level 102 mmol/L Carbon Dioxide Level 28 mmol/L Anion Gap 11 Blood Urea Nitrogen 35 mg/dL Creatinine 1.0 mg/dL Estimated GFR (Cockcroft-Gault) 92.5 BUN/Creatinine Ratio 35 Glucose Level 224 mg/dL Calcium Level 8.8 mg/dL Total Bilirubin 1.0 mg/dL Aspartate Amino Transf (AST/SGOT) 71 U/L Alanine Aminotransferase (ALT/SGPT) 289 U/L Alkaline Phosphatase 75 U/L Total Protein 6.8 g/dL Albumin 3.2 g/dL Albumin/Globulin Ratio 0.9 Imaging: Abd US The gallbladder is well-distended. No gallstones are visualized. The gallbladder wall thickness is within normal limits. No pericholecystic fluid is seen. The common bile duct measures 6 mm in diameter which is within normal limits. The liver is normal in size measuring 17.1 cm in length. Increased echogenicity of the liver parenchyma is seen consistent with fatty infiltration. The spleen, visualized portions of pancreas and kidneys are within normal limits. The abdominal aorta tapers normally. The inferior vena cava is within normal limits. Food debris is seen within the stomach. No free fluid is noted. IMPRESSION: Fatty infiltration of the liver. SUSTAINABILITY DIRECTOR Bedside Swallow Eval See full rpt in interventions. Pt slightly <24hrs p.extubation. Pt w/ ind ications of aspiration when taking large and /or consecutive bolus swallows of thin liquids via cup. None when bolus size reduced and pt instructed to take single sips. No s/s aspiration w/multiple trials of other tested consistencies. IMPRESSIONS: Mild laryngeal dysfunction s/p extubation. Needs to restrict bolus size w/thin liquids. Appears safe to start po diet w/general precautions. Suspect reduced hyolaryngeal excursion c/t reduced airway closure for larger bolus liquids. Anticipate improvement w/additional time s/p extubation. RECOMMENDATIONS: Regular diet w/thin liquids in SINGLE SIPS via cup. Sit up to eat, drink. SUSTAINABILITY DIRECTOR to f/u per POC. DW pt and KAYA Cartagena. PE: GEN: NAD LUNGS: room air HEART: RRR ABD: BS+, round, soft, non-tender NEURO/PSYCH: A & O 3 - drowsy but improved from yesterday A/P: Resp failure/angioedema Elevated AST and ALT - fluctuating Fatty liver Anorexia -- Encouraged PO. Monitor LFTs. 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 AJIT ELIZONDO Dec 03, 2018 09:32
[2018-12-03] MEDS ORDERED: DEXTROSE 50% 25 GM / 50ML DISP.SYRIN. IV PRN (09:45)
--- NOTE | 2018-12-03 09:55 | PDOC ---
IM PROGRESS NOTES- Subjective Subjective Patient extubated yesterday. denies pain,dyspnea.has sore throat,weakness,decreased oral intake. Objective Vitals/I&O Vital Signs Date Time Temp Pulse Resp B/P (MAP) Pulse Ox O2 Delivery O2 Flow Rate FiO2 12/03/18 09:18 Room Air 12/03/18 08:05 93 162/91 12/03/18 07:13 92 12/03/18 07:00 97.6 20 97.6 12/02/18 11:22 2.0 I & O 12/02/18 12/02/18 12/03/18 15:00 23:00 07:00 Intake Total 750 ml 480 ml 240 ml Output Total 675 ml 1000 ml 1600 ml Balance 75 ml -520 ml -1360 ml Physical Exam Physical Exam General appearance - alert,and in no distress and opens eyes. Afebrile Mental Status - alert Head - normal No swelling of the lower lip and tongue. Chest -decreased sounds at bases, extubated Heart - S1 and S2 normal Abdomen - soft, non tender, non distended, Neurological -alert,appropriate Extremities - no pedal edema Skin - warm and dry Labs Laboratory Tests Test 12/02/18 11:46 12/02/18 16:41 12/02/18 20:51 12/03/18 00:09 Glucose (Fingerstick) 231 mg/dL (70-99) H 184 mg/dL (70-99) H 141 mg/dL (70-99) H 229 mg/dL (70-99) H Test 12/03/18 04:45 White Blood Count 14.8 x10^3/uL (4.0-11.0) H Red Blood Count 5.94 x10^6/uL (4.30-5.70) H Hemoglobin 16.1 g/dL (13.0-17.5) Hematocrit 49.3 % (39.0-53.0) Mean Corpuscular Volume 83 fL (79-100) Mean Corpuscular Hemoglobin 27 pg (25-35) Mean Corpuscular Hemoglobin Concent 33 g/dL (31-37) Red Cell Distribution Width 15.1 % (11.5-14.5) H Platelet Count 210 x10^3/uL (140-400) Neutrophils (%) (Auto) 83 % (31-73) H Lymphocytes (%) (Auto) 11 % (24-48) L Monocytes (%) (Auto) 6 % (0-9) Eosinophils (%) (Auto) 0 % (0-3) Basophils (%) (Auto) 0 % (0-3) Neutrophils # (Auto) 12.3 x10^3/uL (1.8-7.7) H Lymphocytes # (Auto) 1.6 x10^3/uL (1.0-4.8) Monocytes # (Auto) 0.9 x10^3/uL (0.0-1.1) Eosinophils # (Auto) 0.0 x10^3/uL (0.0-0.7) Basophils # (Auto) 0.0 x10^3/uL (0.0-0.2) Sodium Level 141 mmol/L (136-145) Potassium Level 4.5 mmol/L (3.5-5.1) Chloride Level 102 mmol/L (98-107) Carbon Dioxide Level 28 mmol/L (21-32) Anion Gap 11 (6-14) Blood Urea Nitrogen 35 mg/dL (8-26) H Creatinine 1.0 mg/dL (0.7-1.3) Estimated GFR (Cockcroft-Gault) 92.5 BUN/Creatinine Ratio 35 (6-20) H Glucose Level 224 mg/dL (70-99) H Calcium Level 8.8 mg/dL (8.5-10.1) Total Bilirubin 1.0 mg/dL (0.2-1.0) Aspartate Amino Transferase (AST) 71 U/L (15-37) H Alanine Aminotransferase (ALT) 289 U/L (16-63) H Alkaline Phosphatase 75 U/L (46-116) Total Protein 6.8 g/dL (6.4-8.2) Albumin 3.2 g/dL (3.4-5.0) L Albumin/Globulin Ratio 0.9 (1.0-1.7) L Laboratory Tests 12/03/18 04:45 Laboratory Tests 12/03/18 04:45 Assessment Assessment 1. Acute respiratory failure. The patient is intubated. 2. Acute angioedema, etiology not clear. The patient is supposed to be on lisinopril 10 mg daily and Lipitor 20 mg daily at bedtime and he has also been prescribed Singulair and Flonase previously for allergies. I am not sure what he has taken or currently taking. 3. Hypertension. 4. Hyperlipidemia. 5. Noncompliance. 6. History of diverticulosis. 7. Prediabetes PLAN: Condition and treatment were extensively discussed with the patient and the patient's family. The patient is sedated at this time. Consultation has been obtained with Dr. Winchester and we will see when he can be taken off the sedation and when he can be extubated. We will continue Solu-Medrol 100 mg IV q. 6 hours for now. Check labs in a.m. The patient will need an EpiPen on discharge and likely follow up with the drafter electrical. For details, please refer to the orders. The patient has been admitted to Intensive Care Unit. Angioedema- better Solu-Medrol discontinue and observe.May need oral steroids. Hyperglycemia- On sliding scale 4 times a day. Patient also has prediabetes. Add metformin. Hemoglobin A1c 6.4. Blood sugars are not controlled. Increase Lantus to 24 units subcutaneous daily. Acute respiratory failure- On mechanical ventilation. Continue to keep him nothing by mouth except for meds. Extubated yesterday.Advance diet if tolerated Low grade fever- consult . Improving. Elevated LFTs- consult Dr. Pearson.Abdominal Sonogram - fatty liver Sore throat due to intubation.D/w .Throat lozenges. hypertension- start Amlodipine. Weakness- PT/OT.They recommended acute rehab but will monitor. Condition treatment options discussed with the patient and family. Possible discharge tomorrow. Plan Plan For more details regarding further plans, please refer to the orders. MAYELA ALLRED MD Dec 03, 2018 09:54
[2018-12-03] MEDS: INSULIN GLARGINE SYRINGE. SQ SCH (10:00)
[2018-12-03 11:00] VITALS: BP 183/99
--- NOTE | 2018-12-03 11:46 | NUR ---
SW following for discharge planning. Chart reviewed, discussed with RN. Pt is a transfer from ICU. PT/OT recommending acute rehab. SW met with pt to discuss recommendations, pt agreeable to rehab and preferred the one off [address] ([facility]). AUBREE phoned and faxed referral to [facility] (ph: [phone], fax: [phone]). SW waiting on acceptance decision and insurance auth. SW will continue to follow. RN notified. Addendum: 12/03/18 at 1319 by AVERY MAK SW following. [facility] has clinically accepted pt. Awaiting insurance auth. SW will continue to follow. RN notified.
[2018-12-03 15:00] VITALS: BP 171/92
[2018-12-03] MEDS: BENZOCAINE/MENTHOL LOZENGE. PO PRN ×2 (17:29→20:55)
[2018-12-03 19:15] VITALS: BP 150/80
[2018-12-03] MEDS ORDERED: PHENOL ORAL SPRAY 177ML BOTTLE. PO PRN (19:30)
[2018-12-03] MEDS: FAMOTIDINE 20 MG TABLET. PO SCH (20:55)
[2018-12-03] MEDS: MONTELUKAST SODIUM 10 MG TABLET. PO SCH (20:55)
[2018-12-03 23:07] VITALS: BP 170/90
[2018-12-04 03:15] VITALS: BP 157/87
[2018-12-04 05:20] LABS: ALBUMIN 3.1 g/dL (3.4-5.0); ALBUMIN/GLOBULIN RATIO 0.8 (1.0-1.7); CALCIUM 8.6 mg/dL (8.5-10.1); GFR 92.5; POTASSIUM 3.8 mmol/L (3.5-5.1); TOTAL BILIRUBIN 0.8 mg/dL (0.2-1.0)
[2018-12-04] MEDS: HEPARIN for SUB-Q USE 5,000 UNIT/ML VIAL. SQ SCH ×3 (05:37→23:35)
[2018-12-04 07:00] VITALS: BP 148/84
[2018-12-04] MEDS: IPRATRPIUM/ALBUTEROL 0.5/2.5MG 3 ML NEBU. NEB SCH ×4 (07:02→20:00)
[2018-12-04] MEDS: amLODIPine BESYLATE 5 MG TABLET PO SCH (08:05)
[2018-12-04] MEDS: CETIRIZINE HCL 10 MG TABLET. PO SCH (08:05)
[2018-12-04] MEDS: metFORMIN 500 MG TABLET PO SCH ×2 (08:05→18:06)
[2018-12-04] MEDS: INSULIN LISPRO 300 UNITS/3 ML VIAL. SQ SCH ×3 (08:12→18:11)
[2018-12-04] MEDS ORDERED: METF500T PO (09:03)
[2018-12-04] MEDS ORDERED: INSU100V8 SQ (09:03)
[2018-12-04] MEDS ORDERED: AMLO5TAB10 PO (09:03)
[2018-12-04] MEDS ORDERED: FAMO20TA5 PO (09:03)
[2018-12-04] MEDS ORDERED: MONT10TA49 PO (09:03)
--- NOTE | 2018-12-04 09:05 | DISCH ---
DISCHARGE INSTRUCTIONS Condition on Discharge Condition on Discharge: Stable Activity After Discharge Activity Instructions for Disc: Activity as tolerated (with walker) Diet after Discharge Diet after Discharge: Cardiac (ADA,soft) Checks after Discharge Checks after discharge: Check blood sugar, ac/hs Community/Resources/Services Services at Discharge: PT EVALUATE & TREAT Contacting the DRImelda after DC Call your doctor for: Concerns you may have Follow-Up Follow up with: Dr. MAYELA Lopez in 3 days on Friday. Treatment/Equipment after DC Adaptive Equipment Issued: Front wheeled MAYELA Sheth MD Dec 04, 2018 09:05
[2018-12-04] MEDS ORDERED: EPIPEN0.3 MG/0.3 IM (09:07)
--- NOTE | 2018-12-04 09:34 | PDOC ---
Infectious Disease Note Subjective: Subjective Pt says feels ok Pt says cont to have sore throat, no tongue swelling or soreness in the mouth no f/c/n/v/d/sob or cough ROS: ROS Negative otherwise. Vital Signs: Vital Signs Vital Signs Date Time Temp Pulse Resp B/P (MAP) Pulse Ox O2 Delivery O2 Flow Rate FiO2 12/04/18 08:05 88 148/84 12/04/18 07:03 90 Room Air 12/04/18 07:00 97.6 16 97.6 12/03/18 08:00 2.0 Physical Exam: PHYSICAL EXAM GENERAL: axoxo3 male in nad sitting in chair HEENT: Anicteric. no oral lesions,dentition good, tongue no swelling NECK: Supple. no jvd, no lad LUNGS: Decreased breath sounds at the bases mainly on RT, otherwise clear. HEART: S1, S2 regular. ABDOMEN: Soft, nontender, nondistended. GENITOURINARY: Chow in place. EXTREMITIES: No edema. DERMATOLOGIC: Warm, dry. No generalized rash. NEUROLOGIC: nonfocal grossly Medications: Inpatient Meds: Current Medications Medications (Trade) Dose Ordered Sig/Logan Start Time Stop Time Status Last Admin Dose Admin Acetaminophen (Tylenol) 650 mg PRN Q4HRS PRN 11/25/18 22:45 12/03/18 18:11 650 MG Albuterol/ Ipratropium (Duoneb) 3 ml RTQID 11/27/18 16:00 12/04/18 07:02 3 ML Amlodipine Besylate (Norvasc) 5 mg DAILY 12/03/18 09:00 UNV Cetirizine HCl (ZyrTEC) 10 mg DAILY 11/26/18 12:00 12/04/18 08:05 10 MG Chlorhexidine Gluconate (Peridex) 15 ml BID 11/26/18 09:00 11/26/18 10:21 DC Dextrose (Dextrose 50%-Water Syringe) 12.5 gm PRN Q15MIN PRN 12/03/18 09:45 Dextrose/Sodium Chloride 1,000 ml @ 75 mls/hr [id number] 11/26/18 11:00 11/26/18 19:34 DC 11/26/18 11:15 75 MLS/HR Diphenhydramine HCl (Benadryl) 25 mg Q4HRS 11/26/18 00:00 12/01/18 12:19 DC 12/01/18 08:05 25 MG Epinephrine HCl (Adrenalin) 0.3 mg PRN Q5MIN PRN 11/25/18 22:45 Etomidate (Amidate) 20 mg 1X ONCE 11/25/18 20:19 11/25/18 22:28 DC 11/25/18 20:19 20 MG Famotidine (Pepcid Vial) 20 mg BID 11/26/18 21:00 12/03/18 09:31 DC 12/03/18 08:04 20 MG Famotidine (Pepcid) 20 mg QHS 12/03/18 21:00 12/03/18 20:55 20 MG Fentanyl Citrate 30 ml @ 0 mls/hr CONT PRN 11/25/18 22:45 12/02/18 13:44 DC 12/01/18 03:54 2.5 MLS/HR Fentanyl Citrate (Fentanyl 2ml Vial) 50 mcg PRN Q1HR PRN 11/25/18 20:45 12/02/18 13:45 DC 11/28/18 12:03 50 MCG Furosemide (Lasix) 20 mg 1X ONCE 11/29/18 06:30 11/29/18 06:31 DC 11/29/18 06:52 20 MG Heparin Sodium (Porcine) (Heparin Sodium) 5,000 unit Q8HRS 11/26/18 06:00 12/04/18 05:37 5,000 UNIT Hydralazine HCl (Apresoline Inj) 10 mg PRN Q4HRS PRN 11/29/18 12:45 UNV Insulin Glargine (Lantus Syringe) 20 unit [id number] 12/01/18 10:00 12/03/18 10:00 20 UNIT Insulin Human Lispro (HumaLOG) 0-5 UNITS TIDWMEALS 12/03/18 12:00 12/04/18 08:12 2 UNITS Metformin HCl (Glucophage) 500 mg [id number] 11/27/18 10:00 12/04/18 08:05 500 MG Methylprednisolone Sodium Succinate (SOLU-Medrol 40MG VIAL) 100 mg Q6HRS 11/26/18 12:00 11/26/18 12:14 DC Methylprednisolone Sodium Succinate (SOLU-Medrol 125MG VIAL) 100 mg Q12HR 12/01/18 21:00 12/03/18 09:45 DC 12/03/18 08:05 100 MG Midazolam HCl (Versed) 5 mg STK-MED ONCE 11/26/18 16:00 11/27/18 09:06 DC Montelukast Sodium (Singulair) 10 mg QHS 11/26/18 21:00 12/03/18 20:55 10 MG Ondansetron HCl (Zofran) 4 mg PRN Q8HRS PRN 11/25/18 21:15 11/26/18 21:14 DC Phenol (Chloraseptic) 1 spray PRN Q2HR PRN 12/03/18 19:30 12/03/18 20:55 1 SPRAY Potassium Chloride/Sodium Chloride 1,000 ml @ 75 mls/hr [id number] 11/27/18 09:30 11/29/18 06:09 DC 11/29/18 03:40 75 MLS/HR Propofol (Diprivan) 100 mg 1X ONCE 11/25/18 21:12 11/25/18 22:32 DC 11/25/18 21:12 100 MG Rocuronium Malone (Zemuron) 50 mg 1X ONCE 11/25/18 20:29 11/25/18 22:32 DC 11/25/18 20:29 50 MG Sodium Bicarbonate 150 meq/Dextrose 1,150 ml @ 125 mls/hr [id number] 11/28/18 15:00 Cancel Sodium Chloride 1,000 ml @ 75 mls/hr [id number] 11/26/18 21:00 11/27/18 09:24 DC 11/27/18 08:19 75 MLS/HR Succinylcholine Chloride (Anectine) 100 mg 1X ONCE 11/25/18 22:30 11/25/18 22:32 DC 11/25/18 20:20 100 MG Throat Lozenges (Cepacol Sore Throat Lozenge) 1 ignacio PRN Q2HRS PRN 12/03/18 11:00 12/03/18 20:55 1 [id number] Labs: Lab Laboratory Tests Test 12/03/18 11:42 12/03/18 16:47 12/03/18 20:58 12/04/18 04:40 Glucose (Fingerstick) 264 mg/dL (70-99) 189 mg/dL (70-99) 177 mg/dL (70-99) Sodium Level 140 mmol/L (136-145) Potassium Level 3.8 mmol/L (3.5-5.1) Chloride Level 104 mmol/L (98-107) Carbon Dioxide Level 29 mmol/L (21-32) Anion Gap 7 (6-14) Blood Urea Nitrogen 31 mg/dL (8-26) Creatinine 1.0 mg/dL (0.7-1.3) Estimated GFR (Cockcroft-Gault) 92.5 BUN/Creatinine Ratio 31 (6-20) Glucose Level 178 mg/dL (70-99) Calcium Level 8.6 mg/dL (8.5-10.1) Total Bilirubin 0.8 mg/dL (0.2-1.0) Aspartate Amino Transf (AST/SGOT) 49 U/L (15-37) Alanine Aminotransferase (ALT/SGPT) 249 U/L (16-63) Alkaline Phosphatase 71 U/L (46-116) Total Protein 7.0 g/dL (6.4-8.2) Albumin 3.1 g/dL (3.4-5.0) Albumin/Globulin Ratio 0.8 (1.0-1.7) Test 12/04/18 07:57 Glucose (Fingerstick) 163 mg/dL (70-99) Objective: Assessment: 1. Acute respiratory failure, extubated 2. Acute angioedema, etiology unclear, supposed to be on lisinopril. 3. Low-grade fever, likely from atelectasis. now resolved 4. Hyperlipidemia/htn 5. History of diverticulosis. 6. Leukocytosis, on steroids. 7. Sore throat likely from recent intubation Plan: Plan of Care will start empiric augmentin for 7 days local care KAJAL RUTHERFORD MD Dec 04, 2018 09:34
--- NOTE | 2018-12-04 09:34 | PDOC ---
PULMONARY PROGRESS NOTES Subjective EXTUBATED 12/01 NOW SORE THROAT NO RESP DISTRESS Vitals Vital Signs Date Time Temp Pulse Resp B/P (MAP) Pulse Ox O2 Delivery O2 Flow Rate FiO2 12/04/18 08:05 88 148/84 12/04/18 07:03 90 Room Air 12/04/18 07:00 97.6 16 97.6 12/03/18 08:00 2.0 ROS: No Nausea, No Chest Pain, No Abdominal Pain General: Alert HEENT: Other (TOUNGE DECREASE SWELLING) Lungs: Clear Cardiovascular: S1, S2 Abdomen: Soft, Non-tender, Other (no mass) Extremities: No Edema Skin: Warm Labs Laboratory Tests Test 12/02/18 11:46 12/02/18 16:41 12/02/18 20:51 12/03/18 00:09 Glucose (Fingerstick) 231 mg/dL (70-99) 184 mg/dL (70-99) 141 mg/dL (70-99) 229 mg/dL (70-99) Test 12/03/18 04:45 12/03/18 06:23 12/03/18 11:42 12/03/18 16:47 White Blood Count 14.8 x10^3/uL (4.0-11.0) Red Blood Count 5.94 x10^6/uL (4.30-5.70) Hemoglobin 16.1 g/dL (13.0-17.5) Hematocrit 49.3 % (39.0-53.0) Mean Corpuscular Volume 83 fL (79-100) Mean Corpuscular Hemoglobin 27 pg (25-35) Mean Corpuscular Hemoglobin Concent 33 g/dL (31-37) Red Cell Distribution Width 15.1 % (11.5-14.5) Platelet Count 210 x10^3/uL (140-400) Neutrophils (%) (Auto) 83 % (31-73) Lymphocytes (%) (Auto) 11 % (24-48) Monocytes (%) (Auto) 6 % (0-9) Eosinophils (%) (Auto) 0 % (0-3) Basophils (%) (Auto) 0 % (0-3) Neutrophils # (Auto) 12.3 x10^3/uL (1.8-7.7) Lymphocytes # (Auto) 1.6 x10^3/uL (1.0-4.8) Monocytes # (Auto) 0.9 x10^3/uL (0.0-1.1) Eosinophils # (Auto) 0.0 x10^3/uL (0.0-0.7) Basophils # (Auto) 0.0 x10^3/uL (0.0-0.2) Sodium Level 141 mmol/L (136-145) Potassium Level 4.5 mmol/L (3.5-5.1) Chloride Level 102 mmol/L (98-107) Carbon Dioxide Level 28 mmol/L (21-32) Anion Gap 11 (6-14) Blood Urea Nitrogen 35 mg/dL (8-26) Creatinine 1.0 mg/dL (0.7-1.3) Estimated GFR (Cockcroft-Gault) 92.5 BUN/Creatinine Ratio 35 (6-20) Glucose Level 224 mg/dL (70-99) Calcium Level 8.8 mg/dL (8.5-10.1) Total Bilirubin 1.0 mg/dL (0.2-1.0) Aspartate Amino Transf (AST/SGOT) 71 U/L (15-37) Alanine Aminotransferase (ALT/SGPT) 289 U/L (16-63) Alkaline Phosphatase 75 U/L (46-116) Total Protein 6.8 g/dL (6.4-8.2) Albumin 3.2 g/dL (3.4-5.0) Albumin/Globulin Ratio 0.9 (1.0-1.7) Glucose (Fingerstick) 192 mg/dL (70-99) 264 mg/dL (70-99) 189 mg/dL (70-99) Test 12/03/18 20:58 12/04/18 04:40 12/04/18 07:57 Glucose (Fingerstick) 177 mg/dL (70-99) 163 mg/dL (70-99) Sodium Level 140 mmol/L (136-145) Potassium Level 3.8 mmol/L (3.5-5.1) Chloride Level 104 mmol/L (98-107) Carbon Dioxide Level 29 mmol/L (21-32) Anion Gap 7 (6-14) Blood Urea Nitrogen 31 mg/dL (8-26) Creatinine 1.0 mg/dL (0.7-1.3) Estimated GFR (Cockcroft-Gault) 92.5 BUN/Creatinine Ratio 31 (6-20) Glucose Level 178 mg/dL (70-99) Calcium Level 8.6 mg/dL (8.5-10.1) Total Bilirubin 0.8 mg/dL (0.2-1.0) Aspartate Amino Transf (AST/SGOT) 49 U/L (15-37) Alanine Aminotransferase (ALT/SGPT) 249 U/L (16-63) Alkaline Phosphatase 71 U/L (46-116) Total Protein 7.0 g/dL (6.4-8.2) Albumin 3.1 g/dL (3.4-5.0) Albumin/Globulin Ratio 0.8 (1.0-1.7) Laboratory Tests Test 12/03/18 11:42 12/03/18 16:47 12/03/18 20:58 12/04/18 04:40 Glucose (Fingerstick) 264 mg/dL (70-99) 189 mg/dL (70-99) 177 mg/dL (70-99) Sodium Level 140 mmol/L (136-145) Potassium Level 3.8 mmol/L (3.5-5.1) Chloride Level 104 mmol/L (98-107) Carbon Dioxide Level 29 mmol/L (21-32) Anion Gap 7 (6-14) Blood Urea Nitrogen 31 mg/dL (8-26) Creatinine 1.0 mg/dL (0.7-1.3) Estimated GFR (Cockcroft-Gault) 92.5 BUN/Creatinine Ratio 31 (6-20) Glucose Level 178 mg/dL (70-99) Calcium Level 8.6 mg/dL (8.5-10.1) Total Bilirubin 0.8 mg/dL (0.2-1.0) Aspartate Amino Transf (AST/SGOT) 49 U/L (15-37) Alanine Aminotransferase (ALT/SGPT) 249 U/L (16-63) Alkaline Phosphatase 71 U/L (46-116) Total Protein 7.0 g/dL (6.4-8.2) Albumin 3.1 g/dL (3.4-5.0) Albumin/Globulin Ratio 0.8 (1.0-1.7) Test 12/04/18 07:57 Glucose (Fingerstick) 163 mg/dL (70-99) Medications Active Scripts Medications Dose Route/Sig Max Daily Dose Days Date Category Amoxicillin 500 Mg Capsule 2 Cap PO BID 04/19/17 Rx Impression . IMPRESSION: 1. Acute respiratory failure secondary to angioedema. RESOLVED 2. ALICIA inhibitor related angioedema. 3. Abnormal x-ray SUSPECT ATELECTASIS DIFFICULT TO RULE OUT PNEUMONIA 4. Hypertension. CXR IMPRESSION: 1. Life support devices as above. 2. Unchanged low lung volumes and bibasilar atelectasis or infiltrates. Plan . PT REC ACUTE REHAB WILL NEED REFERRAL TO ACUTE REHAB DECREASE STEROIDS D/C ANTIHISTAMINE ANTI BX PER ID GAVIN CASTRO MD Dec 04, 2018 09:34
--- NOTE | 2018-12-04 09:38 | PDOC ---
IM PROGRESS NOTES- Subjective Subjective Still has significant sore throat,weakness,decreased oral intake. Objective Vitals/I&O Vital Signs Date Time Temp Pulse Resp B/P (MAP) Pulse Ox O2 Delivery O2 Flow Rate FiO2 12/04/18 08:05 88 148/84 12/04/18 07:03 90 Room Air 12/04/18 07:00 97.6 16 97.6 12/03/18 08:00 2.0 I & O 12/03/18 12/03/18 12/04/18 15:00 23:00 07:00 Intake Total 480 ml Output Total 300 ml Balance 180 ml Physical Exam Physical Exam General appearance - alert,and in no distress, remains very weak. Mental Status - alert, oriented Head - normal Tongue and lips don't show any significant swelling but has significant swelling in the pharyngeal area Chest -decreased sounds at bases, clear Heart - S1 and S2 normal Abdomen - soft, non tender, non distended, Neurological -alert,appropriate Extremities - no pedal edema Skin - warm and dry Labs Laboratory Tests Test 12/03/18 11:42 12/03/18 16:47 12/03/18 20:58 12/04/18 04:40 Glucose (Fingerstick) 264 mg/dL (70-99) H 189 mg/dL (70-99) H 177 mg/dL (70-99) H Sodium Level 140 mmol/L (136-145) Potassium Level 3.8 mmol/L (3.5-5.1) Chloride Level 104 mmol/L (98-107) Carbon Dioxide Level 29 mmol/L (21-32) Anion Gap 7 (6-14) Blood Urea Nitrogen 31 mg/dL (8-26) H Creatinine 1.0 mg/dL (0.7-1.3) Estimated GFR (Cockcroft-Gault) 92.5 BUN/Creatinine Ratio 31 (6-20) H Glucose Level 178 mg/dL (70-99) H Calcium Level 8.6 mg/dL (8.5-10.1) Total Bilirubin 0.8 mg/dL (0.2-1.0) Aspartate Amino Transferase (AST) 49 U/L (15-37) H Alanine Aminotransferase (ALT) 249 U/L (16-63) H Alkaline Phosphatase 71 U/L (46-116) Total Protein 7.0 g/dL (6.4-8.2) Albumin 3.1 g/dL (3.4-5.0) L Albumin/Globulin Ratio 0.8 (1.0-1.7) L Test 12/04/18 07:57 Glucose (Fingerstick) 163 mg/dL (70-99) H Laboratory Tests 12/04/18 04:40 Meds Current Medications Medications (Trade) Dose Ordered Sig/Logan Route PRN Reason Start Time Stop Time Status Last Admin Dose Admin Famotidine (Pepcid) 20 mg QHS PO 12/03/18 21:00 12/03/18 20:55 Insulin Human Lispro (HumaLOG) 0-5 UNITS TIDWMEALS SQ 12/03/18 12:00 12/04/18 08:12 Throat Lozenges (Cepacol Sore Throat Lozenge) 1 miguel PRN Q2HRS PRN PO SORE THROAT 12/03/18 11:00 12/03/18 20:55 Phenol (Chloraseptic) 1 spray PRN Q2HR PRN PO SORE THROAT 12/03/18 19:30 12/03/18 20:55 Assessment Assessment 1. Acute respiratory failure. The patient is intubated. 2. Acute angioedema, etiology not clear. The patient is supposed to be on lisinopril 10 mg daily and Lipitor 20 mg daily at bedtime and he has also been prescribed Singulair and Flonase previously for allergies. I am not sure what he has taken or currently taking. 3. Hypertension. 4. Hyperlipidemia. 5. Noncompliance. 6. History of diverticulosis. 7. Prediabetes PLAN: Condition and treatment were extensively discussed with the patient and the patient's family. The patient is sedated at this time. Consultation has been obtained with Dr. Winchester and we will see when he can be taken off the sedation and when he can be extubated. We will continue Solu-Medrol 100 mg IV q. 6 hours for now. Check labs in a.m. The patient will need an EpiPen on discharge and likely follow up with the gelatin maker [employer]. For details, please refer to the orders. The patient has been admitted to Intensive Care Unit. Angioedema-slow improvement. I'll give her him one more dose of IV Solu-Medrol 60 mg today. Hyperglycemia- On sliding scale 4 times a day. Patient also has prediabetes. Add metformin. Hemoglobin A1c 6.4. Blood sugars are not controlled. On Lantus 20 units subcutaneous daily. Diabetes education. Acute respiratory failure- On mechanical ventilation. Continue to keep him nothing by mouth except for meds. Extubated yesterday.Advance diet if tolerated Low grade fever- consult . Improving. Elevated LFTs- consult Dr. Pearson.Abdominal Sonogram - fatty liver Sore throat due to intubation.D/w .Throat lozenges. Still has significant sore throat and swelling in the pharyngeal area. hypertension- start Amlodipine. Weakness- PT/OT.They recommended acute rehab . She will get a screening from [facility] today. Condition treatment options discussed with the patient and family. Possible discharge tomorrow. Plan Plan For more details regarding further plans, please refer to the orders. MAYELA ALLRED MD Dec 04, 2018 09:38
[2018-12-04] MEDS ORDERED: methylPREDNISolone SOD SUCC PF 40 MG/ML VIAL. IV ONE (10:30)
[2018-12-04 11:00] VITALS: BP 130/82
[2018-12-04] MEDS: INSULIN GLARGINE SYRINGE. SQ SCH (11:18)
--- NOTE | 2018-12-04 12:33 | NUR ---
Patient was eating before blood sugar was able to get checked.
--- NOTE | 2018-12-04 12:38 | PDOC ---
Subjective: Subjective: Not eating much - doesn't feel like it, throat is sore. Objective: Vital Signs: Vital Signs Date Time Temp Pulse Resp B/P (MAP) Pulse Ox O2 Delivery O2 Flow Rate FiO2 12/04/18 08:05 88 148/84 12/04/18 07:03 90 Room Air 12/04/18 07:00 97.6 16 97.6 12/03/18 08:00 2.0 Labs: Laboratory Tests Test 12/03/18 16:47 12/03/18 20:58 12/04/18 04:40 12/04/18 07:57 Glucose (Fingerstick) 189 mg/dL 177 mg/dL 163 mg/dL Sodium Level 140 mmol/L Potassium Level 3.8 mmol/L Chloride Level 104 mmol/L Carbon Dioxide Level 29 mmol/L Anion Gap 7 Blood Urea Nitrogen 31 mg/dL Creatinine 1.0 mg/dL Estimated GFR (Cockcroft-Gault) 92.5 BUN/Creatinine Ratio 31 Glucose Level 178 mg/dL Calcium Level 8.6 mg/dL Total Bilirubin 0.8 mg/dL Aspartate Amino Transf (AST/SGOT) 49 U/L Alanine Aminotransferase (ALT/SGPT) 249 U/L Alkaline Phosphatase 71 U/L Total Protein 7.0 g/dL Albumin 3.1 g/dL Albumin/Globulin Ratio 0.8 Test 12/04/18 12:25 Glucose (Fingerstick) 187 mg/dL PE: GEN: NAD - sitting on edge of bed HEENT: hoarse LUNGS: room air NEURO/PSYCH: A & O 3 A/P: Resp failure/angioedema, sore throat Elevated AST and ALT - improved, fatty liver on imaging -- Encouraged PO - he thinks he'd like ice cream. ?GI cocktail/lidocaine AJIT ELIZONDO Dec 04, 2018 12:38
--- NOTE | 2018-12-04 13:26 | NUR ---
SW following for discharge planning. Insurance denied acute rehab for pt, however will approve SNU. SW met with pt, pt decided he wants to go home and is agreeable to home health. He does not have a preference as to which agency, is okay with [facility] RN meeting with him to discuss home health. Per RN, pt staying one more night due to swelling in his throat. RN notified. SW will continue to follow. Addendum: 12/04/18 at 1615 by AVERY MAK SW following. [facility]. [facility] at [phone]. RN notified. No further SW needs.
[2018-12-04 15:00] VITALS: BP 146/89
[2018-12-04 19:00] VITALS: BP 145/90
[2018-12-04] MEDS: MONTELUKAST SODIUM 10 MG TABLET. PO SCH (21:15)
[2018-12-04] MEDS: AMOXICILLIN/K CLAV 875/125MG TABLET. PO SCH (21:15)
[2018-12-04] MEDS: FAMOTIDINE 20 MG TABLET. PO SCH (21:15)
[2018-12-04] MEDS: LACTOBACILLUS RHAMNOSUS GG 1 CAPSULE. PO SCH (21:16)
[2018-12-04 23:03] VITALS: BP 137/79
[2018-12-05 03:01] VITALS: BP 150/107
[2018-12-05 06:10] LABS: BASO % 0 % (0-3); EOS # 0.1 x10^3/uL (0.0-0.7); EOS % 0 % (0-3); HEMATOCRIT 48.1 % (39.0-53.0); LYMPH # 2.6 x10^3/uL (1.0-4.8); LYMPH % 19 % (24-48); MEAN CORPUSCULAR HEMOGLOBIN 28 pg (25-35); MEAN CORPUSCULAR HGB CONC 33 g/dL (31-37); MEAN CORPUSCULAR VOLUME 83 fL (79-100); MONO # 1.3 x10^3/uL (0.0-1.1); MONO % 9 % (0-9); NEUT # 9.9 x10^3/uL (1.8-7.7); NEUT % 71 % (31-73); PLATELET COUNT 196 x10^3/uL (140-400); RED BLOOD COUNT 5.79 x10^6/uL (4.30-5.70); RED CELL DISTRIBUTION WIDTH 14.9 % (11.5-14.5); WHITE BLOOD COUNT 13.9 x10^3/uL (4.0-11.0)
[2018-12-05 06:27] LABS: ALBUMIN 2.9 g/dL (3.4-5.0); ALBUMIN/GLOBULIN RATIO 0.7 (1.0-1.7); CALCIUM 8.4 mg/dL (8.5-10.1); CREATININE 0.9 mg/dL (0.7-1.3); GFR 104.5; TOTAL BILIRUBIN 0.6 mg/dL (0.2-1.0); TOTAL PROTEIN 6.8 g/dL (6.4-8.2)
[2018-12-05] MEDS: HEPARIN for SUB-Q USE 5,000 UNIT/ML VIAL. SQ SCH (06:33)
[2018-12-05 07:00] VITALS: BP 145/82
[2018-12-05] MEDS: IPRATRPIUM/ALBUTEROL 0.5/2.5MG 3 ML NEBU. NEB SCH ×2 (07:04→11:00)
--- NOTE | 2018-12-05 07:43 | PDOC ---
PULMONARY PROGRESS NOTES Subjective EXTUBATED 12/01 has sore throat, has occ cough Vitals Vital Signs Date Time Temp Pulse Resp B/P (MAP) Pulse Ox O2 Delivery O2 Flow Rate FiO2 12/05/18 07:06 94 Room Air 12/05/18 03:01 98.0 92 20 150/107 (121) 98.0 ROS: No Nausea, No Chest Pain, No Abdominal Pain General: Alert HEENT: Other (TOUNGE DECREASE SWELLING) Lungs: Clear Cardiovascular: S1, S2 Abdomen: Soft, Non-tender, Other (no mass) Extremities: No Edema Skin: Warm Labs Laboratory Tests Test 12/03/18 11:42 12/03/18 16:47 12/03/18 20:58 12/04/18 04:40 Glucose (Fingerstick) 264 mg/dL (70-99) 189 mg/dL (70-99) 177 mg/dL (70-99) Sodium Level 140 mmol/L (136-145) Potassium Level 3.8 mmol/L (3.5-5.1) Chloride Level 104 mmol/L (98-107) Carbon Dioxide Level 29 mmol/L (21-32) Anion Gap 7 (6-14) Blood Urea Nitrogen 31 mg/dL (8-26) Creatinine 1.0 mg/dL (0.7-1.3) Estimated GFR (Cockcroft-Gault) 92.5 BUN/Creatinine Ratio 31 (6-20) Glucose Level 178 mg/dL (70-99) Calcium Level 8.6 mg/dL (8.5-10.1) Total Bilirubin 0.8 mg/dL (0.2-1.0) Aspartate Amino Transf (AST/SGOT) 49 U/L (15-37) Alanine Aminotransferase (ALT/SGPT) 249 U/L (16-63) Alkaline Phosphatase 71 U/L (46-116) Total Protein 7.0 g/dL (6.4-8.2) Albumin 3.1 g/dL (3.4-5.0) Albumin/Globulin Ratio 0.8 (1.0-1.7) Test 12/04/18 07:57 12/04/18 12:25 12/04/18 16:59 12/04/18 20:52 Glucose (Fingerstick) 163 mg/dL (70-99) 187 mg/dL (70-99) 279 mg/dL (70-99) 165 mg/dL (70-99) Test 12/05/18 05:50 White Blood Count 13.9 x10^3/uL (4.0-11.0) Red Blood Count 5.79 x10^6/uL (4.30-5.70) Hemoglobin 16.0 g/dL (13.0-17.5) Hematocrit 48.1 % (39.0-53.0) Mean Corpuscular Volume 83 fL (79-100) Mean Corpuscular Hemoglobin 28 pg (25-35) Mean Corpuscular Hemoglobin Concent 33 g/dL (31-37) Red Cell Distribution Width 14.9 % (11.5-14.5) Platelet Count 196 x10^3/uL (140-400) Neutrophils (%) (Auto) 71 % (31-73) Lymphocytes (%) (Auto) 19 % (24-48) Monocytes (%) (Auto) 9 % (0-9) Eosinophils (%) (Auto) 0 % (0-3) Basophils (%) (Auto) 0 % (0-3) Neutrophils # (Auto) 9.9 x10^3/uL (1.8-7.7) Lymphocytes # (Auto) 2.6 x10^3/uL (1.0-4.8) Monocytes # (Auto) 1.3 x10^3/uL (0.0-1.1) Eosinophils # (Auto) 0.1 x10^3/uL (0.0-0.7) Basophils # (Auto) 0.0 x10^3/uL (0.0-0.2) Sodium Level 143 mmol/L (136-145) Potassium Level 4.0 mmol/L (3.5-5.1) Chloride Level 107 mmol/L (98-107) Carbon Dioxide Level 28 mmol/L (21-32) Anion Gap 8 (6-14) Blood Urea Nitrogen 26 mg/dL (8-26) Creatinine 0.9 mg/dL (0.7-1.3) Estimated GFR (Cockcroft-Gault) 104.5 BUN/Creatinine Ratio 29 (6-20) Glucose Level 180 mg/dL (70-99) Calcium Level 8.4 mg/dL (8.5-10.1) Total Bilirubin 0.6 mg/dL (0.2-1.0) Aspartate Amino Transf (AST/SGOT) 26 U/L (15-37) Alanine Aminotransferase (ALT/SGPT) 197 U/L (16-63) Alkaline Phosphatase 71 U/L (46-116) Total Protein 6.8 g/dL (6.4-8.2) Albumin 2.9 g/dL (3.4-5.0) Albumin/Globulin Ratio 0.7 (1.0-1.7) Laboratory Tests Test 12/04/18 07:57 12/04/18 12:25 12/04/18 16:59 12/04/18 20:52 Glucose (Fingerstick) 163 mg/dL (70-99) 187 mg/dL (70-99) 279 mg/dL (70-99) 165 mg/dL (70-99) Test 12/05/18 05:50 White Blood Count 13.9 x10^3/uL (4.0-11.0) Red Blood Count 5.79 x10^6/uL (4.30-5.70) Hemoglobin 16.0 g/dL (13.0-17.5) Hematocrit 48.1 % (39.0-53.0) Mean Corpuscular Volume 83 fL (79-100) Mean Corpuscular Hemoglobin 28 pg (25-35) Mean Corpuscular Hemoglobin Concent 33 g/dL (31-37) Red Cell Distribution Width 14.9 % (11.5-14.5) Platelet Count 196 x10^3/uL (140-400) Neutrophils (%) (Auto) 71 % (31-73) Lymphocytes (%) (Auto) 19 % (24-48) Monocytes (%) (Auto) 9 % (0-9) Eosinophils (%) (Auto) 0 % (0-3) Basophils (%) (Auto) 0 % (0-3) Neutrophils # (Auto) 9.9 x10^3/uL (1.8-7.7) Lymphocytes # (Auto) 2.6 x10^3/uL (1.0-4.8) Monocytes # (Auto) 1.3 x10^3/uL (0.0-1.1) Eosinophils # (Auto) 0.1 x10^3/uL (0.0-0.7) Basophils # (Auto) 0.0 x10^3/uL (0.0-0.2) Sodium Level 143 mmol/L (136-145) Potassium Level 4.0 mmol/L (3.5-5.1) Chloride Level 107 mmol/L (98-107) Carbon Dioxide Level 28 mmol/L (21-32) Anion Gap 8 (6-14) Blood Urea Nitrogen 26 mg/dL (8-26) Creatinine 0.9 mg/dL (0.7-1.3) Estimated GFR (Cockcroft-Gault) 104.5 BUN/Creatinine Ratio 29 (6-20) Glucose Level 180 mg/dL (70-99) Calcium Level 8.4 mg/dL (8.5-10.1) Total Bilirubin 0.6 mg/dL (0.2-1.0) Aspartate Amino Transf (AST/SGOT) 26 U/L (15-37) Alanine Aminotransferase (ALT/SGPT) 197 U/L (16-63) Alkaline Phosphatase 71 U/L (46-116) Total Protein 6.8 g/dL (6.4-8.2) Albumin 2.9 g/dL (3.4-5.0) Albumin/Globulin Ratio 0.7 (1.0-1.7) Medications Active Scripts Medications Dose Route/Sig Max Daily Dose Days Date Category Amoxicillin 500 Mg Capsule 2 Cap PO BID 04/19/17 Rx Impression . IMPRESSION: 1. Acute respiratory failure secondary to angioedema. RESOLVED 2. ALICIA inhibitor related angioedema. 3. Abnormal x-ray SUSPECT ATELECTASIS DIFFICULT TO RULE OUT PNEUMONIA 4. Hypertension. CXR IMPRESSION: 1. Life support devices as above. 2. Unchanged low lung volumes and bibasilar atelectasis or infiltrates. Plan . PT REC ACUTE REHAB WILL NEED REFERRAL TO ACUTE REHAB off STEROIDS off ANTIHISTAMINE ANTI BX PER ID discussed w pt HALLEY FERNANDES MD Dec 05, 2018 07:43
[2018-12-05] MEDS: INSULIN LISPRO 300 UNITS/3 ML VIAL. SQ SCH ×2 (08:00→11:37)
[2018-12-05] MEDS: AMOXICILLIN/K CLAV 875/125MG TABLET. PO SCH (08:25)
[2018-12-05] MEDS: LACTOBACILLUS RHAMNOSUS GG 1 CAPSULE. PO SCH (08:25)
[2018-12-05] MEDS: CETIRIZINE HCL 10 MG TABLET. PO SCH (08:25)
[2018-12-05] MEDS: amLODIPine BESYLATE 5 MG TABLET PO SCH (08:26)
[2018-12-05] MEDS: metFORMIN 500 MG TABLET PO SCH (08:26)
[2018-12-05 09:29] LABS: % BANDS 3 % (0-9); % EOS 1 % (0-5); % LYMPHS 28 % (24-48); % MONOS 9 % (0-10); % SEGS 59 % (35-66); PLT ESTIMATE ADEQUATE (ADEQUATE)
[2018-12-05] MEDS: INSULIN GLARGINE SYRINGE. SQ SCH (09:54)
--- NOTE | 2018-12-05 11:10 | PDOC3 ---
IM DISCHARGE SUMMARY Date of Admission Date of Admission Date of Admission: Nov 25, 2018 at 20:57 Date of Discharge Date of Discharge December 05, 2018 Primary Diagnosis Primary Diagnosis 1. Acute respiratory failure. The patient is intubated. 2. Acute angioedema, etiology not clear. The patient is supposed to be on lisinopril 10 mg daily and Lipitor 20 mg daily at bedtime and he has also been prescribed Singulair and Flonase previously for allergies. I am not sure what he has taken or currently taking. 3. Hypertension. 4. Hyperlipidemia. 5. Noncompliance. 6. History of diverticulosis. 7. Prediabetes 8. Hyperglycemia secondary to steroids 9. Weakness 10. Elevated LFTs Consults Consults Himanshu Souza MD; Minnie Winchester MD; Florentino Pearson MD Labs Labs Laboratory Tests Test 12/04/18 12:25 12/04/18 16:59 12/04/18 20:52 12/05/18 05:50 Glucose (Fingerstick) 187 mg/dL (70-99) H 279 mg/dL (70-99) H 165 mg/dL (70-99) H White Blood Count 13.9 x10^3/uL (4.0-11.0) H Red Blood Count 5.79 x10^6/uL (4.30-5.70) H Hemoglobin 16.0 g/dL (13.0-17.5) Hematocrit 48.1 % (39.0-53.0) Mean Corpuscular Volume 83 fL (79-100) Mean Corpuscular Hemoglobin 28 pg (25-35) Mean Corpuscular Hemoglobin Concent 33 g/dL (31-37) Red Cell Distribution Width 14.9 % (11.5-14.5) H Platelet Count 196 x10^3/uL (140-400) Neutrophils (%) (Auto) 71 % (31-73) Lymphocytes (%) (Auto) 19 % (24-48) L Monocytes (%) (Auto) 9 % (0-9) Eosinophils (%) (Auto) 0 % (0-3) Basophils (%) (Auto) 0 % (0-3) Neutrophils # (Auto) 9.9 x10^3/uL (1.8-7.7) H Lymphocytes # (Auto) 2.6 x10^3/uL (1.0-4.8) Monocytes # (Auto) 1.3 x10^3/uL (0.0-1.1) H Eosinophils # (Auto) 0.1 x10^3/uL (0.0-0.7) Basophils # (Auto) 0.0 x10^3/uL (0.0-0.2) Segmented Neutrophils % 59 % (35-66) Band Neutrophils % 3 % (0-9) Lymphocytes % 28 % (24-48) Monocytes % 9 % (0-10) Eosinophils % 1 % (0-5) Platelet Estimate Adequate (ADEQUATE) Sodium Level 143 mmol/L (136-145) Potassium Level 4.0 mmol/L (3.5-5.1) Chloride Level 107 mmol/L (98-107) Carbon Dioxide Level 28 mmol/L (21-32) Anion Gap 8 (6-14) Blood Urea Nitrogen 26 mg/dL (8-26) Creatinine 0.9 mg/dL (0.7-1.3) Estimated GFR (Cockcroft-Gault) 104.5 BUN/Creatinine Ratio 29 (6-20) H Glucose Level 180 mg/dL (70-99) H Calcium Level 8.4 mg/dL (8.5-10.1) L Total Bilirubin 0.6 mg/dL (0.2-1.0) Aspartate Amino Transferase (AST) 26 U/L (15-37) Alanine Aminotransferase (ALT) 197 U/L (16-63) H Alkaline Phosphatase 71 U/L (46-116) Total Protein 6.8 g/dL (6.4-8.2) Albumin 2.9 g/dL (3.4-5.0) L Albumin/Globulin Ratio 0.7 (1.0-1.7) L Test 12/05/18 07:40 Glucose (Fingerstick) 144 mg/dL (70-99) H Laboratory Tests 12/05/18 05:50 Laboratory Tests 12/05/18 05:50 Brief hospital course Brief hospital course This 58-year-old male who has a history of hypertension and hyperlipidemia, who woke up from a nap yesterday and became quite short of breath and had difficulty swallowing as well as he had some shortness of breath. The patient takes lisinopril and he is also on Lipitor 20 mg daily, he is on lisinopril 10 mg daily. In the Emergency Room, the patient was noted to have angioedema and his breathing got worse emergently and was intubated and was given IV steroids and admitted to the Intensive Care Unit. For more details regarding the past history, family history, social history, surgical history and other details, please refer to History and Physical. Condition and treatment were extensively discussed with the patient and the patient's family. The patient is sedated at this time. Consultation has been obtained with Dr. Winchester and we will see when he can be taken off the sedation and when he can be extubated. We will continue Solu-Medrol 100 mg IV q. 6 hours for now. Check labs in a.m. 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 For details, please refer to the orders. The patient has been admitted to Intensive Care Unit. Angioedema-slow improvement. I'll give her him one more dose of IV Solu-Medrol 60 mg today. Hyperglycemia- On sliding scale 4 times a day. Patient also has prediabetes. Add metformin. Hemoglobin A1c 6.4. Blood sugars are not controlled. On Lantus 20 units subcutaneous daily. Diabetes education. Blood sugars are improving. He may not need much insulin because the steroids have been discontinued. I advised him to check fingersticks and blood sugar 4 times a day. I've given him prescriptions for the Lancet strips monitor etc. See me in the office in 2 days. Hold Lantus if blood sugar less than 100. I'll discontinue sliding scale insulin. Acute respiratory failure- On mechanical ventilation. Continue to keep him nothing by mouth except for meds. Extubated yesterday.Advance diet if tolerated Low grade fever- consult . Improving. Elevated LFTs- consult Dr. Pearson.Abdominal Sonogram - fatty liver Sore throat due to intubation.D/w .Throat lozenges. Still has significant sore throat and swelling in the pharyngeal area. Yesterday patient was given IV Solu-Medrol because of significant swelling in the throat. The swelling is much better. His voice is better too. I will discharge him today without any steroids but I have told him that if there is any increase in the swelling or if he has dyspnea or any other symptoms call 911 and come to the emergency room. Give him an EpiPen that he can use for emergencies. I'll also see him in the office in 2 days. hypertension- start Amlodipine. Weakness- PT/OT.They recommended acute rehab . Insurance company approved a nursing home unit admission but patient is feeling better today and would rather go home with physical therapy and home health services. Condition treatment options discussed with the patient and family. Condition at the time of discharge is improving. He is to exercise caution as recurrence of the injury edema is higher in the first 6 months. He will not be using liseth inhibitors in future. Medications Current Medications Medications (Trade) Dose Ordered Sig/Logan Route PRN Reason Start Time Stop Time Status Last Admin Dose Admin Amoxicillin/ Clavulanate Potassium (Augmentin 875/ 125mg) 1 tab BID PO 12/04/18 21:00 12/05/18 08:25 Lactobacillus Rhamnosus (Culturelle) 1 cap BID PO 12/04/18 21:00 12/05/18 08:25 Medications reviewed and reconciled for discharge. Allergy Allergies Coded Allergies Type Severity Reaction Last Updated Verified lisinopril Allergy Severe Swelling 11/26/18 Yes Follow up in 2 days. DISPOSITION: Home health services Comments Discharge Management - 40 minutes. For other details please refer to discharge instructions MAYELA ALLRED MD Dec 05, 2018 11:10
[2018-12-05 11:12] VITALS: BP 179/93
--- NOTE | 2018-12-05 11:29 | NUR ---
Faxed order face sheet and discharge summary to Will GUSMAN @[phone].
--- NOTE | 2018-12-05 13:55 | NUR ---
Discharge instructions and belongings reviewed with patient, verbalized understanding. Patient was escorted out via wheelchair by Selin ASTUDILLO
== END 2018-12-05 14:03 | disposition home health service (06) | DRG 915 ==
LOC: ER 19:57 → 1 WEST ICU 20:57 → 4 NORTH 12-02 13:41
PROVIDERS: ADMIT Internal Medicine; ATTEND Internal Medicine
PROC: 5A1955Z Respiratory Ventilation, Greater than 96 Consecutive Hours (ICD-10-PCS; principal; 2018-11-25)
PROC: 0BH17EZ Insertion of Endotracheal Airway into Trachea, Via Natural or Artificial Opening (ICD-10-PCS; 2018-11-25)
DX: T78.3XXA Angioneurotic edema, initial encounter (principal); J96.00 Acute respiratory failure, unspecified whether with hypoxia or hypercapnia; J81.0 Acute pulmonary edema; J98.11 Atelectasis; D17.9 Benign lipomatous neoplasm, unspecified; E78.5 Hyperlipidemia, unspecified; K57.90 Diverticulosis of intestine, part unspecified, without perforation or abscess without bleeding; I10 Essential (primary) hypertension; J30.9 Allergic rhinitis, unspecified; K75.9 Inflammatory liver disease, unspecified; T46.4X5A Adverse effect of angiotensin-converting-enzyme inhibitors, initial encounter; Z79.4 Long term (current) use of insulin; Z79.899 Other long term (current) drug therapy; Z80.0 Family history of malignant neoplasm of digestive organs; Z80.1 Family history of malignant neoplasm of trachea, bronchus and lung; Z80.3 Family history of malignant neoplasm of breast; Z82.49 Family history of ischemic heart disease and other diseases of the circulatory system; Z83.3 Family history of diabetes mellitus; Z87.891 Personal history of nicotine dependence; Z91.19 Patient's noncompliance with other medical treatment and regimen; R73.9 Hyperglycemia, unspecified; T38.0X5A Adverse effect of glucocorticoids and synthetic analogues, initial encounter; Y92.89 Other specified places as the place of occurrence of the external cause; Z88.8 Allergy status to other drugs, medicaments and biological substances
CPT/HCPCS: 31500; 36415; 36600; 71045; 74018; 76700; 80048; 80053; 82805; 82962; 83036; 84478; 85007; 85025; 86705; 86709; 86803; 87340; 93005; 94002; 94003; 94640; 94760; 96372; 96374; 96375; J0171; J0330; J0360; J1200; J1644; J1815; J1940; J2250; J2704; J2920; J2930; J3010; J3490; J7030; J7620; 92526; 92610; 97110; 97116; 97530; 97535; 99291-25; G0378

== ENCOUNTER 2018-12-29 13:36 | Emergency (ER) | payer OTHER ==
[~2018-12-29] VITALS: Ht 182.9 cm; Wt 106.6 kg
[~2018-12-29 13:36] MED LIST changes: +AMLO5TAB10 PO; +EPIPEN0.3 MG/0.3 IM; +FAMO20TA5 PO; +INSU100V8 SQ; +METF500T PO; +MONT10TA49 PO
--- NOTE | 2018-12-29 14:02 | PHYS DOC ---
Past Medical History Past Medical History: High Cholesterol, Hypertension Additional Past Medical Histor: Sleep apnea, "borderline" diabetes (ALLYN DILLON NP) Past Surgical History: Other Additional Past Surgical Histo: RUE (ALLYN DILLON NP) Alcohol Use: Occasionally Drug Use: None (ALLYN DILLON NP) Adult General Chief Complaint Chief Complaint: COUGH HPI HPI Patient is a 58 year old male who presents with complaint of coughing up a couple of blood clots around noon this am while sitting at his desk working. Denies any other complaints but is concerned "because (ALLYN DILLON NP) Review of Systems Review of Systems Constitutional: Denies fever or chills Eyes: Denies change in visual acuity, redness, or eye pain HENT: Denies nasal congestion or sore throat. Complains of "coughing up blood". Denies any difficultly swallowing. Denies any oral swelling. Respiratory: Denies cough or shortness of breath Cardiovascular: No additional information not addressed in HPI GI: Denies abdominal pain, nausea, vomiting, bloody stools or diarrhea : Denies dysuria or hematuria Musculoskeletal: Denies back pain or joint pain Integument: Denies rash or skin lesions Neurologic: Denies headache, focal weakness or sensory changes Endocrine: Denies polyuria or polydipsia All other systems were reviewed and found to be within normal limits, except as documented in this note. (ALLYN DILLON NP) Current Medications Current Medications Current Medications Medications (Trade) Dose Ordered Sig/Logan Start Time Stop Time Status Last Admin Dose Admin Info (CONTRAST GIVEN -- Rx MONITORING) 1 each PRN DAILY PRN 12/29/18 14:30 12/29/18 16:57 DC Iohexol (Omnipaque 350 Mg/ml) 100 ml 1X ONCE 12/29/18 14:30 12/29/18 14:31 DC 12/29/18 14:30 100 ML (KRUNAL GUERRERO DO) Allergies Allergies Allergies Coded Allergies Type Severity Reaction Last Updated Verified lisinopril Allergy Severe Swelling 11/26/18 Yes (KRUNAL GUERRERO DO) Physical Exam Physical Exam Constitutional: Well developed, well nourished, no acute distress, non-toxic appearance. HENT: Normocephalic, atraumatic, bilateral external ears normal, oropharynx moist, no oral exudates, nose normal. No blood noted in nares. No edema/blood noted in oropharyngeal space. Mild hoarseness noted of voice which patient states is improving daily. Eyes: PERRLA, EOMI, conjunctiva normal, no discharge. Neck: Normal range of motion, no tenderness, supple, no stridor. Cardiovascular:Heart rate regular rhythm, no murmur Lungs & Thorax: Bilateral breath sounds clear to auscultation. Abdomen: Bowel sounds normal, soft, no tenderness, no masses, no pulsatile masses. Skin: Warm, dry, no erythema, no rash. Back: No tenderness, no CVA tenderness. Extremities: No tenderness, no cyanosis, no clubbing, ROM intact, no edema. Neurologic: Alert and oriented X 3, normal motor function, normal sensory function, no focal deficits noted. Psychologic: Affect normal, judgement normal, mood normal. (ALLYN DILLON NP) Current Patient Data Vital Signs Vital Signs Date Time Temp Pulse Resp B/P (MAP) Pulse Ox O2 Delivery O2 Flow Rate FiO2 12/29/18 16:43 82 16 132/68 (89) 93 Room Air 12/29/18 13:39 97.8 97.8 (KRUNAL GUERRERO DO) Lab Values Laboratory Tests Test 12/29/18 14:42 White Blood Count 5.4 x10^3/uL (4.0-11.0) Red Blood Count 5.22 x10^6/uL (4.30-5.70) Hemoglobin 14.5 g/dL (13.0-17.5) Hematocrit 43.1 % (39.0-53.0) Mean Corpuscular Volume 83 fL (79-100) Mean Corpuscular Hemoglobin 28 pg (25-35) Mean Corpuscular Hemoglobin Concent 34 g/dL (31-37) Red Cell Distribution Width 14.7 % (11.5-14.5) H Platelet Count 248 x10^3/uL (140-400) Neutrophils (%) (Auto) 55 % (31-73) Lymphocytes (%) (Auto) 31 % (24-48) Monocytes (%) (Auto) 12 % (0-9) H Eosinophils (%) (Auto) 1 % (0-3) Basophils (%) (Auto) 1 % (0-3) Neutrophils # (Auto) 3.0 x10^3/uL (1.8-7.7) Lymphocytes # (Auto) 1.7 x10^3/uL (1.0-4.8) Monocytes # (Auto) 0.7 x10^3/uL (0.0-1.1) Eosinophils # (Auto) 0.0 x10^3/uL (0.0-0.7) Basophils # (Auto) 0.0 x10^3/uL (0.0-0.2) Sodium Level 142 mmol/L (136-145) Potassium Level 3.5 mmol/L (3.5-5.1) Chloride Level 105 mmol/L (98-107) Carbon Dioxide Level 25 mmol/L (21-32) Anion Gap 12 (6-14) Blood Urea Nitrogen 10 mg/dL (8-26) Creatinine 0.9 mg/dL (0.7-1.3) Estimated GFR (Cockcroft-Gault) 104.5 BUN/Creatinine Ratio 11 (6-20) Glucose Level 149 mg/dL (70-99) H Calcium Level 8.3 mg/dL (8.5-10.1) L Total Bilirubin 0.3 mg/dL (0.2-1.0) Aspartate Amino Transferase (AST) 17 U/L (15-37) Alanine Aminotransferase (ALT) 29 U/L (16-63) Alkaline Phosphatase 75 U/L (46-116) Total Protein 6.8 g/dL (6.4-8.2) Albumin 3.5 g/dL (3.4-5.0) Albumin/Globulin Ratio 1.1 (1.0-1.7) Laboratory Tests 12/29/18 14:42 Laboratory Tests 12/29/18 14:42 (KRUNAL GUERRERO DO) Lab Values Laboratory Tests Test 12/29/18 14:42 White Blood Count 5.4 x10^3/uL (4.0-11.0) Red Blood Count 5.22 x10^6/uL (4.30-5.70) Hemoglobin 14.5 g/dL (13.0-17.5) Hematocrit 43.1 % (39.0-53.0) Mean Corpuscular Volume 83 fL (79-100) Mean Corpuscular Hemoglobin 28 pg (25-35) Mean Corpuscular Hemoglobin Concent 34 g/dL (31-37) Red Cell Distribution Width 14.7 % (11.5-14.5) H Platelet Count 248 x10^3/uL (140-400) Neutrophils (%) (Auto) 55 % (31-73) Lymphocytes (%) (Auto) 31 % (24-48) Monocytes (%) (Auto) 12 % (0-9) H Eosinophils (%) (Auto) 1 % (0-3) Basophils (%) (Auto) 1 % (0-3) Neutrophils # (Auto) 3.0 x10^3/uL (1.8-7.7) Lymphocytes # (Auto) 1.7 x10^3/uL (1.0-4.8) Monocytes # (Auto) 0.7 x10^3/uL (0.0-1.1) Eosinophils # (Auto) 0.0 x10^3/uL (0.0-0.7) Basophils # (Auto) 0.0 x10^3/uL (0.0-0.2) Sodium Level 142 mmol/L (136-145) Potassium Level 3.5 mmol/L (3.5-5.1) Chloride Level 105 mmol/L (98-107) Carbon Dioxide Level 25 mmol/L (21-32) Anion Gap 12 (6-14) Blood Urea Nitrogen 10 mg/dL (8-26) Creatinine 0.9 mg/dL (0.7-1.3) Estimated GFR (Cockcroft-Gault) 104.5 BUN/Creatinine Ratio 11 (6-20) Glucose Level 149 mg/dL (70-99) H Calcium Level 8.3 mg/dL (8.5-10.1) L Total Bilirubin 0.3 mg/dL (0.2-1.0) Aspartate Amino Transferase (AST) 17 U/L (15-37) Alanine Aminotransferase (ALT) 29 U/L (16-63) Alkaline Phosphatase 75 U/L (46-116) Total Protein 6.8 g/dL (6.4-8.2) Albumin 3.5 g/dL (3.4-5.0) Albumin/Globulin Ratio 1.1 (1.0-1.7) Laboratory Tests 12/29/18 14:42 Laboratory Tests 12/29/18 14:42 (ALLYN DILLON MANAGER CREATIVE) EKG EKG [] (ALLYN DILLON NP) Radiology/Procedures Radiology/Procedures IMPRESSION: 1. No large central or lobar pulmonary thrombolic disease. Segmental and subsegmental pulmonary arterial branches not well evaluated due to suboptimal contrast opacification. 2. No pulmonary mass or consolidation.] (ALLYN DILLON NP) Impressions: MPRESSION: 1. No large central or lobar pulmonary thrombolic disease. Segmental and subsegmental pulmonary arterial branches not well evaluated due to suboptimal contrast opacification. 2. No pulmonary mass or consolidation. (ALLYN DILLON NP) Course & Med Decision Making Course & Med Decision Making Pertinent Labs and Imaging studies reviewed. (See chart for details) Patient assessed and found to be in no acute distress. A/O x 4 and talking in full length non-labored sentences. Speaks easily and denies any difficulty breathing/swallowing. Patient denies any other complaint than coughing up two clots earlier while sitting at desk. Patient was recently admitted and subsequently intubated for angioedema and acute resp. distress from 11/25/18 - 12/05/18. Discharged home on 12/05/18 and followed up with Dr. Allred on both 12/07/18 and 12/22/18 for ongoing hoarseness. Labs and exam done at that time. Patient called Dr. Allred's office today stating that he had "coughed up blood" and staff referred him to ER. Due to prolonged hospitalization and intubation, baseline labs to be run and CTA chest to R/O embolism. Labs returned and found to be non-concerning with no significant changes. CTA IMPRESSION: 1. No large central or lobar pulmonary thrombolic disease. Segmental and subsegmental pulmonary arterial branches not well evaluated due to suboptimal contrast opacification. 2. No pulmonary mass or consolidation. Decision made to discharge patient home with instructions on Hemoptysis. Patient to follow up with PCP as previously scheduled. (ALLYN DILLON NP) Dragon Disclaimer Dragon Disclaimer This electronic medical record was generated, in whole or in part, using a voice recognition dictation system. (ALLYN DILLON NP) Departure Departure Impression: Primary Impression: Hemoptysis, unspecified Disposition: 01 HOME, SELF-CARE Condition: STABLE Referrals: MAYELA ALLRED MD (PCP) Attending Signature Attending Signature I have reviewed the PA/MANAGER CREATIVE's note and plan of care. I was available for consultation as needed during the patient's visit in the emergency department. I agree with the clinical impression, plan, and disposition. (KRUNAL GUERRERO DO) ALLYN DILLON NP Dec 29, 2018 14:02 KRUNAL GUERRERO DO Dec 31, 2018 14:04
[2018-12-29] MEDS ORDERED: CONTRAST GIVEN. MC PRN (14:30)
[2018-12-29] MEDS ORDERED: IOHEXOL 350 MG/ML 100 ML VIAL. IV ONE (14:30)
[2018-12-29 14:48] LABS: BASO % 1 % (0-3); EOS % 1 % (0-3); HEMATOCRIT 43.1 % (39.0-53.0); HEMOGLOBIN 14.5 g/dL (13.0-17.5); LYMPH # 1.7 x10^3/uL (1.0-4.8); LYMPH % 31 % (24-48); MEAN CORPUSCULAR HEMOGLOBIN 28 pg (25-35); MEAN CORPUSCULAR HGB CONC 34 g/dL (31-37); MEAN CORPUSCULAR VOLUME 83 fL (79-100); MONO # 0.7 x10^3/uL (0.0-1.1); MONO % 12 % (0-9); NEUT % 55 % (31-73); PLATELET COUNT 248 x10^3/uL (140-400); RED BLOOD COUNT 5.22 x10^6/uL (4.30-5.70); RED CELL DISTRIBUTION WIDTH 14.7 % (11.5-14.5); WHITE BLOOD COUNT 5.4 x10^3/uL (4.0-11.0)
[2018-12-29 14:56] LABS: CALCIUM 8.3 mg/dL (8.5-10.1); CREATININE 0.9 mg/dL (0.7-1.3); GFR 104.5; POTASSIUM 3.5 mmol/L (3.5-5.1)
[2018-12-29 15:01] LABS: ALBUMIN 3.5 g/dL (3.4-5.0); ALBUMIN/GLOBULIN RATIO 1.1 (1.0-1.7); TOTAL BILIRUBIN 0.3 mg/dL (0.2-1.0); TOTAL PROTEIN 6.8 g/dL (6.4-8.2)
--- NOTE | 2018-12-29 15:35 | RAD ---
CT ANGIOGRAPHY CHEST INDICATION: Hemoptysis. Comparison: Chest radiograph 12/01/2018. TECHNIQUE: Following the uneventful administration of intravenous contrast, 100 cc Omnipaque 350, axial CT sections were obtained through the lungs and upper abdomen. Multiplanar reconstructions and MIP images were obtained. RS compliance statement: One or more of the following individualized dose reduction techniques were utilized for this examination: 1. Automated exposure control 2. Adjustment of the mA and/or kV according to patient size 3. Use of iterative reconstruction technique FINDINGS: Pulmonary vasculature: No large central or lobar pulmonary thrombolic disease. Segmental and subsegmental branches not well evaluated due to suboptimal contrast opacification. Lungs and Airways: Asymmetric elevation of the right hemidiaphragm. Right basilar relaxation atelectasis Bibasilar dependent atelectasis. No pulmonary mass or consolidation. No abnormality of the central airways. Pleura: The pleural spaces are normal. Heart and Mediastinum: The visualized thyroid is normal in size and attenuation. No axillary or supraclavicular lymphadenopathy. No mediastinal, hilar or retrocrural lymphadenopathy. The heart and pericardium are within normal limits. The great vessels of the thorax are normal. Abdomen: Small left renal cyst. Calcified splenic granulomas. Bones and Soft Tissues: The visualized bones and chest wall soft tissues are within normal limits. IMPRESSION: 1. No large central or lobar pulmonary thrombolic disease. Segmental and subsegmental pulmonary arterial branches not well evaluated due to suboptimal contrast opacification. 2. No pulmonary mass or consolidation. Electronically signed by: Aydin Ellis MD (12/29/2018 3:32 PM) [id number]
[2018-12-29 16:43] VITALS: BP 132/68
== END 2018-12-29 16:53 | disposition home or self-care (01) ==
LOC: ER 13:36
DX: R04.2 Hemoptysis (principal); I10 Essential (primary) hypertension; E78.00 Pure hypercholesterolemia, unspecified; Z88.8 Allergy status to other drugs, medicaments and biological substances
CPT/HCPCS: 36415; 71275; 80053; 85025; 99285; Q9967